=== PATIENT | female | born 1980 | race Caucasian/White ===

== ENCOUNTER → 2018-05-01 13:58 | Outpatient (CLI) | payer OTHER, SELFPAY ==
[2018-05-01 18:16] LABS: Hemoglobin A1c 5.3 % (4.2-6.3)
[2018-05-01 18:29] LABS: Estradiol 152.4 pg/mL; Free T3 2.8 pg/mL (2.18-3.98); T4 Free Direct 1.12 ng/dL (0.76-1.46); Thyroid Stim Hormone (TSH) 0.94 uIU/mL (0.358-3.74)
[2018-05-01 18:30] LABS: Progesterone Level 8.42 ng/mL (See Comment)
== END ==
PROVIDERS: Family Provider Family Medicine; PCP Family Medicine; Visit Provider Family Medicine
DX: D50.9 Iron deficiency anemia, unspecified (principal); N92.0 Excessive and frequent menstruation with regular cycle
CPT/HCPCS: 36415; 82670; 83036; 84144; 84403; 84439; 84443; 84481

== ENCOUNTER → 2018-05-09 10:15 | Outpatient (CLI) | payer OTHER, SELFPAY ==
[2018-05-09 10:31] LABS: Absolute Lymphocyte Count 1.48 X10^3/ul (0.83-4.51); Absolute Neutrophil Count 3.2 X10^3/uL (2.0-7.7); Basophil# 0.01 X10^3/uL; Basophil% 0.2 % (0-1); Eosinophils% 7.3 % (0-5); Hematocrit 33.3 % (37-47); Hemoglobin 9.3 g/dl (12.0-15.0); Lymphocyte # 1.48 X10^3/ul (4.0); Lymphocyte % 27.1 % (19-41); Mean Corp Hgb Conc 27.9 g/gl (32-36); Mean Corpuscular Hgb 19.8 pg (27.0-32.0); Mean Corpuscular Volume 70.9 fL (81-99); Mean Platelet Vol. 9.9 fl (6.2-12.0); Monocyte# 0.35 X10^3/uL; Monocyte% 6.4 % (0-10); Neutrophil # 3.22 X10^3/uL (2.7-7.7); Neutrophil % 58.8 % (47-70); Platelet Count 362 K/mm3 (150-450); RBC Distribution Width CV 16.9 % (11.6-14.6); RBC Distribution Width SD 43.8 fl (35.1-43.9); White Blood Count 5.5 K/mm3 (4.4-11.0)
[2018-05-09 10:32] LABS: Differential Indicated SCAN CRITERIA MET; POSITIVE COUNT NO; POSITIVE DIFFERENTIAL NO; POSITIVE MORPHOLOGY YES
[2018-05-09 10:53] LABS: Ferritin 3 ng/mL (8-252); Iron 12 ug/dL (50-170)
[2018-05-09 11:00] LABS: Anisocytosis 1+; Hypochromasia 1+
== END ==
PROVIDERS: Family Provider Family Medicine; PCP Family Medicine; Visit Provider Family Medicine
DX: D50.9 Iron deficiency anemia, unspecified (principal)
CPT/HCPCS: 36415; 82728; 83540; 85025

== ENCOUNTER 2018-06-07 11:59 | Day surgery (SDC) | payer OTHER, SELFPAY ==
[2018-05-31 09:51] LABS: Prothrombin Time (Protime)PT. 13.4 SECONDS (11.7-14.9)
[2018-05-31 09:52] LABS: Partial Thromboplast Time 34.9 Seconds (24.1-36.2)
[2018-05-31 10:05] LABS: Hematocrit 36.6 % (37-47); Hemoglobin 10.5 g/dl (12.0-15.0); Mean Corp Hgb Conc 28.7 g/gl (32-36); Mean Corpuscular Hgb 20.8 pg (27.0-32.0); Mean Corpuscular Volume 72.3 fL (81-99); Mean Platelet Vol. 9.9 fl (6.2-12.0); Platelet Count 372 K/mm3 (150-450); RBC Distribution Width CV 19.4 % (11.6-14.6); RBC Distribution Width SD 50.3 fl (35.1-43.9); Red Blood Count 5.06 M/mm3 (4.2-5.4); White Blood Count 6.5 K/mm3 (4.4-11.0)
[2018-05-31 10:07] LABS: Scan Indicated on CBC? Y/N YES- FLAGS NOTED
[2018-05-31 10:42] LABS: Differential Comment SCANNED
[2018-06-03 07:07] LABS: Protein C Antigen 96 % (60-150)
[2018-06-05 12:43] LABS: Protein C, Functional 121 % (73-180); Protein S, Free 77 % (57-157); Protein S, Funtional 71 % (63-140); Protein S, Total 73 % (60-150)
--- NOTE | 2018-06-07 | EMB_PTH ---
PATIENT: FLAVIO GUTIERREZ [place] [facility] [place][id number] AGE/SX: 38/F ROOM: RE06/07/[address]: Dr. Alicja Grajeda MD : 1980 BED: DIS: 06/07/2018 SPEC #: [id number] RECD: 06/07/18 14:45 STATUS: KAYA REChinmay #: [id number] UDAY: 06/07/18 00:[address]: Alicja Grajeda DEPT: SURGICAL PATHOLOGY RECD BY: Paras Tran ENTERED: 06/07/18 14:45 SP TYPE: ENDOM BX/C BAILEE DR: DO Dr. Frank Kaufman DO Tissues: Endometrium, NOS Procedures: Surgery Specimen Level IV HEADER OPERATION: Hysteroscopy, dilation and curettage PRE-OP DIAGNOSIS: Thickened endometrium and menorrhagia TISSUE SUBMITTED: Endometrium MICROSCOPIC DIAGNOSIS Endometrial curettings: Proliferative endometrium with glandular and stromal breakdown. Fragments of benign endocervical mucosa with chronic inflammation and squamous metaplasia, fragments of benign ectocervical epithelium, blood and mucous. FAVIO:romeo 06/08/18 MICROSCOPIC DESCRIPTION Slides are reviewed. GROSS DESCRIPTION Received in fixative is one container labeled with the patient's name and designated endometrium. The specimen consists of multiple fragments of hemorrhagic soft tissue mixed with mucoid tissue that in aggregate measure 5 x 3 x 0.3 cm. The entire specimen is submitted in two cassettes. / FAVIO:romeo 06/07/18 TC:5 CPT: 70491
[2018-06-07 12:17] VITALS: BP 116/81; PULSE 98; RESP 18; TEMP 36.9; O2SAT 97; BMI 40.6
[2018-06-07] MEDS: Heparin Injection 5,000 UNITS/ML Syringe 5000 UNITS SC (12:26)
[2018-06-07 13:55] VITALS: BP 116/81; BP 123/56; PULSE 118; RESP 16; TEMP 36.6; O2SAT 96
[2018-06-07 14:00] VITALS: BP 116/81; BP 121/66; PULSE 96; RESP 16; O2SAT 94
[2018-06-07 14:05] VITALS: BP 116/81; BP 126/72; PULSE 97; RESP 16; O2SAT 96
--- NOTE | 2018-06-07 14:07 | PCM.OPRPT ---
Problem List (1) Menorrhagia Status: Acute (2) Menorrhagia Status: Acute (3) Endometrial thickening on ultrasound Status: Acute Report of Operation Date of Procedure: 06/07/18 Pre-Operative Diagnosis: Menorrhagia and thickened endometrium Post-Operative Diagnosis: Same plus multiple fibroids Surgery/Procedure Performed:: DNC, and diagnostic hysteroscopy Description of Surgical Findings:: Uterus was sounded to approximately 9 cm in an anterior position. Uterus was fully mobile. Protruding fibroids from the myometrium. cna pct: Jenae Benitez Anesthesiologist: Shawn Martin Special Medications: 10 cc of 1% lidocaine placed to the cervix Specimen's removed: Endometrium Drains: None Estimated Blood Loss (mL): Minimal Fluids Replaced: Lactated Ringer Description of Procedure: The patient presented to the operating suite and n.p.o. status from midnight the night before. Patient was placed on the operating table and underwent MAC anesthesia after monitors were placed. A timeout had occurred upon the patient entering the room. Once the MAC anesthetic was found to be adequate she was placed in the dorsal lithotomy position via the Sherif stirrups. The patient then underwent prepping and draping she also had straight catheter. The uterus was sounded to about 9 cm in an anterior position. Cervical eyes was easily dilated to accommodate a 5 mm hysteroscope. Entry into the endometrial cavity with the hysteroscope revealed multiple fibroids appearing to be protruding from the muscular part of the uterus into the endometrial cavity rights. Collection of that tissue occurred and was sent for pathological evaluation. Replacement of the hysteroscope into the endometrial cavity revealed removal of the visible tissue that have been noted previously. Hysteroscope was removed the patient was awakened in stable condition and taken to recovery room for discharge to the home setting. Grafts/Implants Used: None - Complications None - Admit VTE Documentation VTE Present on Admission: No VTE Mechan Device Prophylaxis: SCD's VTE Pharm Prophylaxis ordered?: Yes
[2018-06-07 14:08] VITALS: BP 116/79; BP 116/81; PULSE 95; RESP 16; TEMP 36.6; O2SAT 98
--- NOTE | 2018-06-07 14:14 | PCM.DC.D&C ---
Discharge Diet: No Restrictions Discharge Activity: Return to Normal Activity, May Shower, May Take a Tub Bath - in 2 weeks. Return to work on:: 06/12/18 May shower in (days): 0 - TODAY May resume sexual activity in: 2 weeks Weight Bearing Status: Full weight bearing Lifting Restrictions: 10 Additional Activity Instructions:: Ambulate often with periods of rest between Call your doctor if you observe: Inability to urinate, Inability to have a bowel movement, Using more than one pad per hour Cleanse incision/area with: Soap & Water Allergies/Adverse Reactions: Allergies iodine Allergy (Verified 05/26/18 14:22) Unknown shellfish Allergy (Uncoded 07/20/13 05:28) Swelling Medications to take at Discharge Ferrous Sulfate [Iron] 325 mg PO DAILY 05/26/18 Multivitamin [Animal Shapes] 2 each PO DAILY 05/26/18 Oxycodone HCl/Acetaminophen [Percocet 5/325] 1 - 2 tab PO Q4H PRN PRN 7 Days #14 tab 06/07/18 The following prescriptions were given: Oxycodone HCl/Acetaminophen [Percocet 5/325] 1 - 2 tab PO Q4H PRN PRN 7 Days #14 tab PRN Reason: Cramp Primary Care Physician: Alize Narayanan DO [Primary Care Provider] - Test Results: Test results from this visit will be discussed in further detail at your follow-up appointment, if applicable. Please Follow Up With: Alicja Grajeda MD When: one week in office. Call for appointment if not already arranged
[2018-06-07 15:32] VITALS: BP 116/81
== END 2018-06-07 15:35 | disposition home or self-care (01) ==
LOC: SDC 11:59 → AC 12:00
PROVIDERS: Family Provider Family Medicine; PCP Family Medicine; Visit Provider Obstetrics & Gynecology
PROC: 0UDB8ZZ Extraction of Endometrium, Via Natural or Artificial Opening Endoscopic (ICD-10-PCS; CPT 58558; principal; 2018-06-07 13:25)
DX: N92.0 Excessive and frequent menstruation with regular cycle (principal); D25.9 Leiomyoma of uterus, unspecified; N85.8 Other specified noninflammatory disorders of uterus; R93.8 Abnormal findings on diagnostic imaging of other specified body structures; L93.0 Discoid lupus erythematosus; J45.909 Unspecified asthma, uncomplicated; K58.9 Irritable bowel syndrome, unspecified; K21.9 Gastro-esophageal reflux disease without esophagitis; Z79.899 Other long term (current) drug therapy
CPT/HCPCS: 58558; 36415; 85027; 85302; 85303; 85305; 85306; 85610; 85730; 86850; 86900; 88305; J7120

== ENCOUNTER 2018-11-02 11:10 | Day surgery (SDC) | payer OTHER, SELFPAY ==
[2018-10-26 14:56] LABS: Hematocrit 42.5 % (37-47); Mean Corp Hgb Conc 30.6 g/gl (32-36); Mean Corpuscular Hgb 25.7 pg (27.0-32.0); Mean Platelet Vol. 10.4 fl (6.2-12.0); Platelet Count 294 K/mm3 (150-450); RBC Distribution Width CV 14.5 % (11.6-14.6); RBC Distribution Width SD 44.2 fl (35.1-43.9); Red Blood Count 5.06 M/mm3 (4.2-5.4); White Blood Count 7.5 K/mm3 (4.4-11.0)
[2018-10-26 14:57] LABS: Scan Indicated on CBC? Y/N NO
[2018-10-26 15:07] LABS: Prothrombin Time (Protime)PT. 12.8 SECONDS (11.7-14.9)
[2018-10-26 15:08] LABS: Partial Thromboplast Time 33.6 Seconds (24.1-36.2)
[2018-11-02] VITALS (10 sets, daily range): BP systolic 93–134; BP diastolic 56–72; PULSE 68–96; RESP 16–18; TEMP 36.2–37.2; O2SAT 93–100; BMI 41.2
[2018-11-02 11:32] LABS: Internal QC Validated? YES +Cl - CLEAR BKGD; Pregnancy, Urine Negative Negative
[2018-11-02 11:54] LABS: Anion Gap 9 (5-15); BUN 7 mg/dL (7-18); BUN/Creat Ratio 9.5 RATIO (10-20); Calcium,Total 8.1 mg/dL (8.5-10.1); Chloride 106 mmol/L (98-107); Creatinine, Serum 0.74 mg/dL (0.55-1.02); EST Glomerular Filtration Rate 93 mL/min (>60); Est Glom Filt Rate - Afr Amer 112 mL/min (>60); Estimated Creatinine Clearance 84.43 ml/min; Glucose 83 mg/dL (74-106); Potassium 3.7 mmol/L (3.5-5.1); Sodium Level 140 mmol/L (136-145)
--- NOTE | 2018-11-02 12:03 | HP.PCM_ITS ---
- Problem List (1) Menorrhagia Status: Acute History Date of Admission: 11/02/18 History of this : This is a 38 year-old, G [], P [], at weeks gestational age. Allergies iodine Allergy (Verified 10/26/18 10:08) Unknown shellfish Allergy (Uncoded 10/26/18 10:08) Swelling Home Medications: Home Medications Ferrous Sulfate [Iron] 325 mg PO DAILY 05/26/18 Multivitamin [Animal Shapes] 2 each PO DAILY 05/26/18 Albuterol Inhaler [Ventolin Hfa (SP)] 1 - 2 puff INHALATION Q4H PRN PRN 10/26/18 Progesterone, Micronized [Progesterone] 300 mg PO DAILY 10/26/18 Smoking Status: Never smoker History Past Pregnancies: Past Pregnancies Delivery Date Name GA/Weeks Outcome Route Weight Gender Labor Length Anesthesia Delivery Location Provider FOB Review of Systems Constitutional: Denies: Chills, Fever, Weight Change HEENT: Denies: Difficulty Hearing, Difficulty Swallowing, Nasal bleeding, Nasal Congestion, Sore Throat Cardiovascular: Denies: Chest Pain, Palpitations Respiratory: Denies: Shortness of Breath, Wheezing Gastrointestinal: Denies: Constipation, Diarrhea, Nausea, Vomiting Genitourinary: Denies: Dysuria, Frequency, Hematuria, Incontinence, Urgency Gynecological: Reports: Excessively long or heavy periods Musculoskeletal: Denies: Joint Pain, Muscle pain Skin: Denies: Lesions, Skin Changes Neurological: Denies: Focal weakness, Numbness Psychiatric: Denies: Anxiety, Depression Endocrine: Denies: Heat/ Cold Intolerance Hematologic/ Lymphatic: Denies: Easy Bleeding Physical Exam Vitals: Vital Signs Temp Pulse Resp BP Pulse Ox 99.0 F 85 18 134/72 H 100 11/02/18 11:31 11/02/18 11:31 11/02/18 11:31 11/02/18 11:31 11/02/18 11:31 General: Alert, Oriented x3, No apparent distress HEENT: Atraumatic, Normocephalic. 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 Negative for: Vulvar lesions Assessment/Plan All Active Problems Menorrhagia (Acute) Menorrhagia (Acute) Endometrial thickening on ultrasound (Acute) This is a 38 year-old, long standing history of menorrhagia with known leiomyoma. Attempts to control cycles medically have been futile. Endometrial evaluation via D and C in July, with benign endometrium. Request for hysterectomy. 1. Menorrhagia 2. Leiomyoma 3. LTCS history patient request for hysterectomy. No prolapse noted and suspected pelvic adhesive disease. Decision for robotic assisted hysterectomy, possible oophorectomy if diseased anatomy. The preop preparation including bowel prep, the intraop procedures and the postop recovery reviewed. The risks of bleeding, infection and other organ damage including bladder, bowel and ureteral damage reviewed, accepted and consented. 4. Prior cholecystectomy
--- NOTE | 2018-11-02 13:00 | HYST_PTH ---
PATIENT: FLAVIO GUTIERREZ LOC: [facility] [place] U#:[id number] AGE/SX: 38/F ROOM: RE11/02/[address]: Dr. Alicja Grajeda MD : 1980 BED: DIS: 11/03/2018 SPEC #: [id number] RECD: 11/03/18 07:15 STATUS: KAYA CANDE #: [id number] UDAY: 11/02/18 13:[address]: Alicja Grajeda DEPT: SURGICAL PATHOLOGY RECD BY: Paras Tran ENTERED: 11/03/18 09:08 SP TYPE: HYSTERECT OTHR DR: Dr. Alize Narayanan, DO Tissues: Uterus, NOS Procedures: Surgery Specimen Level V HEADER OPERATION: Robotic assisted vaginal hysterectomy, bilateral salpingo-oophorectomy PRE-OP DIAGNOSIS: Menorrhagia, leiomyoma TISSUE SUBMITTED: Uterus, cervix, bilateral fallopian tubes MICROSCOPIC DIAGNOSIS Uterus, hysterectomy: Cervix - focal acute inflammation, mild chronic inflammation and squamous metaplasia. Endometrial polyps - benign endometrial polyp with mixed secretory and focal simple hyperplasia without atypia. [place] endometrium - secretory change. Myometrium - hyalinized leiomyoma with microcalcifications and extensive adenomyosis. Right fallopian tube - no pathologic change. Left fallopian tube - benign paratubal cysts. AM:romeo 11/06/18 MICROSCOPIC DESCRIPTION Slides are reviewed. GROSS DESCRIPTION Received in fixative is one container labeled with the patient's name and designated uterus. The specimen consists of a uterus with attached cervix and attached right and left fallopian tubes. The uterus with cervix measures 9.5 x 6 x 5.5 cm and weighs 132 gm. The cervix is grossly free of mass lesions. The anterior surface of the uterus is irregular. The endocervical canal measures 4 cm in length and is grossly unremarkable. The triangular endometrial cavity measures 5 x 3.5 cm and is completely occupied by a soft pink-washington polyp measuring 5.5 x 3 x 1.2 cm. Serial sections of the myometrium reveal a firm, rubbery polypoid mass measuring 3 cm in greatest dimension. This mass appears to be contiguous with the endometrial polyp previously described. The myometrium without polyp measures 1.6 cm in thickness. This larger polypoid lesion is present in the posterior wall. The posterior serosal surface is inked in black ink. Also present in the subserosal location is a firm, rubbery and indurated yellow-washington lesion measuring 1.5 cm in greatest dimension. The right and left fallopian tubes are similar in appearance averaging 6 cm in length and 0.6 cm in average diameter. The right fallopian tube contains a normal appearing fimbriated end. The left fallopian tube contains a normal appearing fimbriated end. The soft tissue adjacent to the fimbriated end contains two glistening peritubal cysts ranging in size from 1 to 1.5 cm and containing clear fluid. Electric Power Machine Operator sections are submitted in 16 cassettes as follows: 1 - anterior cervix, inked, 2 - posterior cervix, 3-6 - endometrial polyp with adjacent myometrium, 7 - anterior myometrial wall, 8 & 9 - posterior myometrial wall, 10 - smaller myometrial nodule, 11-14 - larger myometrial nodule, 15 - right fallopian tube, 16 - left fallopian tube and paratubal cysts. / AM:romeo 11/03/18 TC:1 CPT: 22739
[2018-11-02] MEDS: Methylene Blue 1% 100 MG/10 ML VIAL (14:45)
--- NOTE | 2018-11-02 15:17 | PCM.OPRPT ---
Problem List (1) Menorrhagia Status: Acute Report of Operation Date of Procedure: 11/02/18 Pre-Operative Diagnosis: Menorrhagia and uterine leiomyoma Post-Operative Diagnosis: Same plus pelvic adhesive disease Surgery/Procedure Performed:: Extensive enterolysis, bilateral salpingectomy bladder instillation with methylene blue Description of Surgical Findings:: Piece of disease was encountered at the vesicouterine peritoneal region which correlated to the prior that the patient had. Bilateral ovaries noted to be normal with bilateral Filshie clips related to prior tubal ligation customer experience specialist: Dennys Hill Type of Anesthesia:: General Anesthesiologist: Manny Swann Special Medications: Cefotetan 2gms IV preop and Paulette placed to the pelvis Specimen's removed: Cervix, uterus, bilateral fallopian tubes Drains: none Estimated Blood Loss (mL): 200 cc Fluids Replaced: Lactated ringer Description of Procedure: Patient presented to the operating room status. Patient undergone a palp in the home setting. Timeout occurred upon entry into the room the patient was then placed on the surgical bed of the via the setting. Was found to be adequate the patient was placed in the dorsolithotomy position. Tilt test occurred and no movement was noted. Patient was then prepped and draped in the normal sterile fashion Pittman catheter was placed by myself illustrating the Pyridium stained urine. Into the cervix was grasped elevated uterus was sounded to approximately 97 cm in anteflexed position. The middle sized the weighted speculum and then was then removed. Gloves were changed and moving to the top of the patient the patient had Correa's point identification and final millimeter incision through this incision site Veress needle was placed in water test reassured abdominal cavity. A Visiport was then used to place a 5 mm laparoscope into the incision with full visualization. Irrigation of the pelvis revealed that no infraumbilical adhesions were noted at the prior cholecystectomy site but a tremendous amount of vesicouterine pelvic adhesive disease was noted. The 8 mm nondisposable robotic trocar was placed under direct visualization in the umbilicus for the camera. Left and right robotic arms each being by 8 mm were placed under direct visualization in the left and right mid quadrants. The right upper quadrant became the location of the insufflator. The robot was then docked to the patient's side and robotic arms were connected to robotic trochars. The left robotic arm became the vessel sealer in the right robotic arm became the monopolar preico. Each was placed under direct visualization. At this point in time de-gowned and went to the consult the robot to take over control of the robotic function. Once at the robotic console christianity of normal anatomy with extreme and extensive enteral lysis occurred. The bladder had been backfilled with methylene blue to aid in the identification of the bladder with the extensive enteral lysis at the vesicouterine peritoneum. The left round ligament was grasped cauterized and transected the broad ligament into anterior and posterior leaves. The left fallopian tube was dissected away from the through the mesosalpinx and the uterine ovarian ligament was cauterized and transected. Skeletonization of the uterine vessels on the pain uterine vessels on the patient's left side occurred and cauterization and transection of the uterine vessels thus occurred. Moving to the right side of the patient the round ligament was identified cauterized and transected the broad ligament anterior posterior leaves and the right fallopian tube was disconnected through the mesosalpinx as was the utero-ovarian ligament which was cauterized and then transected. Skeletonization of the uterine vessels occurred. With the methylene blue instilled inside the bladder careful and precise dissection of the vesicouterine peritoneum away from the uterus occurred. The cardinal ligament was identified cauterized and transected bilaterally. The uterosacral ligament was identified and cauterized and transected bilaterally as well. Continue enteral lysis occurred around the sidewall of the uterus on both sides with the eventual notation of the vesicouterine peritoneal larynx that was safely removed from the lower uterine segment. Incision at the cervix at the 12:00 region was continued for colpotomy in the clockwise fashion sequentially around the entire cervical region releasing the cervix away from the vaginal mucosa. Direct uterus bilateral fallopian tubes were then removed from the vagina. Identification and tracing of both ureters was noted to be well away from the area of surgery and peristalsis was noted bilateral. Irrigation of the pelvis occurred at the same time. The instruments were changed with the left arm being a large grasper in the right arm being made a suture cut. My collections assistant sequentially placed over Vicryl sutures through the collections assistant port so that initially a angle stitch connecting the vaginal cuff to the uterosacral cardinal complex and occurred and hemostasis was noted. This occurred first on the left side followed by the exact same stitch on the patient's right vaginal cuff. 2 additional stitches of 0 Vicryl suture in [id number] fashion were placed at the vaginal cuff. Hemostasis was noted. Irrigation occurred. Paulette was then placed to the entire pelvic region. The sponge, instrument counts, and suture were correct x2. Patient was awakened in stable condition to be taken to the recovery room for overnight observation. Grafts/Implants Used: None - Complications None - Admit VTE Documentation VTE Present on Admission: No VTE Mechan Device Prophylaxis: SCD's VTE Pharm Prophylaxis ordered?: No Reason prophylaxis not ordered:: Procedure Not Indicated
--- NOTE | 2018-11-02 15:30 | OP.PCM_ITS ---
Problem List (1) Menorrhagia Status: Acute Report of Operation Date of Procedure: 11/02/18 Pre-Operative Diagnosis: Menorrhagia and uterine leiomyoma Post-Operative Diagnosis: Same plus pelvic adhesive disease Surgery/Procedure Performed:: Extensive enterolysis, bilateral salpingectomy bladder instillation with methylene blue Description of Surgical Findings:: Piece of disease was encountered at the vesicouterine peritoneal region which correlated to the prior that the patient had. Bilateral ovaries noted to be normal with bilateral Filshie clips related to prior tubal ligation buhr mill operator: Dennys Hill Type of Anesthesia:: General Anesthesiologist: Manny Swann Special Medications: Cefotetan 2gms IV preop and Paulette placed to the pelvis Specimen's removed: Cervix, uterus, bilateral fallopian tubes Drains: none Estimated Blood Loss (mL): 200 cc Fluids Replaced: Lactated ringer Description of Procedure: Patient presented to the operating room status. Patient undergone a palp in the home setting. Timeout occurred upon entry into the room the patient was then placed on the surgical bed of the via the setting. Was found to be adequate the patient was placed in the dorsolithotomy position. Tilt test occurred and no movement was noted. Patient was then prepped and draped in the normal sterile fashion Pittman catheter was placed by myself illustrating the Pyridium stained urine. Into the cervix was grasped elevated uterus was sounded to approximately 97 cm in anteflexed position. The middle sized the weighted speculum and then was then removed. Gloves were changed and moving to the top of the patient the patient had Correa's point identification and final millimeter incision through this incision site Veress needle was placed in water test reassured abdominal cavity. A Visiport was then used to place a 5 mm laparoscope into the incision with full visualization. Irrigation of the pelvis revealed that no infraumbi lical adhesions were noted at the prior cholecystectomy site but a tremendous amount of vesicouterine pelvic adhesive disease was noted. The 8 mm nondisposable robotic trocar was placed under direct visualization in the umbilicus for the camera. Left and right robotic arms each being by 8 mm were placed under direct visualization in the left and right mid quadrants. The right upper quadrant became the location of the insufflator. The robot was then docked to the patient's side and robotic arms were connected to robotic trochars. The left robotic arm became the vessel sealer in the right robotic arm became the monopolar perico. Each was placed under direct visualization. At this point in time de-gowned and went to the consult the robot to take over control of the robotic function. Once at the robotic console baptist of normal anatomy with extreme and extensive enteral lysis occurred. The bladder had been backfilled with methylene blue to aid in the identification of the hannah dder with the extensive enteral lysis at the vesicouterine peritoneum. The left round ligament was grasped cauterized and transected the broad ligament into anterior and posterior leaves. The left fallopian tube was dissected away from the through the mesosalpinx and the uterine ovarian ligament was cauterized and transected. Skeletonization of the uterine vessels on the pain uterine vessels on the patient's left side occurred and cauterization and transection of the uterine vessels thus occurred. Moving to the right side of the patient the round ligament was identified cauterized and transected the broad ligament anterior posterior leaves and the right fallopian tube was disconnected through the mesosalpinx as was the utero-ovarian ligament which was cauterized and then transected. Skeletonization of the uterine vessels occurred. With the methylene blue instilled inside the bladder careful and precise dissection of the vesicouterine peritoneum away from the uterus occurred. The cardinal ligament was identified cauterized and transected bilaterally. The uterosacral ligament was identified and cauterized and transected bilaterally as well. Continue enteral lysis occurred around the sidewall of the uterus on both sides with the eventual notation of the vesicouterine peritoneal larynx that was safely removed from the lower uterine segment. Incision at the cervix at the 12:00 region was continued for colpotomy in the clockwise fashion sequentially around the entire cervical region releasing the cervix away from the vaginal mucosa. Direct uterus bilateral fallopian tubes were then removed from the vagina. Identification and tracing of both ureters was noted to be well away from the area of surgery and peristalsis was noted bilateral. Irrigation of the pelvis occurred at the same time. The instruments were changed with the left arm being a large grasper in the right arm being made a suture cut. My scheduling assistant sequentially placed over Vicryl sutures through the scheduling assistant port so that initially a angle stitch connecting the vaginal cuff to the uterosacral cardinal complex and occurred and hemostasis was noted. This occurred first on the left side followed by the exact same stitch on the patient's right vaginal cuff. 2 additional stitches of 0 Vicryl suture in [id number] fashion were placed at the vaginal cuff. Hemostasis was noted. Irrigation occurred. Paulette was then placed to the entire pelvic region. The sponge, instrument counts, and suture were correct x2. Patient was awakened in stable condition to be taken to the recovery room for overnight observation. Grafts/Implants Used: None - Complications None - Admit VTE Documentation VTE Present on Admission: No VTE Mechan Device Prophylaxis: SCD's VTE Pharm Prophylaxis ordered?: No Reason prophylaxis not ordered:: Procedure Not Indicated
[2018-11-02] MEDS: Lactated Ringers 1,000 ML 125 ML IV (16:32)
[2018-11-02] MEDS: Phenazopyridine 95 MG Tablet 190 MG PO (21:25)
[2018-11-02] MEDS: Ketorolac 30 MG/ML Syringe IV (21:26)
[2018-11-02] MEDS: Metoclopramide 10 MG/2 ML Vial IV (21:26)
[2018-11-02] MEDS: Famotidine 20 MG Tablet PO (21:28)
[2018-11-03] MEDS: Lactated Ringers 1,000 ML 125 ML IV (00:08)
[2018-11-03] MEDS: Ketorolac 30 MG/ML Syringe IV (03:33)
[2018-11-03 03:36] VITALS: BP 103/63; PULSE 83; RESP 16; TEMP 36.8; O2SAT 95
[2018-11-03] MEDS: Metoclopramide 10 MG/2 ML Vial IV (06:25)
[2018-11-03] MEDS: Phenazopyridine 95 MG Tablet 190 MG PO (06:25)
[2018-11-03 06:34] LABS: Hematocrit 35.4 % (37-47); Hemoglobin 11.2 g/dl (12.0-15.0); Mean Corp Hgb Conc 31.6 g/gl (32-36); Mean Corpuscular Hgb 26.7 pg (27.0-32.0); Mean Corpuscular Volume 84.3 fL (81-99); Mean Platelet Vol. 10.5 fl (6.2-12.0); Platelet Count 257 K/mm3 (150-450); RBC Distribution Width CV 13.9 % (11.6-14.6)
[2018-11-03 06:36] LABS: Scan Indicated on CBC? Y/N NO
[2018-11-03 09:45] VITALS: BP 121/65; PULSE 81; RESP 18; TEMP 36.6; O2SAT 98
[2018-11-03] MEDS: Ketorolac 10 MG Tablet PO (09:45)
[2018-11-03] MEDS: Famotidine 20 MG Tablet PO (09:47)
--- NOTE | 2018-11-03 10:02 | DCINST_ITS ---
Discharge Diet: - - No beef, pork or fresh vegetables for 2 weeks after surgery. Water intake a minimum of 120 ounces daily. Protein shakes or smoothies encouraged at least 2x daily. Discharge Activity: Return to Normal Activity, May Not Drive - while taking narcotic pain medications., May Shower May shower in (days): 0 - TODAY May resume sexual activity in: 8 weeks Weight Bearing Status: Full weight bearing Lifting Restrictions: 5 pounds Additional Activity Instructions:: Ambulate frequently around the house with periods of rest in between. Limit stairs. Call your doctor if your incision/area has: Sudden Increased Bleeding Call your doctor if you observe: Inability to urinate, Inability to have a bowel movement, Using more than one pad per hour Remove Dressing in (days):: 0 - TODAY. remove with warm, soapy water and leave open to air Cleanse incision/area with: Soap & Water Allergies/Adverse Reactions: Allergies iodine Allergy (Verified 10/26/18 10:08) Unknown shellfish Allergy (Uncoded 10/26/18 10:08) Swelling Medications to take at Discharge Multivitamin [Animal Shapes] 2 each PO DAILY 05/26/18 Albuterol Inhaler [Ventolin Hfa (SP)] 1 - 2 puff INHALATION Q4H PRN PRN 10/26/18 Primary Care Physician: Alize Narayanan DO [Primary Care Provider] - Test Results: Test results from this visit will be discussed in further detail at your follow- up appointment, if applicable. Please Follow Up With: Alicja Grajeda MD When: 1-2 weeks
--- NOTE | 2018-11-03 10:42 | PCM.PN.OB ---
Subjective: Feels well this am. Ambulating well. + flatus. Tolerating po intake of meds and diet. - Physical Exam General: No apparent distress, Well developed, Well nourished HEENT: PERRLA, EOMI, Normocephalic Oral: Moist Mucosa Neck: Supple Lungs: Clear to auscultation, Normal air movement Cardiovascular: Regular rate, Regular Rhythm Abdomen: Bowel Sounds Present, Soft, Non Tender, Non-Distended - Incisions x 5 are bandaged and stable Extremities: No edema, No Calf Tenderness Skin: No rashes Musculoskeletal: No Tenderness to Palpation of Joints or Extremities, No Muscle Wasting Neurological: Cranial nerves II-XII grossly intact Vital Signs Temp Pulse Resp BP Pulse Ox 98.3 F 83 16 103/63 95 11/03/18 03:36 11/03/18 03:36 11/03/18 03:36 11/03/18 03:36 11/03/18 03:36 Oxygen Flow Rate (L/min) 2 Oxygen Delivery Method Room Air Weight: 232 lb 12.93 oz Body Mass Index (BMI) 41.2 Intake and Output for Last 24 Hours 11/01/18 11/02/18 11/03/18 23:59 23:59 23:59 Intake Total 2450 / 2450 2069 / 0 Output Total 150 / 150 1999 / 1999 Balance 2300 / 2300 70 / 70 Laboratory Tests Past 24 Hrs 11/02/18 11/02/18 11/03/18 11:22 11:30 06:10 WBC 10.0 RBC 4.20 Hgb 11.2 L Hct 35.4 L MCV 84.3 MCH 26.7 L MCHC 31.6 L RDW 13.9 RDW Differential 42.0 Plt Count 257 MPV 10.5 Sodium 140 Potassium 3.7 Chloride 106 Carbon Dioxide 25.0 Anion Gap 9 BUN 7 Creatinine 0.74 Estim Creat Clear Calc 84.43 Est GFR (MDRD) Af Amer 112 Est GFR (MDRD) Non-Af 93 BUN/Creatinine Ratio 9.5 L Glucose 83 Calcium 8.1 L Urine Test Negative Medical Necessity - Tobacco Use Smoking Status: Never smoker Tobacco Use: Non-smoker Assessment/Plan All Active Problems Menorrhagia (Acute) Menorrhagia (Acute) Endometrial thickening on ultrasound (Acute) 1. POD #1 - robotic assisted hysterectomy, bilateral salpingectomy and extensive enterolysis ambulating well tolerating oral pain meds + flatus voiding well discharge to home 2. Asthma stable
== END 2018-11-03 11:35 | disposition home or self-care (01) ==
LOC: SDC 11:11 → AC 11:19 → MS2 16:26
PROVIDERS: Family Provider Family Medicine; PCP Family Medicine; Referring Provider Obstetrics & Gynecology; Visit Provider Obstetrics & Gynecology
PROC: 0UT94ZZ Resection of Uterus, Percutaneous Endoscopic Approach (ICD-10-PCS; CPT 44005; principal; 2018-11-02 12:40)
DX: N84.0 Polyp of corpus uteri (principal); N92.0 Excessive and frequent menstruation with regular cycle; J45.909 Unspecified asthma, uncomplicated; D26.1 Other benign neoplasm of corpus uteri; N83.8 Other noninflammatory disorders of ovary, fallopian tube and broad ligament; N73.6 Female pelvic peritoneal adhesions (postinfective); Z98.51 Tubal ligation status; Z90.49 Acquired absence of other specified parts of digestive tract; Z91.013 Allergy to seafood
CPT/HCPCS: 44005; 51700; 58700; 36415; 80048; 81025; 85027; 85610; 85730; 86850; 86900; 88307; 97802; J7120; J2405

== ENCOUNTER → 2020-03-06 14:36 | Outpatient (CLI) | payer OTHER, SELFPAY ==
[2018-11-02 17:21] VITALS: BMI 41.2
--- NOTE | 2020-03-06 14:45 | CT_ITS ---
STUDY: CT ABDOMEN WITH CONTRAST REASON FOR EXAM: Female, 40 years old. RLQ PAIN, SMALL PALPABLE MASS X MONTHS. CONSTIPATION. RADIATION DOSAGE (If Supplied By Facility): CTDIvol = ( 14.775 ) mGy, DLP = ( 1176.20 ) mGycm TECHNIQUE: Transaxial images were obtained post I.V. administration of Oral and amp; IV Readi-CAT and amp; 100mL Isovue-300, and with oral contrast. Sagittal and coronal images were reconstructed. Individualized dose optimization techniques were used for this CT. COMPARISON: None. FINDINGS: The visualized lung bases are unremarkable. The visualized portions of the heart are within normal limits. Normal liver. The patient is status post cholecystectomy. Normal spleen. Normal pancreas. Normal bilateral adrenal glands. Normal right kidney. Normal left kidney. There is a small hiatal hernia. Normal small intestine. Normal colon. The appendix is visualized and appears normal. Normal abdominal aorta. Normal inferior vena cava. There is borderline retroperitoneal lymphadenopathy with enlarged nodes no greater than 10mm in the short axis diameter. The patient is status post hysterectomy. There is evidence of a 3.3 cm x 1.7 cm septated cyst in the right adnexa. Correlation with ultrasound is recommended. There is a 1.5 cm x 1.3 cm rounded soft tissue density in the subcutaneous tissues overlying the right mid abdomen lateral to the umbilicus. This may correspond to the patient''s palpable abnormality. This may be related to either prior trauma or possible subcutaneous injections. Normal osseous structures. CT/Abdomen/Pelvis WITH Contrast IMPRESSION: The palpable abnormality corresponds to a 1.5 cm x 1.3 cm rounded soft tissue density in subcutaneous tissue overlying the right midabdomen as described. 3.3 cm x 1.7 cm septated cyst in the right adnexa. Correlation with ultrasound is recommended. Electronically Signed: Ayaan Katz, at 15:38 EDT , Service support ,
== END ==
PROVIDERS: PCP Family Medicine; Referring Provider Family Medicine; Visit Provider Family Medicine
DX: R10.31 Right lower quadrant pain (principal); R19.00 Intra-abdominal and pelvic swelling, mass and lump, unspecified site
CPT/HCPCS: 74160; 74177; Q9967

== ENCOUNTER → 2020-03-10 12:18 | Outpatient (CLI) | payer OTHER, SELFPAY ==
[2018-11-02 17:21] VITALS: BMI 41.2
--- NOTE | 2020-03-10 12:20 | US_ITS ---
STUDY: ULTRASOUND OF THE FEMALE PELVIS - COMPLETE REASON FOR EXAM: Female, 40 years old. OVARIAN CYST ON CT TECHNIQUE: Transabdominal TECHNICAL QUALITY: Adequate. COMPARISON: None. FINDINGS: The patient is status post hysterectomy. The right ovary is visualized. The right ovary measures 2.3 cm x 2.4 cm x 3.4 cm. There is a 1.4 cm x 1.3 cm x 1.2 cm follicle in the right ovary. There is no visualized right adnexal mass or complex lesion. There is normal arterial and normal venous vascularity. The patient is status post left nephrectomy. There is no fluid in the cul-de-sac. The pre void volume of the bladder was 77 ml. Polycystic ovary disease: No. US/Pelvic (Non ) IMPRESSION: 1.4 cm x 1.3 cm x 1.2 cm dominant follicle in the right ovary. Electronically Signed: Ayaan Katz, at 14:45 EDT , Service support ,
== END ==
PROVIDERS: PCP Family Medicine; Referring Provider Family Medicine; Visit Provider Family Medicine
DX: N83.201 Unspecified ovarian cyst, right side (principal)
CPT/HCPCS: 76856

== ENCOUNTER → 2020-07-21 12:17 | Outpatient (CLI) | payer OTHER, SELFPAY ==
[2018-11-02 17:21] VITALS: BMI 41.2
--- NOTE | 2020-07-21 12:21 | BI_ITS ---
MAMMOGRAPHY - BILATERAL SCREENING REASON FOR EXAM: Female, 40 years old. Routine annual screening examination. PERTINENT HISTORY: Non-contributory. TECHNIQUE: Digital bilateral breast di (3D mammographic acquisition) in the CC and MLO projections. 2-D mediolateral oblique (MLO) and craniocaudad (CC) views of both breasts were obtained. CAD: Full Field Digital Mammography with Computer Added Detection was performed. COMPARISON: None. Baseline examination. FINDINGS: Breast Composition: The breasts are heterogeneously dense, which may obscure small masses. There are no dominant masses or suspicious calcifications. No other significant abnormalities are identified. BI/SCREEN MAMM (CAD) W/DI BILAT IMPRESSION: Negative screening mammogram. Yearly followup mammogram recommended. (A) ASSESSMENT CATEGORY: BIRADS Category 1: Negative. A letter regarding these results will be sent to the patient by the facility within 30 days. Approximately 10% of breast cancers are not detected by mammography. A normal mammogram should not delay biopsy of a clinically suspicious abnormality. [id number] Electronically Signed: Ayaan Katz, at 14:01 EDT , Service support ,
--- NOTE | 2020-07-21 12:21 | US_ITS ---
STUDY: ULTRASOUND OF THE FEMALE PELVIS - COMPLETE REASON FOR EXAM: Female, 40 years old. F/U RT OVARIAN CYST. S/P HYSTERECTOMY AND LEFT OOPHORECTOMY LMP: TECHNIQUE: Transabdominal TECHNICAL QUALITY: Adequate. COMPARISON: 03/10/2020 FINDINGS: Status post hysterectomy and left oophorectomy. The right ovary is visualized. The right ovary measures 1.9 x 1.9 x 2.0 cm. There is no right ovarian cyst or ovarian mass. There is no visualized right adnexal mass or complex lesion. There is normal arterial and normal venous vascularity. . There is no fluid in the cul-de-sac. The pre void volume of the bladder was ml. The post void volume of the bladder was ml. Polycystic ovary disease: No. US/Pelvic (Non ) IMPRESSION: Normal female pelvis after hysterectomy and left oophorectomy. Electronically Signed: Sonny Astorga MD at 17:51 EDT Tel , Service support ,
== END ==
PROVIDERS: PCP Family Medicine; Referring Provider Family Medicine; Visit Provider Family Medicine
DX: Z12.31 Encounter for screening mammogram for malignant neoplasm of breast (principal); N83.209 Unspecified ovarian cyst, unspecified side
CPT/HCPCS: 76856; 77063; 77067

== ENCOUNTER → 2020-08-01 07:33 | Outpatient (CLI) | payer OTHER, SELFPAY ==
[2018-11-02 17:21] VITALS: BMI 41.2
[2020-08-01 08:16] LABS: Absolute Lymphocyte Count 1.99 X10^3/uL (0.83-4.51); Absolute Neutrophil Count 4.2 X10^3/uL (2.0-7.7); Basophil# 0.03 X10^3/uL; Basophil% 0.4 % (0-1); Eosinophil# 0.39 X10^3/uL; Eosinophils% 5.6 % (0-5); Hemoglobin 14.1 g/dL (12.0-15.0); Lymphocyte # 1.99 X10^3/ul (4.0); Lymphocyte % 28.6 % (19-41); Mean Corp Hgb Conc 31.3 g/dL (32-36); Mean Corpuscular Hgb 27.4 pg (27.0-32.0); Mean Corpuscular Volume 87.4 fL (81-99); Mean Platelet Vol. 9.8 fl (6.2-12.0); Monocyte# 0.39 X10^3/uL; Monocyte% 5.6 % (0-10); NRBC Flagged by Analyzer 0 % (0-5); Neutrophil # 4.16 X10^3/uL (2.7-7.7); Neutrophil % 59.7 % (47-70); Platelet Count 312 K/mm3 (150-450); RBC Distribution Width CV 11.8 % (11.6-14.6); RBC Distribution Width SD 37.9 fl (35.1-43.9); Red Blood Count 5.15 M/mm3 (4.2-5.4)
[2020-08-01 08:43] LABS: ALB/GLOB Ratio 0.8 RATIO (0.9-2.4); AST(SGOT) 11 U/L (15-37); Alanine Aminotransfer ALT/SGPT 26 U/L (13-56); Albumin, Serum 3.3 g/dL (3.2-5.0); Alkaline Phosphatase 60 U/L (45-117); Anion Gap 6 (5-15); BUN 9 mg/dL (7-18); BUN/Creat Ratio 12.9 RATIO (10-20); Calcium,Total 8.2 mg/dL (8.5-10.1); Chloride 104 mmol/L (98-107); Cholesterol 149 mg/dL (200); EST Glomerular Filtration Rate 98 mL/min (>60); Est Glom Filt Rate - Afr Amer 118 mL/min (>60); Globulin 3.9 g/dL (2.2-4.2); Glucose 98 mg/dL (74-106); High Density Lipoprotein 51 mg/dL; Potassium 3.8 mmol/L (3.5-5.1); Protein, Total 7.2 g/dL (6.4-8.2); Sodium Level 138 mmol/L (136-145); Triglycerides 83 mg/dL; Very Low Density Lipoprotein 17 mg/dL (5-40)
== END ==
PROVIDERS: PCP Family Medicine; Referring Provider Family Medicine; Visit Provider Family Medicine
DX: Z13.220 Encounter for screening for lipoid disorders (principal); D50.9 Iron deficiency anemia, unspecified; Z51.81 Encounter for therapeutic drug level monitoring
CPT/HCPCS: 36415; 80053; 80061; 85025

== ENCOUNTER → 2020-11-25 07:43 | Outpatient (CLI) | payer OTHER, SELFPAY ==
[2020-11-19 14:08] VITALS: BMI 41.7
--- NOTE | 2020-11-25 07:45 | CT_ITS ---
STUDY: CT ABDOMEN WITH CONTRAST REASON FOR EXAM: Female, 40 years old. Subcutaneous mass of periumbilical area RADIATION DOSAGE (If Supplied By Facility): CTDIvol = ( 16.29 ) mGy, DLP = ( 798.83 ) mGycm TECHNIQUE: Transaxial images were obtained post I.V. administration of IV 100mL Isovue-300, and with oral contrast. Sagittal and coronal images were reconstructed. Individualized dose optimization techniques were used for this CT. COMPARISON: Comparison is made with prior study dated 03/06/2020. FINDINGS: The visualized lung bases are unremarkable. The visualized portions of the heart are within normal limits. Normal liver. The patient is status post cholecystectomy. Normal spleen. Normal pancreas. Normal bilateral adrenal glands. Normal right kidney. Normal left kidney. Normal visualized stomach. Normal small intestine. Normal colon. The appendix is visualized and appears normal. Normal abdominal aorta. Normal inferior vena cava. There is borderline retroperitoneal lymphadenopathy with enlarged nodes no greater than 10mm in the short axis diameter. The previously seen soft tissue density in the subcutaneous fat overlying the right anterior abdominal wall just lateral to the umbilicus has increased in size. It presently measures 2.6 cm by 2.5 cm. Normal osseous structures. CT/Abdomen WITH IV Contrast IMPRESSION: Increase in size of the subcutaneous nodular mass overlying the right side of the abdomen just lateral to the umbilicus. It presently measures 2.6 cm x 2.5 cm. Electronically Signed: Ayaan Katz MD at 8:36 EST , Service support ,
== END ==
PROVIDERS: PCP Family Medicine; Referring Provider Surgery; Visit Provider Surgery
DX: R22.2 Localized swelling, mass and lump, trunk (principal)
CPT/HCPCS: 74160; Q9967

== ENCOUNTER → 2020-12-03 16:50 | Outpatient (CLI) | payer OTHER, SELFPAY ==
--- NOTE | 2020-12-03 13:20 | SOF_PTH ---
PATIENT: FLAVIO GUTIERREZ LOC: [facility] U#:[id number] AGE/SX: 45/F ROOM: RE12/03/[address]: Dr. Héctor Lopes MD : 1980 BED: DIS: SPEC #: [id number] RECD: 12/03/20 16:47 STATUS: KAYA CANDE #: [id number] UDAY: 12/03/20 13:[address]: Héctor Lopes DEPT: SURGICAL PATHOLOGY RECD BY: Carin Yadav ENTERED: 12/04/20 08:06 SP TYPE: SOFT TISS OTHR DR: Dr. Alize Narayanan, DO Tissues: Abdomen, NOS Procedures: Surgery Specimen Level IV HEADER OPERATION: Biopsy of abdominal mass PRE-OP DIAGNOSIS: Right abdominal mass TISSUE SUBMITTED: Right abdominal mass MICROSCOPIC DIAGNOSIS Right abdominal mass, core biopsy: Endometriosis. SJ:romeo 12/05/2020 MICROSCOPIC DESCRIPTION Slides are reviewed. GROSS DESCRIPTION Received in fixative is one container labeled with the patient's name and designated right abdominal mass. The specimen consists of multiple irregular fragments of [place] soft tissue that in aggregate measure 2.5 x 0.3 x 0.1 cm. The specimen is totally submitted in one cassette. / SJ:romeo 12/04/2020 TC:5 CPT: 71915
== END ==
PROVIDERS: PCP Family Medicine; Referring Provider Surgery; Visit Provider Surgery
DX: R19.00 Intra-abdominal and pelvic swelling, mass and lump, unspecified site (principal)
CPT/HCPCS: 88305

== ENCOUNTER 2020-12-24 10:48 | Day surgery (SDC) | payer OTHER, SELFPAY ==
--- NOTE | 2020-12-24 | EMB_PTH ---
PATIENT: FLAVIO GUTIERREZ LOC: [facility] – [place], [place] U#:[id number] AGE/SX: 40/F ROOM: RE12/24/[address]: Dr. Héctor Lopes MD : 1980 BED: DIS: 12/24/2020 SPEC #: [id number] RECD: 12/24/20 12:29 STATUS: KAYA REChinmay #: [id number] UDAY: 12/24/20 00:[address]: Héctor Lopes DEPT: SURGICAL PATHOLOGY RECD BY: Carin Yadav ENTERED: 12/24/20 13:52 SP TYPE: ENDOM BX/C BAILEE DR: Dr. Alize Narayanan DO Tissues: Endometrium, NOS Procedures: Surgery Specimen Level V HEADER OPERATION: Excision of endometrioma, mid abdomen PRE-OP DIAGNOSIS: Endometrioma TISSUE SUBMITTED: Mid abdomen MICROSCOPIC DIAGNOSIS Endometrioma, mid abdomen, excisional biopsy: Endometrioma. Resection margins are free of lesion. SJ:romeo 12/26/2020 COMMENT Please make reference to previous specimen [id number], right abdominal mass, core biopsy with diagnosis of endometriosis. MICROSCOPIC DESCRIPTION Slides are reviewed. GROSS DESCRIPTION Received fresh for intraoperative consultation labeled with the patient's name is a specimen designated endometrioma mid abdomen. The specimen consists of a piece of fibroadipose tissue measuring 5.5 x 6 x 4 cm. The specimen is oriented as follows: short suture - superior, long suture - lateral, single suture - anterior. The specimen is inked as follows: anterior - yellow, posterior - black, superior - blue, inferior - green, medial - red and lateral - orange. Serial sections reveal a hemorrhagic firm mass measuring 3.5 x 2.5 x 2.5 cm. This mass is 0.5 cm away from the closest superior and posterior margins. This information is conveyed to the surgeon intraoperatively. Lye Machine Operator sections are submitted in five cassettes as follows: 1 - perpendicular medial, lateral, inferior and anterior margin, 2 - mass with closest posterior margin, 3-5 - mass with closest superior margin. / FAVIO:romeo 12/25/20 TC:5 CPT: 54373, 45297
[2020-12-24 11:12] VITALS: BP 126/76; PULSE 93; RESP 18; TEMP 36.9; O2SAT 99; BMI 42.4
[2020-12-24] MEDS: Lactated Ringers 1,000 ML 100 ML IV (11:17)
--- NOTE | 2020-12-24 11:28 | HP.PCM_ITS ---
Problem List (1) Endometrioma Status: Acute History and Physical Date of Admission: 12/24/20 Intake Intake Visit Reasons: POST OP BIOPSY , DISCUSS RESULTS Chief Complaint: post biopsy abd mass Tobacco Checkout Clerk Required: No Is patient in pain?: No Allergies iodine Allergy (Verified 12/10/20 13:18) Unknown shellfish Allergy (Uncoded 11/19/20 14:09) Swelling Is last menstrual period known: No Post menopausal: No Patient : No PFSH Medical History (Updated 12/10/20 @ 13:[address] Héctor Lopes MD) Endometrioma (Acute) Subcutaneous mass of abdominal wall (Acute) Menorrhagia (Acute) Endometrial thickening on ultrasound (Acute) Asthma (Acute) Surgical History (Updated 12/10/20 @ 13:17 by Amber Guzman) S/P hysterectomy (Acute) S/P laparoscopic cholecystectomy (Acute) hisory of biopsy abd mass (Acute) Social History (Updated 12/10/20 @ 13:[address] Héctor Lopes MD) Smoking Status: Never smoker alcohol intake: current alcohol intake frequency: a few times a month HPI HPI HPI: FLAVIO GUTIERREZ, is a 40 F who presents to the office today for follow-up of her December 03 ultrasound-guided needle core biopsy right mid abdomen subcutaneous mass. Final pathology:Right abdominal mass, core biopsy:Endometriosis November 02, 2018 the patient had a robotic hysterectomy per Dr. Alicja Grajeda. Ovaries remain in place. Pathology is as follows. Uterus, hysterectomy:Cervix ?focal acute inflammation, mild chronic inflammation and squamous metaplasia.Endometrial polyps ?benign endometrial polyp with mixed secretoryand focal simple hyperplasia without atypia. [place] endometrium - secretory change.Myometrium ?hyalinized leiomyoma with microcalcifications and extensive adenomyosis.Right fallopian tube ?no pathologic change.Left fallopian tube ?benign paratubal cysts [facility] [address] [place] [address] Abdomen WITH IV Contrast MR#: [id number]:[id number] Name: FLAVIO GUTIERREZ [facility] #:[id number] : 1980F 40 From: Ayaan Katz MD PCP:Dr. Alize Narayanan, DO Status:REG CLI Study:Abdomen WITH IV Contrast Date of Exam:11/25/20 Exam#[id number] Ordering Dr: Héctor Lopes MD STUDY: CT ABDOMEN WITH CONTRAST REASON FOR EXAM: Female, 40 years old. Subcutaneous mass of periumbilical area RADIATION DOSAGE (If Supplied By Facility): CTDIvol = ( 16.29 ) mGy, DLP = ( 798.83 ) mGycm TECHNIQUE: Transaxial images were obtained post I.V. administration of IV 100mL Isovue-300, and with oral contrast. Sagittal and coronal images were reconstructed. Individualized dose optimization techniques were used for this CT. COMPARISON: Comparison is made with prior study dated 03/06/2020. FINDINGS: The visualized lung bases are unremarkable. The visualized portions of the heart are within normal limits. Normal liver. The patient is status post cholecystectomy. Normal spleen. Normal pancreas. Normal bilateral adrenal glands. Normal right kidney. Normal left kidney. Normal visualized stomach. Normal small intestine. Normal colon. The appendix is visualized and appears normal. Normal abdominal aorta. Normal inferior vena cava. There is borderline retroperitoneal lymphadenopathy with enlarged nodes no greater than 10mm in the short axis diameter. The previously seen soft tissue density in the subcutaneous fat overlying the right anterior abdominal wall just lateral to the umbilicus has increased in size. It presently measures 2.6 cm by 2.5 cm. Normal osseous structures. CT/Abdomen WITH IV Contrast IMPRESSION: Increase in size of the subcutaneous nodular mass overlying the right side of the abdomen just lateral to the umbilicus. It presently measures 2.6 cm x 2.5 cm. Electronically Signed: Ayaan Katz MD at 8:36 EST , Service support , HPI HPI HPI: FLAVIO GUTIERREZ, is a 40 F who presents to the office today for Exam Const General: cooperative, healthy appearing, comfortable, no acute distress Nutritional Appearance: overweight HENMT Head: normal to inspection Eyes General: appearance normal, both eyes and all related structures Resp Effort & Inspection: normal respiratory effort Auscultation: clear to auscultation bilaterally Cardio Rate: regular rate Rhythm: regular rhythm GI Palpation: soft, no hepatosplenomegaly Other: Somewhat firm deeply placed right mid abdomen subcutaneous mass. Healing biopsy puncture site Musc Cervical Spine: normal cervical lordosis Neuro Cognition: normal cognition Extrem General: no calf tenderness Psych Affect: normal affect Assessment & Plan Problems 1. Endometrioma N80.9 Plan Endometrioma right mid abdomen. I propose for her a complete excision of this area as most definitive treatment method. She is aware of technique, benefit, risk, alternatives. I will confer with her current COMPUTER FORENSICS INVESTIGATOR Dr.Christina Louise regarding his treatment plan. I appreciate the ongoing opportunity of assisting with her surgical care. Copy: Dr. Alize Narayanan and Dr.Christina Dani Lopes M.D., F.A.C.S. Coding Level of Care Code Off vis,est,level 2 Diagnoses Endometrioma N80.9 I have re-examined the patient. There are no clinical changes since date of exam. Procedure Criteria Procedure Type: Elective COVID Risk Discussion: The surgeon/proceduralist and patient have discussed in detail the risk of exposure to and/or potential harm posed by the COVID-19 virus with having a surgery/procedure at this time versus the risk of delaying the surgery/procedure. It is not possible to know either the risk of delaying the surgery or procedure or chance of getting an infection with perfect accuracy, but a joint decision was made between the patient and the surgeon/proceduralist to proceed at this time with the scheduled surgery/procedure as indicated on the consent form.
--- NOTE | 2020-12-24 11:29 | DCINST_ITS ---
Discharge Diet: Light diet - advance as tolerated - if you have questions about your diet instructions, please talk to you doctor. Discharge Activity: May Not Drive - for 1 week or while taking narcotic pain medicine. May shower in (days): 1 Lifting Restrictions: 10 pounds Call your doctor if your incision/area has: Continuous Slow Oozing, Sudden Increased Bleeding, Increased Pain/ Swelling, Increased Redness, Foul Smelling Discharge Call your doctor if you observe: Fever of 101 or Higher Suture Line Care: Avoid Pulling/Pushing, Avoid Pinching/Bending Additional Dressing/Incision Instructions:: Change or remove dressing in 4 days. Leave steri-strips in place for 1 week. Allergies/Adverse Reactions: Allergies iodine Allergy (Verified 12/24/20 11:11) Hives shellfish Allergy (Uncoded 12/24/20 11:11) Swelling Medications to take at Discharge Albuterol Inhaler [Ventolin Hfa (SP)] 1 - 2 puff INHALATION Q4H PRN PRN 10/26/18 Ibuprofen [Motrin] 800 mg PO TID PRN PRN #60 tab 11/03/18 Aspirin [Aspirin, Baby] 81 mg PO DAILY@0800 12/18/20 B5/B6/PABA/Cordy/Rhodi/Ginseng [Adrenal Essence Capsule] 1 each PO DAILY 12/18/20 Iron Carbonyl [Feosol] 45 mg PO DAILYCM 12/18/20 Montelukast [Singulair] 10 mg PO DAILY 12/18/20 Multivitamin with Minerals [Multiple Vitamin] 1 each PO DAILY 12/18/20 Primary Care Physician: Alize Narayanan DO [Primary Care Provider] - Test Results: Test results from this visit will be discussed in further detail at your follow- up appointment, if applicable. Please Follow Up With: Héctor Lopes MD - [phone] When: Call to make an appointment to be seen in about 10 days.
[2020-12-24] MEDS: Bupivacaine Mpf 0.5% 30 ML VIAL (12:37)
[2020-12-24] MEDS: Lidocaine 1% (30 ml sdv) 30 ML Vial (12:37)
--- NOTE | 2020-12-24 12:40 | PCM.OPRPT ---
Problem List (1) Endometrioma Status: Acute Report of Operation Date of Procedure: 12/24/20 Pre-Operative Diagnosis: Endometrioma right mid abdomen Post-Operative Diagnosis: Same Surgery/Procedure Performed:: Excision 3 cm endometrioma right mid abdomen Description of Surgical Findings:: Timeout and informed consent was obtained. 40-year-old female was taken to the operating room placed upon the table the right mid abdomen was sterilely prepped and draped. A transverse elliptical excision of the previous port site skin scar was performed. This was lengthened to a degree. Total skin length incision approximately 4 cm. Tedious sharp dissection electrocautery dissection was formed down into the subcutaneous tissues. Dissection performed circumferentially around the palpable mass. The dissection formed down to the rectus fascia but did not penetrate the rectus fascia. The specimen was carefully and tediously completely circumferentially excised. A silk short suture was placed superiorly and a long suture laterally and a single suture anteriorly. The specimen was sent to pathology where gross analysis suggested complete excision. The cavity was made hemostatic with electrocautery. The subcutaneous tissue was approximated with a simple suture of 3-0 Vicryl. Subdermal tissues approximated with interrupted 3-0 Vicryl. Skin edges approximated a running septic or 4-0 Monocryl. Steri-Strips Telfa OpSite were applied followed by a pressure dressing. The periincisional areas anesthetized with 1% lidocaine mixed 50-50 with 0.5% Marcaine and a total of 60 cc was used. Sponge and instrument and needle counts were reported the surgeon to be correct. Specimen skin scar was inspected and discarded. Subcutaneous mass/endometrioma was submitted to pathology. Drains none. Blood loss 20 cc. The patient was taken to the recovery area in satisfactory condition without apparent complication Héctor Lopes M.D., F.A.C.S. Type of Anesthesia:: General Anesthesiologist: Amadou Blackmon
[2020-12-24 12:54] VITALS: BP 120/85; BP 126/76; PULSE 100; RESP 18; TEMP 36.6; O2SAT 97
[2020-12-24 13:00] VITALS: BP 126/76; BP 128/83; PULSE 93; RESP 18; O2SAT 93
[2020-12-24 13:15] VITALS: BP 126/76; BP 130/90; PULSE 92; RESP 18; TEMP 36.9; O2SAT 94
[2020-12-24 14:35] VITALS: BP 114/68; BP 126/76; PULSE 82; RESP 18; TEMP 36.2; O2SAT 94
== END 2020-12-24 14:38 | disposition home or self-care (01) ==
LOC: SDC 10:50 → AC 10:50
PROVIDERS: PCP Family Medicine; Referring Provider Surgery; Visit Provider Surgery
PROC: (CPT 58100; principal; 2020-12-24 12:35)
DX: N80.8 Other endometriosis (principal); R19.00 Intra-abdominal and pelvic swelling, mass and lump, unspecified site; Z90.49 Acquired absence of other specified parts of digestive tract; Z90.710 Acquired absence of both cervix and uterus
CPT/HCPCS: 00940; 58100; 87426; 88305; 88307; C9803; J7120; J2405

== ENCOUNTER 2022-07-30 13:53 | Emergency (ER) | payer OTHER, SELFPAY ==
[2022-07-30 13:55] VITALS: BP 153/113; PULSE 91; RESP 18; TEMP 36.8; O2SAT 99; BMI 42.6
[2022-07-30 14:05] VITALS: BP 158/94; PULSE 90; RESP 20; O2SAT 99
--- NOTE | 2022-07-30 14:36 | EDS_ITS ---
HPI History of Present Illness Chief Complaint: Back Informant: patient Onset/Context/Timing Onset: Days Context: Gradual Onset Current Severity: Mild Maximum Severity: Moderate Narrative Narrative: Patient presents with left-sided back pain. She states that pain was mild last 2 days but today brought her to tears. She complains of pain just inferior to the left scapula. She initially thought it was because of her asthma but has not noted shortness of breath or wheezing recently. Pain does seem to be worse with a deep breath but she does not feel short of breath. Pain is also worse with movement. PFSH PFS Medical History Asthma Endometrial thickening on ultrasound Endometrioma Menorrhagia Subcutaneous mass of abdominal wall Home Medications albuterol sulfate 90 mcg/actuation aerosol inhaler 1 - 2 puff inhalation Q4H PRN PRN Sob &/Or Wheezing 10/26/18 [History Last Taken Unknown] ibuprofen 800 mg tablet 800 mg PO TID PRN PRN Cramp #60 tabs 11/03/18 [Rx Last Taken Unknown] aspirin 81 mg chewable tablet 81 mg PO DAILY@0800 12/18/20 [History Last Taken Unknown] iron, carbonyl 45 mg tablet 45 mg PO DAILYCM 12/18/20 [History Last Taken Unkn own] montelukast 10 mg tablet 10 mg PO DAILY 12/18/20 [History Last Taken Unknown] multivitamin with minerals 1 each PO DAILY 12/18/20 [History Last Taken Unknown] vit B5 50 mg-B6 25 mg-PABA 25 vp-aferxgdlc-kbsoktew-P.ginseng capsule 1 each PO DAILY 12/18/20 [History Last Taken Unknown] cyclobenzaprine 10 mg tablet 10 mg PO BID PRN muscle spasm #10 tabs 07/30/22 [Rx Last Taken Unknown] lidocaine 5 % topical patch (Lidoderm) 1 patch topical DAILY #15 ea 07/30/22 [Rx Last Taken Unknown] Allergy/AdvReac Type Severity Reaction Status Date / Time iodine Allergy Hives Verified 07/30/22 13:55 shellfish derived Allergy Anaphylaxis Verified 07/30/22 13:55 Surgical History hisory of biopsy abd mass S/P hysterectomy S/P laparoscopic cholecystectomy Social History Smoking Status: Never smoker alcohol intake: current alcohol intake frequency: a few times a month ROS ROS ED Constitutional Constitutional ED: Denies chills or fever(s) Eyes Eyes: Denies change in vision or discharge from eye(s) ENT ENT ED: Denies discharge from eye(s), rhinorrhea or sore throat Cardiovascular Cardiovascular: Denies chest pain or palpitations Respiratory/Chest Respiratory/Chest: Denies cough or dyspnea Gastrointestinal Gastrointestinal: Denies abdominal pain, diarrhea, nausea or vomiting Genitourinary Genitourinary ED: Denies dysuria Musculoskeletal Musculoskeletal: Reports back pain; Denies extremity pain Integumentary Denies Abrasions or rash Neurologic Neurologic: Denies headache(s) or weakness Allergic/Immunologic Allergic/Immunologic ED: Denies lip swelling or urticaria EXAM Physical Exam Const Vital Signs: 07/30/22 13:55 07/30/22 14:05 Temperature 98.2 F Temperature Source Temporal Pulse Rate 91 90 Respiratory Rate 18 20 H Blood Pressure 153/113 H 158/94 H Blood Pressure Mean 126 115 Pulse Ox 99 99 Oxygen Delivery Method Room Air Room Air Positive well nourished and well developed General Appearance ED: well developed HEENT Reports normocephalic and head/scalp atraumatic Eyes PERRL and EOMs intact bilaterally Neck supple Chest Wall inspection of chest normal and palpation of chest normal Resp normal respiratory effort and clear to auscultation bilaterally Cardio regular rate and regular rhythm GI normal to inspection, nondistended, normoactive bowel sounds Palpation: soft Back/Spine Back/Spine Narrative: Mild tenderness to the left thoracic paraspinal muscles and just inferior to the left scapula. Extremity normal to inspection Neuro oriented x3 and no sensory deficits noted Sensorium / Orientation: alert Motor Exam: strength 5/5 throughout Psych mental status grossly normal Skin no rashes or lesions noted MDM MDM MDM Narrative Medical decision making narrative: 2 view chest x-ray obtained along with lab work to include D-dimer. Lab Data Attestation: I reviewed the patient's lab results. Labs: Laboratory Results - last 24 hr 07/30/22 07/30/22 07/30/22 14:40 14:40 14:40 WBC 7.6 RBC 4.93 Hgb 14.3 Hct 42.9 MCV 87.0 MCH 29.0 MCHC 33.3 RDW Std Deviation 38.5 RDW Coeff of Juan 12.2 Plt Count 301 MPV 9.7 Immature Gran % (Auto) 0.100 Neut % (Auto) 63.9 Lymph % (Auto) 25.6 [place] % (Auto) 6.4 Eos % (Auto) 3.7 Baso % (Auto) 0.3 Absolute Neuts (auto) 4.9 Absolute Lymphs (auto) 1.95 Nucleated RBC % 0 D-Dimer Quant (PE/DVT) 0.36 Sodium 140 Potassium 3.6 Chloride 108 H Carbon Dioxide 26.0 Anion Gap 6 BUN 15 Creatinine 0.70 Estim Creat Clear Calc 85.72 Est GFR (MDRD) Af Amer 117 Est GFR (MDRD) Non-Af 97 BUN/Creatinine Ratio 21.4 H Glucose 95 Calcium 8.7 Radiography Diagnostic Testing: Clinical Impression(s) from Imaging Studies Chest X-Ray 07/30/22 14:45 IMPRESSION: Normal x-ray examination of the chest. Electronically Signed: Ayaan Katz MD at 15:10 EDT , Treatment and Re-Evaluation Narrative: Lab work is unremarkable with a normal D-dimer. Two-view chest x-ray per my interpretation reveals no acute findings. Radiology interpretation is reviewed and agrees. Patient is on Mobic chronically. She took Excedrin just prior to arrival. I will add a prescription for Flexeril and Lidoderm patches. Return instructions given. Discharge Plan Triage Chief Complaint: Back ED Provider: Elaine Watt Dx/Rx/DC Orders Clinical Impression: Back spasm Instructions: ED Back Spasm, No Trauma Prescriptions: New cyclobenzaprine 10 mg tablet 10 mg PO BID PRN (Reason: muscle spasm) Qty: 10 0RF lidocaine [Lidoderm] 5 % adhesive patch,medicated 1 patch topical DAILY Qty: 15 0RF Rx Instructions: leave on most painful area for up to 12 hrs No Action albuterol sulfate 1 INHALER inhaler 1 - 2 puff INHALATION Q4H PRN PRN (Reason: Sob &/Or Wheezing) ibuprofen 800 MG tablet 800 mg PO TID PRN PRN (Reason: Cramp) Qty: 60 1RF aspirin 81 MG tablet,chewable 81 mg PO DAILY@0800 montelukast 10 MG tablet 10 mg PO DAILY multivitamin with minerals 1 EACH tablet 1 each PO DAILY iron, carbonyl 45 MG capsule 45 mg PO DAILYCM [id number]-cord-rhod-P.ginseng 1 EACH capsule 1 each PO DAILY Primary Care Provider: Alize Narayanan Referrals: Alize Narayanan, [Primary Care Provider] - 1 Week if not improving Disposition Disposition: Home, Self Care
--- NOTE | 2022-07-30 14:45 | RAD_ITS ---
STUDY: X-RAY CHEST REASON FOR EXAM: Female, 42 years old. Left-sided chest pain. TECHNIQUE: PA and lateral views of the chest. COMPARISON: None. FINDINGS: The lungs are clear and expanded. There is no demonstrated pleural abnormality. Normal size heart. Normal mediastinum and dorita. Normal visualized pulmonary arteries. Normal visualized aortic arch and descending thoracic aorta. Normal visualized thoracic spine. Normal visualized ribs, clavicles, and shoulders. There is no demonstrated abnormality of the visualized soft tissue structures of the upper abdomen. RAD/Chest PA and Lateral IMPRESSION: Normal x-ray examination of the chest. Electronically Signed: Ayaan Katz MD at 15:10 EDT ,
[2022-07-30 14:48] LABS: Absolute Lymphocyte Count 1.95 X10^3/uL (0.83-4.51); Absolute Neutrophil Count 4.9 X10^3/uL (2.0-7.7); Basophil# 0.02 X10^3/uL; Basophil% 0.3 % (0-1); Eosinophil# 0.28 X10^3/uL; Eosinophils% 3.7 % (0-5); Hematocrit 42.9 % (37-47); Hemoglobin 14.3 g/dL (12.0-15.0); Lymphocyte # 1.95 X10^3/ul (0.83-4.51); Lymphocyte % 25.6 % (19-41); Mean Corp Hgb Conc 33.3 g/dL (32-36); Mean Platelet Vol. 9.7 fl (6.2-12.0); Monocyte# 0.49 X10^3/uL; Monocyte% 6.4 % (0-10); NRBC Flagged by Analyzer 0 % (0-5); Neutrophil # 4.87 X10^3/uL (2.7-7.7); Neutrophil % 63.9 % (47-70); Platelet Count 301 K/mm3 (150-450); RBC Distribution Width CV 12.2 % (11.6-14.6); RBC Distribution Width SD 38.5 fl (35.1-43.9); Red Blood Count 4.93 M/mm3 (4.2-5.4); White Blood Count 7.6 K/mm3 (4.4-11.0)
[2022-07-30 14:59] LABS: D-Dimer Quantitative (DVT/PE) 0.36 FEU/ug/m (0.27-0.49)
[2022-07-30 15:03] LABS: Anion Gap 6 (5-15); BUN 15 mg/dL (7-18); BUN/Creat Ratio 21.4 RATIO (10-20); Calcium,Total 8.7 mg/dL (8.5-10.1); Chloride 108 mmol/L (98-107); EST Glomerular Filtration Rate 97 mL/min (>60); Est Glom Filt Rate - Afr Amer 117 mL/min (>60); Estimated Creatinine Clearance 85.72 ml/min; Glucose 95 mg/dL (74-106); Potassium 3.6 mmol/L (3.5-5.1); Sodium Level 140 mmol/L (136-145)
[2022-07-30 15:25] VITALS: RESP 16
== END 2022-07-30 15:34 | disposition home or self-care (01) ==
PROVIDERS: Emergency Provider Emergency Medicine; PCP Family Medicine; Visit Provider Emergency Medicine
DX: R25.2 Cramp and spasm (principal); M54.9 Dorsalgia, unspecified; J45.909 Unspecified asthma, uncomplicated
CPT/HCPCS: 71046; 80048; 85025; 85379; 99283

== ENCOUNTER 2022-08-07 13:44 | Emergency (ER) | payer OTHER, SELFPAY ==
[2022-08-07 13:45] VITALS: BP 161/89; PULSE 104; RESP 16; TEMP 36.4; O2SAT 99; BMI 42.5
--- NOTE | 2022-08-07 14:15 | RAD_ITS ---
INDICATION: pain EXAMINATION/TECHNIQUE: X-RAY - LEFT XR Hand Min 3 Views 3 VIEWS COMPARISON: None. FINDINGS: SOFT TISSUES: No soft tissue swelling or gas. No radiopaque foreign body. BONES/JOINTS: Intra-articular nondisplaced fracture of the base of the proximal phalanx of the fifth finger.. Normal alignment. Preservation of the joint space.. No sclerotic or destructive changes observed. RAD/Hand Min 3 Views IMPRESSION: Fracture of the proximal phalanx of the fifth finger. Electronically Signed: Jamarcus Jon MD at 15:05 EDT ,
--- NOTE | 2022-08-07 14:15 | EDS_ITS ---
HPI History of Present Illness Chief Complaint: Upper Extremity Injury Narrative Narrative: 42-year-old female presenting after a mechanical fall. 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 She felt like her left pinky finger was dislocated and may be popped back into place. She also has pain in the third and fourth digits as well at the bases of them. No numbness or tingling. No lacerations or abrasions to the hand. She has no pain in the left wrist. She states she did hit her face slightly on the ground and has a internal lip laceration. She did not injure any teeth. No jaw pain. No LOC or symptoms of concussion. Patient is on any blood thinners. [facility] Medical History Asthma Endometrial thickening on ultrasound Endometrioma Menorrhagia Subcutaneous mass of abdominal wall Home Medications albuterol sulfate 90 mcg/actuation aerosol inhaler 1 - 2 puff inhalation Q4H PRN PRN Sob &/Or Wheezing 10/26/18 [History Last Taken Unknown] ibuprofen 800 mg tablet 800 mg PO TID PRN PRN Cramp #60 tabs 11/03/18 [Rx Last Taken Unknown] aspirin 81 mg chewable tablet 81 mg PO DAILY@0800 12/18/20 [History Last Taken Unknown] iron, carbonyl 45 mg tablet 45 mg PO DAILYCM 12/18/20 [History Last Taken Unknown] montelukast 10 mg tablet 10 mg PO DAILY 12/18/20 [History Last Taken Unknown] multivitamin with minerals 1 each PO DAILY 12/18/20 [History Last Taken Unknown] vit B5 50 mg-B6 25 mg-PABA 25 ij-gzcgpuwkl-sgcrcewf-P.ginseng capsule 1 each PO DAILY 12/18/20 [History Last Taken Unknown] cyclobenzaprine 10 mg tablet 10 mg PO BID PRN muscle spasm #10 tabs 07/30/22 [Rx Last Taken Unknown] lidocaine 5 % topical patch (Lidoderm) 1 patch topical DAILY #15 ea 07/30/22 [Rx Last Taken Unknown] hydrocodone-acetaminophen 5-325mg 5mg-325mg 1 tab PO Q6H PRN pain 3 days #10 tabs 08/07/22 [Rx Last Taken Unknown] Allergy/AdvReac Type Severity Reaction Status Date / Time iodine Allergy Hives Verified 08/07/22 13:45 shellfish derived Allergy Anaphylaxis Verified 08/07/22 13:45 Surgical History hisory of biopsy abd mass S/P hysterectomy S/P laparoscopic cholecystectomy Social History Smoking Status: Never smoker alcohol intake: current alcohol intake frequency: a few times a month ROS ROS ED Review of Systems ROS Unobtainable: Denies due to encephalopathy Constitutional Constitutional ED: Denies chills or fever(s) Eyes Eyes: Denies blurry vision or change in vision ENT ENT ED: Reports other Details: Internal lip laceration ; Denies rhinorrhea or sore throat Cardiovascular Cardiovascular: Denies chest pain or palpitations Respiratory/Chest Respiratory/Chest: Denies cough or dyspnea Gastrointestinal Gastrointestinal: Denies abdominal pain or constipation Genitourinary Genitourinary ED: Denies dysuria or hematuria Musculoskeletal Musculoskeletal: Denies back pain or myalgias Integumentary Denies abscess or Abrasions Neurologic Neurologic: Denies headache(s) Psychiatric Psychiatric: Denies anxiety or depression EXAM Physical Exam Const Vital Signs: 08/07/22 13:45 Temperature 97.5 F L Temperature Source Temporal Pulse Rate 104 H Respiratory Rate 16 Blood Pressure 161/89 H Blood Pressure Mean 113 Pulse Ox 99 Oxygen Delivery Method Room Air Positive well nourished General Appearance ED: NAD HEENT HEENT Narrative: No facial bone tenderness. No jaw malalignment. No nasal bone injury. No signs of basilar skull fracture. Superficial internal lip laceration of the lower lip. Dentition are intact normocephalic Eyes PERRL and EOMs intact bilaterally Neck full ROM General: Negative for tenderness Chest Wall inspection of chest normal and palpation of chest normal Resp normal respiratory effort and clear to auscultation bilaterally Auscultation: Negative for rales, rhonchi or wheezes Cardio regular rate and regular rhythm GI non-tender Extremity Extremity Narrative: Tenderness to palpation at the left fifth MCP. No obvious deformities. There is also some tenderness at the bases of the third and fourth digits on the left hand. No deformities are either. Left hand neurovascular intact brisk cap refill to all 5 fingers. Left wrist nontender. Neuro oriented x3 and CN's II-XII intact bilaterally Sensorium / Orientation: alert Psych mental status grossly normal Skin Skin Narrative: As described above MDM MDM MDM Narrative Medical decision making narrative: Patient presenting with left hand pain. She declines analgesia. She states that she thinks that she dislocated it and it relocated in the left fifth digit. There is some swelling here but does not look deformed. X-rays of the left hand on my interpretation show a fracture of the base of the fifth proximal phalanx with some intra-articular extension. The patient's internal lip lac eration can heal by secondary intention. I spoke with Dr. Landers who stated that the patient could go and a finger splint with John wrap but he would like to bernabe tape and follow-up. Patient was given Treadwell for pain if she needs this. She is discharged home in stable condition. Impression: 1. Mechanical fall 2. Interna lip laceration 3. Left proximal phalanx fracture Lab Data Attestation: I reviewed the patient's lab results. Discharge Plan Triage Chief Complaint: Upper Extremity Injury ED Provider: Oleksandr Tanner Dx/Rx/DC Orders Instructions: ED Fracture, Finger, Closed Prescriptions: New hydrocodone-acetaminophen 5-325 mg tablet 1 tab PO Q6H PRN (Reason: pain) 3 Days Qty: 10 0RF No Action albuterol sulfate 1 INHALER inhaler 1 - 2 puff INHALATION Q4H PRN PRN (Reason: Sob &/Or Wheezing) ibuprofen 800 MG tablet 800 mg PO TID PRN PRN (Reason: Cramp) Qty: 60 1RF aspirin 81 MG tablet,chewable 81 mg PO DAILY@0800 montelukast 10 MG tablet 10 mg PO DAILY multivitamin with minerals 1 EACH tablet 1 each PO DAILY iron, carbonyl 45 MG capsule 45 mg PO DAILYCM [id number]-cord-rhod-P.ginseng 1 EACH capsule 1 each PO DAILY cyclobenzaprine 10 mg tablet 10 mg PO BID PRN (Reason: muscle spasm) Qty: 10 0RF lidocaine [Lidoderm] 5 % adhesive patch,medicated 1 patch topical DAILY Qty: 15 0RF Rx Instructions: leave on most painful area for up to 12 hrs Primary Care Provider: Alize Narayanan Referrals: Alize Narayanan DO [Primary Care Provider] - Chuck Landers DO [Med Staff - Active Staff] - 3-5 Days Disposition Disposition: Home, Self Care
== END 2022-08-07 15:54 | disposition home or self-care (01) ==
PROVIDERS: Emergency Provider Student in an Organized Health Care Education/Training Program; PCP Family Medicine; Visit Provider Student in an Organized Health Care Education/Training Program
DX: S01.511A Laceration without foreign body of lip, initial encounter (principal); W19.XXXA Unspecified fall, initial encounter; M79.642 Pain in left hand; S62.617A Displaced fracture of proximal phalanx of left little finger, initial encounter for closed fracture; W01.0XXA Fall on same level from slipping, tripping and stumbling without subsequent striking against object, initial encounter; Y93.51 Activity, roller skating (inline) and skateboarding; J45.909 Unspecified asthma, uncomplicated
CPT/HCPCS: 73130; 99283

== ENCOUNTER 2022-11-01 08:00 | Outpatient (RCR) | payer OTHER, SELFPAY ==
--- NOTE | 2022-10-18 08:30 | HP.OTEVAL_ITS ---
Patient's Visit Information FLAVIO GUTIERREZ is a 42 year old F, referred to Occupational Therapy by Dr. Porfirio Barrientos DO, with a diagnosis of right CMC primary OA. Date of Evaluation: 10/15/22 Occupational Therapist: Charlene Gill, JUANJOSE/Bert, CHT - Subjective This 42 year old female was seen fot OT eval with dx of unilateral primary osteoarthrosis of first carpometacarpal joint. pt works as a dental hygienist and states her right thumb is painful most of the time. pt would like to know what she can do to support her hands and decrease pain. Pain does limit her with her ADLs and home mtg. - ADLs Kitchen: Open jars, Open bottle caps Household: Laundry Comments: pain with getting clothes out of washer - Pain right thumb 1 Pain Intensity Range: 0, 4 - ROM Wrist: right/left WNL CMC: right 10 left 5 MP: right 55 left 55 IP: right 55 left 70 Radial Abduction: right 40 left 45 Opposition: Kapandji opposition scale right 10 left 10 - Strength [employer] Reading Teacher: right 45# left 53# Lateral Pinch: right 4# left 6# Tripod Pinch: right 4# left 2# Strength Comments: pt demo with bilateral thumb instability with resistive pinch ( mp hyper ext with pinch) - Sensation Sensation Comments: denies - Quick DASH-Disab of Arm,Shoulder& Hand Quick DASH Score: 38.3325 - Goals Goal:: pt will demo a increase in right thumb stability notably with min to no MP hyper ext with resistive pinch with ADLS. Goal:: pt will demo decrease in pain of right thumb with pinch and grasping of objects to no greater than 2/10 by d.c Goal:: pt will demo understanding of joint protection andre. and ad. eq. use to prevent joint and ligament stress by end of 3rd session. - Rehabilitation General Assessment: pt demo with bilateral thumb instability right painful with use. pt would benefit from skilled OT services 2x week for 3-4 weeks to decrease pain increase thumb stability, ed, pt on joint protection and supportive bracing. pt demo understanding and agrees to POC. Rehabilitation Potential: Good - Anticipated Interventions Strengthening, Triggerpoint Release, Modalities, Orthoses, Joint Protection/Energy Conservation, Ergonomic Education, Education re assistive Equipment, Education re Diagnosis, Home Program - Visit Plan Frequency: 2x /Week Duration: 4 Weeks General Plan: continue with thumb stabilization ( avoiding MP hyper ext with ex) TEXT: Thank you for the opportunity to evaluate your patient. For Medicare and Medicare HMO plans, please review the plan of care and approve it. It will need to be FAXED BACK to us at [phone] for Medicare purposes. Please let me know if there are questions or concerns regarding this plan of care. Physician Signature: Date:
--- NOTE | 2022-11-01 14:12 | HP.OTDCSUM ---
It has been my pleasure to treat FLAVIO GUTIERREZ under orders from Dr. Porfirio Barrientos, DO, for the diagnosis of right CMC primary OA for a total of 5 visit(s). Please see the following information for a summary of their discharge status. % Improvement: 60 Objective/Function: Eval-Transportation Supervisor: right 45# left 53#. 11/01/22- right 65# left 56#. Eval-Lateral Pinch: right 4# left 6#. 11/01/22-right 11# left 12#. Eval-Tripod Pinch: right 4# left 2#. 11/01/22- right 10# left 13# Patient Goals: Decrease Pain, Use Hand/Wrist/Arm Normally Again, Be More Independent in ADLS Goal:: pt will demo a increase in right thumb stability notably with min to no MP hyper ext with resistive pinch with ADLS. Goal:: pt will demo decrease in pain of right thumb with pinch and grasping of objects to no greater than 2/10 by d.c Goal:: pt will demo understanding of joint protection andre. and ad. eq. use to prevent joint and ligament stress by end of 3rd session. Plan: Pt to be D/C. Doing well w/ HEP. Discharge Comments: pt was seen for 5 OT sessions for right cmc arthritis. Therapy ed. pt on joint protection andre. ad. eq. as well as bracing and thumb stabilization ex. pt demo understanding and agrees to D/c and she will cont with joint protection and bracing. If there are questions or concerns regarding this patient's occupational therapy, please fell free to call me at [phone]. Thank you for the referral of this patient. Sincerely, Charlene Gill, OTR/L, CHT
== END 2022-11-01 15:00 | disposition home or self-care (01) ==
LOC: OT 08:00
PROVIDERS: PCP Family Medicine; Referring Provider Orthopaedic Surgery; Visit Provider Orthopaedic Surgery
DX: M18.11 Unilateral primary osteoarthritis of first carpometacarpal joint, right hand (principal)
CPT/HCPCS: 97035; 97110; 97166; 97530

== ENCOUNTER → 2022-12-20 | Outpatient (CLI) | payer OTHER, SELFPAY ==
[2022-12-20 15:51] LABS: ALB/GLOB Ratio 0.9 RATIO (0.9-2.4); AST(SGOT) 27 U/L (15-37); Absolute Lymphocyte Count 1.49 X10^3/uL (0.83-4.51); Absolute Neutrophil Count 3.6 X10^3/uL (2.0-7.7); Alanine Aminotransfer ALT/SGPT 47 U/L (13-56); Albumin, Serum 3.5 g/dL (3.2-5.0); Alkaline Phosphatase 57 U/L (45-117); Anion Gap 8 (5-15); BUN 9 mg/dL (7-18); BUN/Creat Ratio 11.4 RATIO (10-20); Basophil# 0.02 X10^3/uL; Basophil% 0.3 % (0-1); Calcium,Total 8.4 mg/dL (8.5-10.1); Chloride 106 mmol/L (98-107); Cholesterol 137 mg/dL (200); Creatinine, Serum 0.79 mg/dL (0.55-1.02); EST Glomerular Filtration Rate 84 mL/min (>60); Eosinophil# 0.15 X10^3/uL; Eosinophils% 2.6 % (0-5); Est Glom Filt Rate - Afr Amer 101 mL/min (>60); Globulin 4.1 g/dL (2.2-4.2); Glucose 91 mg/dL (74-106); Hematocrit 46.4 % (37-47); Hemoglobin 14.7 g/dL (12.0-15.0); High Density Lipoprotein 44 mg/dL; Lymphocyte # 1.49 X10^3/ul (0.83-4.51); Lymphocyte % 25.7 % (19-41); Mean Corp Hgb Conc 31.7 g/dL (32-36); Mean Corpuscular Hgb 28.3 pg (27.0-32.0); Mean Corpuscular Volume 89.2 fL (81-99); Mean Platelet Vol. 10.3 fl (6.2-12.0); Monocyte# 0.49 X10^3/uL; Monocyte% 8.4 % (0-10); NRBC Flagged by Analyzer 0 % (0-5); Neutrophil # 3.63 X10^3/uL (2.7-7.7); Neutrophil % 62.7 % (47-70); Platelet Count 345 K/mm3 (150-450); Potassium 3.6 mmol/L (3.5-5.1); Protein, Total 7.6 g/dL (6.4-8.2); RBC Distribution Width CV 11.9 % (11.6-14.6); RBC Distribution Width SD 39.3 fl (35.1-43.9); Sodium Level 139 mmol/L (136-145); Triglycerides 72 mg/dL; Very Low Density Lipoprotein 14 mg/dL (5-40); White Blood Count 5.8 K/mm3 (4.4-11.0)
== END | disposition home or self-care (01) ==
LOC: BFHLAB 13:37
PROVIDERS: PCP Family Medicine; Referring Provider Family Medicine; Visit Provider Family Medicine
DX: E78.5 Hyperlipidemia, unspecified (principal); Z51.81 Encounter for therapeutic drug level monitoring
CPT/HCPCS: 36415; 80053; 80061; 85025

== ENCOUNTER 2023-03-17 13:41 | Emergency (ER) | payer OTHER, SELFPAY ==
[2023-03-17] VITALS (7 sets, daily range): BP systolic 114–178; BP diastolic 81–100; PULSE 85–113; RESP 16–27; TEMP 36.6; O2SAT 97–100; BMI 44.2
--- NOTE | 2023-03-17 13:56 | NURSING ---
NO OLD EKGS
--- NOTE | 2023-03-17 13:59 | EKG12_ITS ---
Test Reason : CP Blood Pressure : / mmHG Vent. Rate : 076 BPM Atrial Rate : 076 BPM P-R Int : 158 ms QRS Dur : 080 ms QT Int : 364 ms P-R-T Axes : 025 049 036 degrees QTc Int : 409 ms Sinus rhythm with marked sinus arrhythmia Otherwise normal ECG Confirmed by FIDELIA WOLFF, PERLITA ([id number]), manager editorial JUAN GAY ([id number]) on 03/21/2023 10:45:58 A M Referred By: LEANDRA Confirmed By:DARLIN MISTRY MD
--- NOTE | 2023-03-17 14:02 | ED.VIS.CHEST ---
HPI <Dr. Yonis Ruvalcaba MD - Last Filed: 03/24/23 09:52> History of Present Illness Chief Complaint: Chest Pain Detail of Chief Complaint: 3 episodes of chest tightness that lasted minutes with twinges of pain heather Informant: patient and spouse/S.O. 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 While at work yesterday while sitting she became lightheaded and dizzy . She denied headache, visual, ocular auditory symptoms. She denied shortness of breath or chest discomfort. She denied abdominal pain. She denies history of black or maroon-colored stool. She denies history of VTE. She has no risk factors for VTE. She denies leg pain, swelling or discoloration from baseline. She states she has chronic swelling. She had swelling for 15 years. No family history of cardiac disease before the age of 55. Patient does have history of hypertension. She apparently has not taken her medicine recently. She also has history of asthma. Prior Similar Symptoms: No Recent Illness/Hospitalization: No CVD Risk Factors: Positive for Hypertension; Negative for Diabetes, Hypercholesterolemia, Family History 1' </=55 or Smoking PE Risk Factors: Negative for Recent Travel/Surgery, Recent Immobilization, Prior DVT or PE, Cancer or OCP + Smoking + >/=35 TAD Risk Factors: Positive for Hypertension; Negative for Marfan's Syndrome or Family History PFSH <Dr. Yonis Ruvalcaba MD - Last Filed: 03/24/23 09:52> [facility] Medical History Asthma Endometrial thickening on ultrasound Endometrioma Menorrhagia Subcutaneous mass of abdominal wall Home Medications albuterol sulfate 90 mcg/actuation aerosol inhaler 1 - 2 puff inhalation Q4H PRN PRN Sob &/Or Wheezing 01/24/19 [History Last Taken Unknown] iron, carbonyl 45 mg tablet 45 mg PO DAILYCM 12/18/20 [History Last Taken Unknown] montelukast 10 mg tablet 10 mg PO DAILY 12/18/20 [History Last Taken Unknown] multivitamin with minerals 1 each PO DAILY 12/18/20 [History Last Taken Unknown] meloxicam 15 mg tablet 15 mg PO DAILY 12/07/22 [History Last Taken Unknown] losartan 50 mg-hydrochlorothiazide 12.5 mg tablet 1 tab PO DAILY 03/17/23 [History Last Taken Unknown] Allergy/AdvReac Type Severity Reaction Status Date / Time iodine Allergy Hives Verified 12/07/22 07:47 shellfish derived Allergy Anaphylaxis Verified 12/07/22 07:47 Surgical History hisory of biopsy abd mass S/P hysterectomy S/P laparoscopic cholecystectomy Social History (Updated 03/17/23 @ 14:[address] Yonis Ruvalcaba MD) household members: spouse Smoking Status: Never smoker alcohol intake: current alcohol intake frequency: a few times a month ROS <Dr. Yonis Ruvalcaba MD - Last Filed: 03/24/23 09:52> ROS ED Constitutional Constitutional ED: Denies chills, fever(s), subjective, sweats or weight loss Eyes Eyes: Reports none ENT ENT ED: Reports rhinorrhea and other Details: Symptoms are chronic due to allergies. ; Denies ear pain or sore throat Cardiovascular Cardiovascular: Reports as per HPI; Denies orthopnea or paroxysmal nocturnal dyspnea Respiratory/Chest Respiratory/Chest: Reports dyspnea; Denies cough, dyspnea on exertion, orthopnea or paroxysmal nocturnal dyspnea Gastrointestinal Gastrointestinal: Denies abdominal pain, constipation, melena, nausea or vomiting Genitourinary Genitourinary ED: Denies dysuria, hematuria or urinary frequency Musculoskeletal Musculoskeletal: Denies arthralgias, back pain, myalgias or neck pain Integumentary Denies rash Neurologic Neurologic: Denies headache(s), paresthesias or weakness Psychiatric Psychiatric: Denies anxiety Endocrine Endocrinology: Denies cold intolerance or heat intolerance Hematologic/Lymphatic Hematologic/Lymphatic: Denies easy bleeding or easy bruising EXAM <Dr. Yonis Ruvalcaba MD - Last Filed: 03/24/23 09:52> Physical Exam Const Vital Signs: 03/17/23 13:41 03/17/23 13:55 03/17/23 13:56 Temperature 97.8 F Temperature Source Temporal Pulse Rate 113 H 109 H Respiratory Rate 18 27 H Respiratory Effort Labored Blood Pressure 150/100 H Blood Pressure Mean 116 Pulse Ox 100 98 Oxygen Delivery Method Room Air Room Air 03/17/23 13:57 03/17/23 14:57 03/17/23 14:57 Temperature Temperature Source Pulse Rate 85 Respiratory Rate 16 Respiratory Effort Blood Pressure 178/98 H 119/86 H Blood Pressure Mean 124 97 Pulse Ox Oxygen Delivery Method Room Air 03/17/23 15:00 03/17/23 16:00 Temperature Temperature Source Pulse Rate 92 89 Respiratory Rate 17 17 Respiratory Effort Blood Pressure 114/81 H 121/85 H Blood Pressure Mean 92 97 Pulse Ox 99 97 Oxygen Delivery Method Room Air Room Air Positive well nourished, well developed and obese; Negative for cachectic General Appearance ED: well developed and NAD; Negative for cachectic or pallor Nutritional Appearance: obese; Negative for cachectic HEENT Reports TM's clear and moist mucous membranes normocephalic and atraumatic Tympanic Membrane ED: Yes TM's clear Eyes PERRL and EOMs intact bilaterally General Eye ED: Negative for pale conjunctiva or scleral icterus Neck no lymphadenopathy and no JVD Chest Wall inspection of chest normal and palpation of chest normal Resp normal respiratory effort and clear to auscultation bilaterally Cardio regular rhythm, S1 normal heart sound, S2 normal heart sound and no murmurs Rate: tachycardic Peripheral Pulses: pulses 2+ throughout GI normal to inspection, nondistended, normoactive bowel sounds, soft to palpation, non-tender and non-distended; Negative for hepatosplenomegaly or no masses Back/Spine no CVA tenderness and no thoracic nor lumbar tenderness Extremity normal to inspection Extremity Narrative: There is no asymmetry, swelling, discoloration, leg vein distention, palpable cords or tenderness along the distribution of the deep venous system. General Extremety ED: Negative for edema or pulses abnormal General Extremity: Negative for edema or pulses abnormal Neuro oriented x3, CN's II-XII intact bilaterally and no sensory deficits noted Sensorium / Orientation: awake and alert Psych mental status grossly normal Skin no rashes or lesions noted and no wounds General Skin Exam: Negative for jaundice or pallor <Dr. Demario Palomares MD - Last Filed: 03/17/23 16:49> Physical Exam Const Vital Signs: 03/17/23 13:41 03/17/23 13:55 03/17/23 13:56 Temperature 97.8 F Temperature Source Temporal Pulse Rate 113 H 109 H Respiratory Rate 18 27 H Respiratory Effort Labored Blood Pressure 150/100 H Blood Pressure Mean 116 Pulse Ox 100 98 Oxygen Delivery Method Room Air Room Air 03/17/23 13:57 03/17/23 14:57 03/17/23 14:57 Temperature Temperature Source Pulse Rate 85 Respiratory Rate 16 Respiratory Effort Blood Pressure 178/98 H 119/86 H Blood Pressure Mean 124 97 Pulse Ox Oxygen Delivery Method Room Air 03/17/23 15:00 03/17/23 16:00 Temperature Temperature Source Pulse Rate 92 89 Respiratory Rate 17 17 Respiratory Effort Blood Pressure 114/81 H 121/85 H Blood Pressure Mean 92 97 Pulse Ox 99 97 Oxygen Delivery Method Room Air Room Air MDM <Dr. Yonis Ruvalcaba MD - Last Filed: 03/24/23 09:52> [facility] Narrative Medical decision making narrative: Patient presents with chest pain this may present cardiac versus noncardiac. Noncardiac would include esophageal spasm, reflux, peptic ulcer disease. This may also represent atypical presentation for her asthma. Since she is tachycardic she is not PERC negative therefore will obtain a D-dimer. History & Record Review Additional record(s) reviewed:: Prior outpatient record (Gynecologic visits and surgery for endometrioma), Prior ED visit (No significant visits.) and Prior labs Lab Data Attestation: I reviewed the patient's lab results. Lab results narrative: CBC is normal. Basic metabolic panel reveals slight elevation of glucose, 111. D-dimer is normal at 0.27. First troponin is normal at 4. 2-hour troponin is pending. Labs: Laboratory Results - last 24 hr 03/17/23 03/17/23 03/17/23 13:55 13:55 13:55 WBC 8.3 RBC 5.11 Hgb 14.6 Hct 44.5 MCV 87.1 MCH 28.6 MCHC 32.8 RDW Std Deviation 38.3 RDW Coeff of Juan 12.0 Plt Count 302 MPV 9.9 Immature Gran % (Auto) 0.400 Neut % (Auto) 65.5 Lymph % (Auto) 24.8 [place] % (Auto) 5.4 Eos % (Auto) 3.5 Baso % (Auto) 0.4 Absolute Neuts (auto) 5.4 Absolute Lymphs (auto) 2.05 Nucleated RBC % 0 D-Dimer Quant (PE/DVT) 0.27 Sodium 137 Potassium 3.6 Chloride 104 Carbon Dioxide 29.0 Anion Gap 4 L BUN 11 Creatinine 0.82 Estim Creat Clear Calc 72.42 Est GFR (MDRD) Af Amer 98 Est GFR (MDRD) Non-Af 81 BUN/Creatinine Ratio 13.4 Glucose 111 H Calcium 9.1 Troponin I High Sens 4 03/17/23 15:58 WBC RBC Hgb Hct MCV MCH MCHC RDW Std Deviation RDW Coeff of Juan Plt Count MPV Immature Gran % (Auto) Neut % (Auto) Lymph % (Auto) [place] % (Auto) Eos % (Auto) Baso % (Auto) Absolute Neuts (auto) Absolute Lymphs (auto) Nucleated RBC % D-Dimer Quant (PE/DVT) Sodium Potassium Chloride Carbon Dioxide Anion Gap BUN Creatinine Estim Creat Clear Calc Est GFR (MDRD) Af Amer Est GFR (MDRD) Non-Af BUN/Creatinine Ratio Glucose Calcium Troponin I High Sens 4 Radiography Chest X-Ray - ED: 1 View and Read by ED Physician (Single view portable chest x-ray was independent reviewed interpreted by me at 1427 as unremarkable for any acute pathology. Chest x-ray revealed normal cardiac silhouette and size. Perihilar region normal. Lung parenchyma normal. Osseous structures are normal.) Diagnostic Testing: Clinical Impression(s) from Imaging Studies Chest X-Ray 03/17/23 14:10 IMPRESSION: Normal x-ray examination of the chest. Electronically Signed: Ayaan Katz MD at 14:50 EDT , <Dr. Demario Palomares MD - Last Filed: 03/17/23 16:49> [facility] Narrative Medical decision making narrative: Patient presents with chest pain this may present cardiac versus noncardiac. Noncardiac would include esophageal spasm, reflux, peptic ulcer disease. This may also represent atypical presentation for her asthma. Since she is tachycardic she is not PERC negative therefore will obtain a D-dimer. Turned over to me pending repeat troponin. Her second troponin was unchanged. I checked with the patient. She is asymptomatic now. I looked at her other results. Her D-dimer was also negative. She is very comfortable going home. She states all her questions were really answered. Lab Data Labs: Laboratory Results - last 24 hr 03/17/23 03/17/23 03/17/23 13:55 13:55 13:55 WBC 8.3 RBC 5.11 Hgb 14.6 Hct 44.5 MCV 87.1 MCH 28.6 MCHC 32.8 RDW Std Deviation 38.3 RDW Coeff of Juan 12.0 Plt Count 302 MPV 9.9 Immature Gran % (Auto) 0.400 Neut % (Auto) 65.5 Lymph % (Auto) 24.8 [place] % (Auto) 5.4 Eos % (Auto) 3.5 Baso % (Auto) 0.4 Absolute Neuts (auto) 5.4 Absolute Lymphs (auto) 2.05 Nucleated RBC % 0 D-Dimer Quant (PE/DVT) 0.27 Sodium 137 Potassium 3.6 Chloride 104 Carbon Dioxide 29.0 Anion Gap 4 L BUN 11 Creatinine 0.82 Estim Creat Clear Calc 72.42 Est GFR (MDRD) Af Amer 98 Est GFR (MDRD) Non-Af 81 BUN/Creatinine Ratio 13.4 Glucose 111 H Calcium 9.1 Troponin I High Sens 4 03/17/23 15:58 WBC RBC Hgb Hct MCV MCH MCHC RDW Std Deviation RDW Coeff of Juan Plt Count MPV Immature Gran % (Auto) Neut % (Auto) Lymph % (Auto) [place] % (Auto) Eos % (Auto) Baso % (Auto) Absolute Neuts (auto) Absolute Lymphs (auto) Nucleated RBC % D-Dimer Quant (PE/DVT) Sodium Potassium Chloride Carbon Dioxide Anion Gap BUN Creatinine Estim Creat Clear Calc Est GFR (MDRD) Af Amer Est GFR (MDRD) Non-Af BUN/Creatinine Ratio Glucose Calcium Troponin I High Sens 4 Radiography Diagnostic Testing: Clinical Impression(s) from Imaging Studies Chest X-Ray 03/17/23 14:10 IMPRESSION: Normal x-ray examination of the chest. Electronically Signed: Ayaan Katz MD at 14:50 EDT , Discharge Plan Triage Chief Complaint: Chest Pain Other Complaint: Shortness of Breath ED Provider: Demario Palomares Dx/Rx/DC Orders Clinical Impression: Chest pain Instructions: ED Chest Pain, Uncertain Cause Prescriptions: No Action meloxicam 15 mg tablet 15 mg PO DAILY albuterol sulfate 1 INHALER inhaler 1 - 2 puff INHALATION Q4H PRN PRN (Reason: Sob &/Or Wheezing) montelukast 10 MG tablet 10 mg PO DAILY multivitamin with minerals 1 EACH tablet 1 each PO DAILY iron, carbonyl 45 MG capsule 45 mg PO DAILYCM losartan-hydrochlorothiazide 50-12.5 mg tablet 1 tab PO DAILY Label Comments: TAKE 1 TABLET BY MOUTH EVERY DAY Primary Care Provider: Alize Narayanan Referrals: Alize Narayanan DO [Primary Care Provider] - 3-5 Days Disposition Disposition: Home, Self Care Discharge Date/Time: 03/17/23 16:55
[2023-03-17] MEDS: Aspirin 81 MG TAB.CHEW 324 MG PO (14:09)
--- NOTE | 2023-03-17 14:10 | RAD_ITS ---
STUDY: X-RAY CHEST REASON FOR EXAM: Female, 43 years old. Chest pain TECHNIQUE: Single AP portable view of the chest. COMPARISON: Comparison is made with prior study July 22, 2022. FINDINGS: EKG electrodes are seen. The lungs are clear and expanded. There is no demonstrated pleural abnormality. Normal size heart. Normal mediastinum and dorita. Normal visualized pulmonary arteries. Normal visualized aortic arch and descending thoracic aorta. Normal visualized thoracic spine. Normal visualized ribs, clavicles, and shoulders. There is no demonstrated abnormality of the visualized soft tissue structures of the upper abdomen. RAD/Chest 1 View (Portable) IMPRESSION: Normal x-ray examination of the chest. Electronically Signed: Ayaan Katz MD at 14:50 EDT ,
[2023-03-17 14:11] LABS: Absolute Lymphocyte Count 2.05 X10^3/uL (0.83-4.51); Absolute Neutrophil Count 5.4 X10^3/uL (2.0-7.7); Basophil# 0.03 X10^3/uL; Basophil% 0.4 % (0-1); Eosinophil# 0.29 X10^3/uL; Eosinophils% 3.5 % (0-5); Hematocrit 44.5 % (37-47); Hemoglobin 14.6 g/dL (12.0-15.0); Lymphocyte # 2.05 X10^3/ul (0.83-4.51); Lymphocyte % 24.8 % (19-41); Mean Corp Hgb Conc 32.8 g/dL (32-36); Mean Corpuscular Hgb 28.6 pg (27.0-32.0); Mean Corpuscular Volume 87.1 fL (81-99); Mean Platelet Vol. 9.9 fl (6.2-12.0); Monocyte# 0.45 X10^3/uL; Monocyte% 5.4 % (0-10); NRBC Flagged by Analyzer 0 % (0-5); Neutrophil # 5.42 X10^3/uL (2.7-7.7); Neutrophil % 65.5 % (47-70); Platelet Count 302 K/mm3 (150-450); RBC Distribution Width SD 38.3 fl (35.1-43.9); Red Blood Count 5.11 M/mm3 (4.2-5.4); White Blood Count 8.3 K/mm3 (4.4-11.0)
[2023-03-17 14:25] LABS: D-Dimer Quantitative (DVT/PE) 0.27 FEU/ug/m (0.27-0.49)
[2023-03-17 14:26] LABS: Anion Gap 4 (5-15); BUN 11 mg/dL (7-18); BUN/Creat Ratio 13.4 RATIO (10-20); Calcium,Total 9.1 mg/dL (8.5-10.1); Chloride 104 mmol/L (98-107); Creatinine, Serum 0.82 mg/dL (0.55-1.02); EST Glomerular Filtration Rate 81 mL/min (>60); Est Glom Filt Rate - Afr Amer 98 mL/min (>60); Estimated Creatinine Clearance 72.42 ml/min; Glucose 111 mg/dL (74-106); Potassium 3.6 mmol/L (3.5-5.1); Sodium Level 137 mmol/L (136-145); Troponin-I HS (w/2H Reflex) 4 pg/mL (3.0-54.0)
[2023-03-17 16:06] LABS: Reflex Troponin-HS? (from REC) Y
[2023-03-17 16:30] LABS: Troponin-I HS 4 pg/mL (3.0-54.0)
== END 2023-03-17 16:55 | disposition home or self-care (01) ==
PROVIDERS: Emergency Medicine; Emergency Provider Emergency Medicine; PCP Family Medicine; Visit Provider Emergency Medicine
DX: R07.9 Chest pain, unspecified (principal); I10 Essential (primary) hypertension; J45.909 Unspecified asthma, uncomplicated; Z79.899 Other long term (current) drug therapy; Z90.710 Acquired absence of both cervix and uterus; Z90.49 Acquired absence of other specified parts of digestive tract
CPT/HCPCS: 71045; 80048; 84484; 85025; 85379; 93005; 99285; A4216

== ENCOUNTER → 2023-05-18 | Outpatient (CLI) | payer OTHER, SELFPAY ==
--- NOTE | 2023-05-18 06:48 | MRI_ITS ---
HISTORY: R HEARING LOSS TECHNIQUE: Multiplanar and multisequence MR images of the brain were obtained before and after the intravenous administration of 23 cc Clariscan. 428 images. COMPARISON: None. FINDINGS: BRAIN PARENCHYMA: No significant signal abnormality in the brain. No enhancing mass. No abnormal focus of restricted diffusion identified to suggest acute infarct. No acute intracranial hemorrhage identified. INTERNAL AUDITORY CANALS: No cerebellopontine angle mass. Symmetric appearance of the fifth, seventh, and 8th cranial nerve complexes without enhancing lesion of the internal auditory canal. CSF SPACES: Cerebral ventricles, cortical sulci, and other extra-axial CSF spaces within normal limits in size. No significant midline shift or other mass effect. No extra-axial fluid collection. SELLAR/SUPRASELLAR REGION: Unremarkable pituitary gland. No suprasellar mass. VASCULAR SYSTEM: Major intracranial flow voids are maintained. ORBITS: Symmetric orbital contents. OTHER: Mild mucosal thickening in the right maxillary sinus and posterior ethmoid. Clear mastoid air cells. MRI/Brain W/WO Contrast IMPRESSION: Unremarkable examination of the internal auditory canals. No evidence for enhancing lesion. No evidence for significant signal abnormality in the brain or enhancing intracranial mass. Electronically Signed: Mirella Banres MD at 9:16 EDT ,
[2023-05-18 07:12] LABS: CREATININE FINGERSTICK < 0.9 mg/dL (0.55-1.02); EGFR FINGERSTICK > 60.0000 mL/min (>60)
== END | disposition home or self-care (01) ==
PROVIDERS: PCP Family Medicine; Referring Provider Otolaryngology; Visit Provider Otolaryngology
DX: H91.91 Unspecified hearing loss, right ear (principal)
CPT/HCPCS: 70553; A9575

== ENCOUNTER → 2023-10-12 | Outpatient (CLI) | payer OTHER, SELFPAY | END | disposition home or self-care (01) | LOC: SL 10:10 | PROVIDERS: PCP Family Medicine; Visit Provider Nurse Practitioner Family | DX: R06.83 Snoring (principal); G47.30 Sleep apnea, unspecified; R40.0 Somnolence | CPT/HCPCS: 95806 ==

== ENCOUNTER → 2024-02-13 | Outpatient (CLI) | payer OTHER, SELFPAY | END | disposition home or self-care (01) | LOC: BFHLAB 14:57 → LABSPEC 15:01 | PROVIDERS: PCP Family Medicine; Referring Provider Family Medicine; Visit Provider Family Medicine | DX: R30.0 Dysuria (principal) | CPT/HCPCS: 87086; 87088 ==

== ENCOUNTER 2024-05-01 07:18 | Day surgery (SDC) | payer OTHER, SELFPAY ==
[2024-05-01] VITALS (8 sets, daily range): BP systolic 86–118; BP diastolic 54–96; PULSE 74–92; RESP 16–81; TEMP 36.1–36.8; O2SAT 18–100; BMI 37.0
--- NOTE | 2024-05-01 07:36 | PCM.PRE.AN2 ---
ASA Classification* ASA Classification ASA Classification: 2 Assessment & Plan Anesthesia* Anesthesia Assessment Anesthesia Assessment: Discussed sedation and/or anesthesia options, risks, benefits, and alternatives with patient/parents/legal guardian/POA. Questions invited. The patient/parents/legal guardian/POA seems to understand and agrees to proceed with anesthesia plan. Reviewed the physical assessment, medical history, allergy history and patient home medications list prior to surgery/procedure/anesthetic and documented any changes. Performed airway and anesthesia risk assessments. Anesthesia Type Anesthesia Type: MAC (see written pre anesthesia record for full assessment) Anesthesia Focused Assessment* Airway Assessment Mouth opens: >3 cm Mallampati Score: II Focused Labs Anesthesia Preop lab: CBC WBC 8.3 K/mm3 (4.4-11.0) 03/17/23 13:55 RBC 5.11 M/mm3 (4.2-5.4) 03/17/23 13:55 Hgb 14.6 g/dL (12.0-15.0) 03/17/23 13:55 Hct 44.5 % (37-47) 03/17/23 13:55 Plt Count 302 K/mm3 (150-450) 03/17/23 13:55 CHEMISTRY Potassium 3.6 mmol/L (3.5-5.1) 03/17/23 13:55 Sodium 137 mmol/L (136-145) 03/17/23 13:55 BUN 11 mg/dL (7-18) 03/17/23 13:55 Creatinine 0.82 mg/dL (0.55-1.02) 03/17/23 13:55 Glucose 111 mg/dL (74-106) H 03/17/23 13:55 TSH 0.94 uIU/mL (0.358-3.74) 05/01/18 17:27 COAG PT 12.8 SECONDS (11.7-14.9) 10/26/18 14:17 Urine Test Negative Negative 11/02/18 11:22 Pre-Assessment Diagnosis/Proposed Procedure Planned Operative Procedure(s): CSCOPE Anesthesia History 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 When Was Last Pacemaker Check QUESTION #4 FULL TEXT: You/Your Family Experience fever (hyperthermia) with Anesthesia Last Oral Intake Last Oral intake: Last Oral Intake NPO since Meds taken in AM with sips of water? Meds patient instructed to take am of surgery PONV PONV - warehouse logistics manager: PONV - warehouse logistics manager Female Yes 04/26/24 11:37 HX of Motion Sickness No 04/26/24 11:37 HX of N/V After Surgery No 04/26/24 11:37 Non-Smoker Yes 04/26/24 11:37 Duration of Surgery greater No 04/26/24 11:37 than 60 minutes Number of Risk Factors 2 04/26/24 11:37 PONV Score Moderate Risk 04/26/24 11:37 Height & Weight Height & Weight: Anesthesia: Height & Weight Height 5 ft 3 in 02/29/24 08:46 Respiratory Assessment Respiratory Assessment - warehouse logistics manager: Respiratory Tract Infection Hx - warehouse logistics manager Hx Respiratory Tract Infection No 04/26/24 11:37 STOP Sleep Apnea STOP Sleep Apnea - warehouse logistics manager: STOP Sleep Apnea - warehouse logistics manager Hx Hypertension Yes: CONTROLLED WITH MED 04/26/24 11:37 Hx Sleep Apnea No 04/26/24 11:37 CPAP BIPAP Do you snore loudly (louder Yes 04/26/24 11:37 than talking or can be heard Do you often feel tired/ No 04/26/24 11:37 fatigued/ sleepy during daytime? Has anyone observed you stop No 04/26/24 11:37 breathing during sleep? STOP Results Positive 04/26/24 11:37 QUESTION #5 FULL TEXT : Do you snore loudly (louder than talking or can be heard through closed doors)? Tobacco Use History Tobacco Use History - warehouse logistics manager: Tobacco Use History - warehouse logistics manager Tobacco Use Smoking Status Never smoker 04/26/24 11:37 Hx Tobacco Use No 04/26/24 11:37 Years Smoking Packs Smoked per Day Smoking Cessation Date was within the last 15 years Hx Smoking Cessation Date Hx Smoking Cessation Counseling Hematologic Medial History Hematologic Hx - warehouse logistics manager: Hematologic Medical Hx - body man Hx of Blood Transfusion No 04/26/24 11:37 Hx of Transfusion in last 3 No 04/26/24 11:37 Months Date of Last Transfusion (if within last 3 months) Ever experience any problems No 04/26/24 11:37 with transfusion(s)? Specify any problems Hx of Preganancy in last 3 No 04/26/24 11:37 Months Nurse Filling Out Transfusion DSCHRIBER 04/26/24 11:37 & Questions: Date: 04/26/24 04/26/24 11:37 Time: 11:38 04/26/24 11:37 Patient unable to answer at this time (ie. confused, unrespo /Reproduction History /Reproductive History - warehouse logistics manager: /Reproductive Hx- warehouse logistics manager Hx Now No 04/26/24 11:37 Gestational Age (in weeks): EDC: Hx Hx Para Hx Section SAB No 04/26/24 11:37 Active Medications Active Medications: Current Medications Generic Name Dose Route Start Last Admin Trade Name Freq PRN Reason Stop Dose Admin Lactated Ringer's 1,000 mls @ 15 mls/hr 05/01/24 07:30 IV .Q48H BRETT PFSH Medical History Loss of hearing Wears glasses Anxiety Alcohol use Arthritis Low iron Easy bruising Heartburn Non-smoker Shortness of breath on exertion History of edema Hypertension Endometrioma Subcutaneous mass of abdominal wall Asthma Endometrial thickening on ultrasound Menorrhagia Home Medications ?Medication ?Instructions ?Recorded ?Last Taken ?Type albuterol sulfate 90 mcg/actuation 1 - 2 puff inhalation Q4H PRN PRN 10/26/18 Unknown History aerosol inhaler Sob &/Or Wheezing montelukast 10 mg tablet 10 mg PO DAILY 12/18/20 Unknown History meloxicam 15 mg tablet 15 mg PO DAILY 12/07/22 Unknown History losartan 50 mg-hydrochlorothiazide 1 tab PO DAILY 03/17/23 Unknown History 12.5 mg tablet phentermine 37.5 mg tablet 37.5 mg PO DAILY 02/29/24 04/20/24 History ferrous sulfate 325 mg (65 mg 325 mg PO DAILY 04/26/24 Unknown History iron) tablet (Feosol) fluticasone propionate 50 2 spray intranasal DAILY 04/26/24 Unknown History mcg/actuation nasal spray,suspension loratadine 10 mg tablet 10 mg PO DAILY 04/26/24 Unknown History Allergy/AdvReac Type Severity Reaction Status Date / Time iodine Allergy Hives Verified 04/26/24 11:34 shellfish derived Allergy Anaphylaxis Verified 04/26/24 11:34 Family History Father Heart disease Hypertension Mother Heart disease Hypertension Kidney disease Surgical History History of hisory of biopsy abd mass S/P laparoscopic cholecystectomy S/P hysterectomy Social History household members: spouse Smoking Status: Never smoker alcohol intake: current alcohol intake frequency: a few times a month Review of Systems (Anesthesia) ROS Narrative System reviewed and no additional complaints, except as documented.
--- NOTE | 2024-05-01 07:38 | H&P.OPEN ---
HPI - General General Date of Service: 05/01/24 HPI Narrative FLAVIO GUTIERREZ, is a 44 F who presents for screening colonoscopy. Patient denies any changes since her office visit denies any more blood per rectum. office visit 02/29/24 HPI HPI: 44-year-old female presents for colonoscopy. Patient is a history of constipation/looser stools states this been going on since her 20s. Patient states she has bowel moods about every 2 to 3 days. Patient will occasionally have some bright red blood which she had previously been for about 7 days but also noticed some blood in her urine at that time to that has resolved. Patient's urine sample was contaminated they did not give her any antibiotics and that did resolve. Patient denies any family history of colon cancer. Patient denies any chronic abdominal pain/nausea/vomiting/reflux. [facility] Medical History Loss of hearing Wears glasses Anxiety Alcohol use Arthritis Low iron Easy bruising Heartburn Non-smoker Shortness of breath on exertion History of edema Hypertension Endometrioma Subcutaneous mass of abdominal wall Asthma Endometrial thickening on ultrasound Menorrhagia Home Medications ?Medication ?Instructions ?Recorded ?Last Taken ?Type albuterol sulfate 90 mcg/actuation 1 - 2 puff inhalation Q4H PRN PRN 10/26/18 Unknown History aerosol inhaler Sob &/Or Wheezing montelukast 10 mg tablet 10 mg PO DAILY 12/18/20 Unknown History meloxicam 15 mg tablet 15 mg PO DAILY 12/07/22 Unknown History losartan 50 mg-hydrochlorothiazide 1 tab PO DAILY 03/17/23 Unknown History 12.5 mg tablet phentermine 37.5 mg tablet 37.5 mg PO DAILY 02/29/24 04/20/24 History ferrous sulfate 325 mg (65 mg 325 mg PO DAILY 04/26/24 Unknown History iron) tablet (Feosol) fluticasone propionate 50 2 spray intranasal DAILY 04/26/24 Unknown History mcg/actuation nasal spray,suspension loratadine 10 mg tablet 10 mg PO DAILY 04/26/24 Unknown History Allergy/AdvReac Type Severity Reaction Status Date / Time iodine Allergy Hives Verified 04/26/24 11:34 shellfish derived Allergy Anaphylaxis Verified 04/26/24 11:34 Family History Father Heart disease Hypertension Mother Heart disease Hypertension Kidney disease Surgical History History of hisory of biopsy abd mass S/P laparoscopic cholecystectomy S/P hysterectomy Social History household members: spouse Smoking Status: Never smoker alcohol intake: current alcohol intake frequency: a few times a month Past Medical/Surgical History Planned Operation Planned Operative Procedure(s): CSCOPE S.O.S: No Previous Hospitalizations/Surgeries HX Hospitalizations: No HX of Surgeries: D&C GALLBLADDER W/ TUBAL hysteroscopy d&c 2018 HYSTERECTOMY BSO 2019 Any Problems With Anesthesia: No You/Your Family Experience Fever (Hyperthermia) With Anes: No Cholinesterase deficiency: No Cardiovascular Hx Chest Pain within Last 2 months: No Hx of Irregular Heartbeat and/or Afib: No Hx Heart Attack: No Hx Congestive Heart Failure: No Hx Rheumatic Fever: No Hx Hypertension: Yes (CONTROLLED WITH MED) Hx Internal Defibrillator: No Hx Pacemaker: No Hx Cardiac Catheterization: No Hx Cardiac Surgery/Stents/Etc.: No Hx Stress Test: No Hx Pain in Legs when Walking/Leg Cramps: No Respiratory Chronic Cough: No HX of Shortness of Breath: Yes (slightly sob with 2 flights of stairs) Hoarseness: No Hx Chronic Obstructive Pulmonary Disease (COPD): No Hx Asthma: Yes (prn inhaler) Hx Emphysema: No Hx Sleep Apnea: No Hx Respiratory Tract Infection/Cold (presently): No Do You Snore Loudly (louder than talking or can be heard): Yes Do You Often Feel Tired/ Fatigued/ Sleepy Dring Daytime?: No Has Anyone Observed You Stop Breathing During Sleep?: No Result (for STOP score): Positive Hx Smoking: No Smoking Status: Never smoker Gastrointestinal Controlled With Meds: No (.) Hx Gastrointestinal Disorders: No Hx Gastrointestinal Bleed: No Hx Ulcer: No Hx Hiatal Hernia: No Difficulty Chewing/Swallowing: No Special diet followed at home: No Hx Unplanned Weight Loss of 20#: No HX Unplanned Weight Gain of 20#: No Neurological Hx Seizures: No HX Syncope/Blackout Spells/Unconsciousness: No Hx Transient Ischemic Attacks (TIA): No Hx Multiple Sclerosis: No Hx Parkinson's Disease: No Hx Head/Neck Injury: No Hx Headaches: Yes (OCC) Hx Back Injury/Pain: Yes (LOWER BACK PAIN OCC) Recent Onset of Speech Difficulty: No Restless Legs: No Does patient have nerve stimulator: No Blood Disorder Hx Leukemia: No Bleeding Tendencies: No Hx Deep Vein Thrombosis: No Hx High Cholesterol: No Blood Transmitted Disease: No Hx Hepatitis: No Hx Cirrhosis: No Hx Anemia: Yes (on iron) Hx Blood Disorders: No Reproduction : No Is Patient Lactating: No Hx Hysterectomy: Yes Hx Tubal Ligation: No Are You Post Menopause: No Genitourinary Hx Renal Disease: No Musculoskeletal Hx Arthritis: No Hx Rheumatoid Arthritis: No Hx Gout: No Recent Onset of an Orthopedic Problem: No Endocrine Hx Diabetes: No Thyroid Disease: No Hx Steroid Therapy: No Psycho/Social Hx Substance Use: No Hx Alcohol Use: Yes (SOCIAL) Hx Anxiety: No Hx Depression: No Mental Illness: No Hx Dementia: No Miscellaneous Hx Cancer: No Recent Exposure to Contagious Disease: No Hx of C-Diff: No Any Loose Teeth: No Allergies iodine Allergy (Verified 04/26/24 11:34) Hives shellfish derived Allergy (Verified 04/26/24 11:34) Anaphylaxis Discharge Is Pt Admitted From a Long Term, or a Assisted: No After D/C, Where Do you Plan to Go: Return Home Physical Exam Const alert, oriented x3 and no apparent distress HEENT normocephalic and head/scalp atraumatic Resp normal respiratory effort Cardio regular rate GI soft to palpation and non-tender; Negative for non-distended Palpation: Negative for guarding Extremity no clubbing, cyanosis or edema Skin no rashes or lesions noted Neuro CN's II-XII intact bilaterally Psych mental status grossly normal Assessment & Plan Assessment/Plan (1) Encounter for screening colonoscopy: Surgery Risks - Colonoscopy I discussed with the patient the risks of the procedure: Yes Risks Include but are not Limited To: Risks include but are not limited to: Bleeding, perforation requiring further surgery, inability to complete colonoscopy requiring barium enema.
[2024-05-01] MEDS: Lactated Ringers 1,000 ML 15 ML IV (07:49)
--- NOTE | 2024-05-01 08:44 | OP.CCLET_ITS ---
05/01/2024 Alize Narayanan [address] [place] [address] Re : Colonoscopy procedure for Elaine Appiah Dear Dr. Narayanan This procedure was performed on Wednesday, May 01, 2024. My impressions and recommendations are as follows: Impressions : - The entire examined colon is normal. - No specimens collected. Recommendations : - Repeat colonoscopy in 10 years for screening purposes. - Discharge patient to home. - Resume previous diet. - Continue present medications. My findings are described in the full procedure note, which is enclosed. If I can be of further assistance, please feel free to contact me at Doctor phone number(s): , Work: . Sincerely, MD Jany Beck MD 05/01/2024 8:43:38 AM This report has been signed electronically.
--- NOTE | 2024-05-01 08:44 | OP.COLON_ITS ---
Patient Name: Elaine Appiah Procedure Date: 05/01/2024 8:18 AM Date of : 1980 Age: 44 Procedure: Colonoscopy Indications: Screening for colorectal malignant neoplasm Providers: Jany Fam MD Medicines: Monitored Anesthesia Care Patient Profile: This is a 44 year old female. Last Colonoscopy: none. The patient's first colonoscopy is today. Complications: No immediate complications. Procedure: Pre-Anesthesia Assessment: - Prior to the procedure, a History and Physical was performed, and patient medications and allergies were reviewed. The patient's tolerance of previous anesthesia was also reviewed. The risks and benefits of the procedure and the sedation options and risks were discussed with the patient. All questions were answered, and informed consent was obtained. Prior Anticoagulants: The patient has taken no anticoagulant or antiplatelet agents. ASA Grade Assessment: Per anesthesia. After reviewing the risks and benefits, the patient was deemed in satisfactory condition to undergo the procedure. After I obtained informed consent, the scope was passed under direct vision. Throughout the procedure, the patient's blood pressure, pulse, and oxygen saturations were monitored continuously. The Colonoscope was introduced through the anus and advanced to the terminal ileum. The colonoscopy was performed without difficulty. The patient tolerated the procedure well. The quality of the bowel preparation was good. Scope In: 8:25:45 AM Scope Withdrawal Time 0 hours 6 minutes 25 seconds Scope Out: 8:38:33 AM Total Procedure Duration Time 0 hours 12 minutes 48 seconds Findings: The entire examined colon appeared normal. Impression: - The entire examined colon is normal. - No specimens collected. Recommendation: - Repeat colonoscopy in 10 years for screening purposes. - Discharge patient to home. - Resume previous diet. - Continue present medications. Procedure Code(s): --- Professional --- G0121, PT, Colorectal cancer screening; colonoscopy on individual not meeting criteria for high risk Diagnosis Code(s): --- Professional --- Z12.11, Encounter for screening for malignant neoplasm of colon CPT copyright 2021 [employer]. All rights reserved. The codes documented in this report are preliminary and upon tree killer review may be revised to meet current compliance requirements. MD Jany Beck MD 05/01/2024 8:43:38 AM This report has been signed electronically. Number of Addenda: 0 Note Initiated On: 05/01/2024 8:18 AM
--- NOTE | 2024-05-01 08:46 | PCM.POST.ANE ---
Anesthesia: Postop Eval I Current Vital Signs Temperature: 97 F Pulse Rate: 79 Blood Pressure: 97/61 Respiratory Rate: 16 Pulse Ox: 97 Oxygen Delivery Method: Room Air Assessment Airway patent: Yes Spontaneous unlabored respirations: Yes Mental status: Asleep nausea: No Vomiting: No Anesthesia Complication: No Fluid Hydration Crystalloid volume administer (ml): 600 Total IV fluid infused: 600 Progress Note Anesthesia document: Postop Eval 1 completed: Yes
--- NOTE | 2024-05-01 09:02 | PCM.POSTANE2 ---
Anesthesia Postop Eval I Sum Postop Eval Completion status Anesthesia document: Postop Eval 1 completed: Yes Anesthesia Postop Eval I Summary Anesthesia Postop Eval I Summary: Anesthesia Postop Eval I: Assessment Summary Airway patent Yes 05/01/24 08:46 [email or web address] Spontaneous unlabored Yes 05/01/24 08:46 [email or web address] respirations Mental status Asleep 05/01/24 08:46 [email or web address] nausea No 05/01/24 08:46 [email or web address] Vomiting No 05/01/24 08:46 [email or web address] Anesthesia Postop Eval I: Fluid Summary Crystalloid volume administer 600 05/01/24 08:46 [email or web address] (ml) Colloids volume administered ( ml) Blood Product volume administered (ml) Total IV fluid infused 600 05/01/24 08:46 [email or web address] Anesthesia Postop Eval I: Summary Notes Anesthesia Complication No 05/01/24 08:46 [email or web address] Anesthesia Complication Comment: Post-operative progress note Anesthesia: Postop Eval II Evaluation Mental status: Awake Pain Level: 0 nausea: No Vomiting: No
== END 2024-05-01 09:15 | disposition home or self-care (01) ==
LOC: EN 07:19 → AC 07:21
PROVIDERS: PCP Family Medicine; Referring Provider Family Medicine; Visit Provider Surgery
PROC: 0DJD8ZZ Inspection of Lower Intestinal Tract, Via Natural or Artificial Opening Endoscopic (ICD-10-PCS; CPT 45378; principal; 2024-05-01 08:25)
DX: Z12.11 Encounter for screening for malignant neoplasm of colon (principal); I10 Essential (primary) hypertension; F41.9 Anxiety disorder, unspecified; J45.909 Unspecified asthma, uncomplicated; Z79.899 Other long term (current) drug therapy; Z79.51 Long term (current) use of inhaled steroids
CPT/HCPCS: G0121; J7120; J2405

== ENCOUNTER → 2024-06-01 | Outpatient (CLI) | payer OTHER, SELFPAY ==
[2024-06-01 07:05] LABS: Absolute Lymphocyte Count 1.76 X10^3/uL (0.83-4.51); Absolute Neutrophil Count 15.2 X10^3/uL (2.0-7.7); Basophil# 0.03 X10^3/uL; Basophil% 0.2 % (0-1); Hematocrit 41.1 % (37-47); Hemoglobin 13.5 g/dL (12.0-15.0); Lymphocyte # 1.76 X10^3/ul (0.83-4.51); Lymphocyte % 9.6 % (19-41); Mean Corp Hgb Conc 32.8 g/dL (32-36); Mean Corpuscular Hgb 28.3 pg (27.0-32.0); Mean Corpuscular Volume 86.2 fL (81-99); Mean Platelet Vol. 9.5 fl (6.2-12.0); NRBC Flagged by Analyzer 0 % (0-5); Neutrophil # 15.23 X10^3/uL (2.7-7.7); Neutrophil % 83.4 % (47-70); Platelet Count 399 K/mm3 (150-450); RBC Distribution Width CV 12.4 % (11.6-14.6); RBC Distribution Width SD 38.9 fl (35.1-43.9); Red Blood Count 4.77 M/mm3 (4.2-5.4); White Blood Count 18.3 K/mm3 (4.4-11.0)
[2024-06-01 07:33] LABS: ALB/GLOB Ratio 0.8 RATIO (0.9-2.4); AST(SGOT) 14 U/L (15-37); Alanine Aminotransfer ALT/SGPT 27 U/L (13-56); Albumin, Serum 3.2 g/dL (3.2-5.0); Alkaline Phosphatase 58 U/L (45-117); Anion Gap 4 (5-15); BUN 18 mg/dL (7-18); BUN/Creat Ratio 27.3 RATIO (10-20); Chloride 107 mmol/L (98-107); Cholesterol 178 mg/dL (200); Creatinine, Serum 0.66 mg/dL (0.55-1.02); EST Glomerular Filtration Rate 103 mL/min (>60); Est Glom Filt Rate - Afr Amer 124 mL/min (>60); Ferritin 37 ng/mL (8-252); Glucose 106 mg/dL (74-106); High Density Lipoprotein 73 mg/dL; Iron 43 ug/dL (50-170); Potassium 3.7 mmol/L (3.5-5.1); Protein, Total 7.2 g/dL (6.4-8.2); Sodium Level 137 mmol/L (136-145); T4 Free Direct 0.97 ng/dL (0.76-1.46); Thyroid Stim Hormone (TSH) 0.651 uIU/mL (0.358-3.740); Triglycerides 66 mg/dL; Very Low Density Lipoprotein 13 mg/dL (5-40)
[2024-06-01 10:11] LABS: Vitamin B12 282 pg/mL (211-911); Vitamin D,25 Hydroxy 16.7 ng/mL
== END | disposition home or self-care (01) ==
LOC: LAB 06:41
PROVIDERS: PCP Family Medicine; Referring Provider Nurse Practitioner Family; Visit Provider Nurse Practitioner Family
DX: Z00.01 Encounter for general adult medical examination with abnormal findings (principal); D50.9 Iron deficiency anemia, unspecified; R53.83 Other fatigue
CPT/HCPCS: 36415; 80053; 80061; 82306; 82607; 82728; 83540; 84439; 84443; 85025

== ENCOUNTER → 2024-10-09 | Outpatient (CLI) | payer BC, SELFPAY ==
--- NOTE | 2024-10-09 08:58 | VDLE_ITS ---
Reason For Study: Left leg pain RIGHT LEFT CFV is compressible, spontaneous, phasic, GSV is normal. competent and demonstrates normal CFV is compressible, spontaneous, phasic, augmentation. competent, and demonstrates normal Procedure augmentation. This is a venous duplex using B-mode, color FV is compressible, spontaneous, phasic, flow and spectral Doppler. competent and demonstrates normal Exam performed in department. augmentation. A preliminary report was called and/or faxed POP V is compressible, spontaneous, phasic, to Dr. Narayanan. competent and demonstrates normal augmentation. T/P Trunk is compressible. PTV is compressible. LT PerV is compressible. VL/Venous Duplex US, Unilateral Interpretation Summary Deep veins of the left lower extremity are patent and compressible segmentally. There is no evidence of left lower extremity deep vein thrombosis. Valvular competence appears intac t within the proximal deep venous system on the left . The left great saphenous vein appears patent a nd compressible segmentally. The right common femoral vein is patent and compressible . Ordering Physician: Alize Narayanan Referring Physician: Alize Narayanan Performed By: Sandra Cordoba RVT
== END | disposition home or self-care (01) ==
PROVIDERS: PCP Family Medicine; Referring Provider Family Medicine; Visit Provider Family Medicine
DX: M79.659 Pain in unspecified thigh (principal)
CPT/HCPCS: 93971

== ENCOUNTER → 2025-05-30 | Outpatient (CLI) | payer BC, SELFPAY ==
--- OUTSIDE RECORDS SUMMARY | 2025-05-25 07:52 | XMS RPT_ITS | CCD ---
Author Organization [facility] Care Team Providers Care Acid Dumper Name Role Phone Dr. Alize Narayanan Primary Care Provider [phone] Dr. Alize Narayanan Referring Provider Jeovany CHERY, PA Charlene Iverson Attending Provider Tono Alcaraz DO Primary Care Provider [phone] ANDREI WEBSTER Referring Unavailable LISSA, TONO ABARCA Primary Care Unavailable SYSTEM, PROVIDER NOT IN Referring Unavaila ble SYSTEM, PROVIDER NOT IN Attending Unavaila ble LISSA, TONO ABARCA Primary Care Unavailable ANDREI WEBSTER Attending Unavailable LISSA, TONO ABARCA Primary Care Unavailable VINCENZO HERNÁNDEZ Attending Unavailable ANDREI WEBSTER Referring Unavailable LISSA, TONO TEVIN Primary Care Unavailable Malys, Alize Primary Care Unavailable Robotham, Jany Consulting Unavailable Robotham, Jany Attending Unavailable Malys, Alize Referring Unavailable Malys, Alize Primary Care Unavailable Robotham, Jany Attending Unavailable Malys, Alize Referring Unavailable Malys, Alize Referring Unavailable Malys, Alize Primary Care Unavailable Malys, Alize Attending Unavailable Cory, Ciera Attending Unavailable Malys, Alize Primary Care Unavailable Cory, Ciera Referring Unavailable Malys, Alize Primary Care Unavailable Malys, Alize Attending Unavailable Malys, Alize Referring Unavailable Malys, Alize Primary Care Unavailable Robotham, Jany Attending Unavailable Malys, Alize Referring Unavailable Allergies Allergy Classification Reported Allergen(s) Allergy Type Date of Onset Reaction(s) Facility (5 sources) Iodine Drug Allergy 2 Hives [facility] (14 sources) Shellfish; Translations: [SHELLFISH DERIVED] Allergy to substance 2 Anaphylaxis [facility] (8 sources) Ct: Iodinated Contrast- Oral And Iv Dye; Translations: [CT: IODINATED CONTRAST- ORAL AND IV DYE] Propensity to adverse reactions to drug 3 Anaphylaxis [facility] (1 source) Iodine Drug Allergy 4 [facility] Repository Medications Current Medications Medication Drug Class(es) Dates Sig (Normalized) Sig (Original) Albuterol (10 sources) beta2-Adrenergic Agonist Start: 10-26-2018 take 1 puff(s) by inhalation every four hours as needed Albuterol Sulfate Active 1 - 2 PUFF INHALATION EVERY 4 HOURS NEEDED October 26, 2018 12:00am Start: 10-26-2018 take 1 puff(s) by in halation every four hours as needed Albuterol Sulfate Active 1 - 2 PUFF INHALATION EVERY 4 HOURS NEEDED October 26, 2018 1:00am Start: 10-26-2018 take 1 puff(s) by in halation every four hours as needed Albuterol Sulfate Active 1 - 2 PUFF INHALATION EVERY 4 HOURS NEEDED October 26, 2018 1:00am Start: 02-21-2007 albuterol sulf ate 90 mcg/actuation aebs Inhale . 0 02/21/2007 Active aspirin 81 mg chewable tablet (2 sources) Platelet Aggregation Inhibitor, Nonsteroidal Anti-inflammatory Drug Start: 12-18-2020 take 81 mg by mouth once daily Aspirin Active 81 MG PO DAILY@0800 December 18, 2020 12:00am fluticasone propionate 0.05 mg/actuat metered dose nasal spray (5 sources) Corticosteroid Start: 03-21-2023 End: 03-20-2024 take 2 spray(s) nasal route once daily fluticasone propionate (FLONASE) 50 mcg/actuation nasal spray Indications: Seasonal allergic rhinitis due to pollen Instill 2 (two) sprays into each nostril daily . 16 mL 3 03/21/2023 03/20/2024 Active hydroCHLOROthiazide 12.5 mg / losartan potassium 50 mg oral tablet (8 sources) Thiazide Diuretic, Angiotensin 2 Receptor Felicity Start: 03-17-2023 take 1 tablet by mouth once daily Losartan-Hydroc hlorothiazide Active 1 TABLET PO DAILY March 16, 2023 11:00pm Start: 03-13-2023 take 1 tablet by socorro th once daily losartan-hydrochlorothiazide (HYZAAR) 50-12.5 mg per tablet Take 1 (one) tablet by mouth daily . 0 03/13/2023 Active iron carbonyl 45 mg oral tablet (5 sources) Start: 12-18-2020 take 45 mg by mouth once daily at mealtime Iron, Carbonyl Active 45 MG PO DAILY WITH MEALS December 17, 2020 11:00pm loratadine 10 mg oral tablet (5 sources) Start: 03-21-2023 End: 08-02-2024 take 1 tablet by mouth once daily loratadine (CLARITIN) 10 mg tablet Indications: Seasonal allergic rhinitis, unspecified trigger Take 1 (one) tablet (10 mg total) by mouth daily . 30 tablet 11 08/03/2023 08/02/2024 Active meloxicam 15 mg oral tablet (9 sources) Nonsteroidal Anti-inflammatory Drug Start: 12-07-2022 take 15 mg by mouth once daily Meloxicam Active 15 MG PO DAILY December 07, 2022 12:00am montelukast 10 mg oral tablet (10 sources) Leukotriene Receptor Antagonist Start: 12-18-2020 take 10 mg by mouth once daily Montelukast Active 10 MG PO DAILY December 17, 2020 11:00pm MULTIVITAMIN ORAL (2 sources) Start: 12-18-2020 MULTIVITAMIN ORAL Take by mouth . 0 12/18/2020 Active Multivitamin With Minerals (5 sources) Start: 12-18-2020 Multivitamin With Minerals Active 1 EACH PO DAILY December 17, 2020 11:00pm Start: 12-18-2020 Multivitamin W ith Minerals Active 1 EACH PO DAILY December 18, 2020 12:00am Completed/Discontinued Medications Medication Drug Class(es) Dates Sig (Normalized) Sig (Original) acetaminophen 325 mg / HYDROcodone bitartrate 5 mg oral tablet (4 sources) Opioid Agonist Start: 08-07-2022 End: 12-07-2022 take 1 tablet by mouth every six hours Hydrocodone-Acetam inophen Discontinued 1 TABLET PO EVERY 6 HOURS 07 05August 07, 2022 December 07, 2022 8:01am acetaminophen 325 mg / oxyCODONE hydrochloride 5 mg oral tablet (5 sources) Opioid Agonist Start: 11-03-2018 End: 11-10-2018 take 1 tablet by mouth every four hours as needed Oxycodone-Acetamin ophen Discontinued 1 - 2 TABLET PO EVERY 4 HOURS NEEDED 01 05November 03, 2018 12:00am November 10, 2018 12:16am amoxicillin 500 mg oral tablet (4 sources) Penicillin-class Antibacterial Start: 12-07-2022 End: 12-17-2022 take 500 mg by mouth twice daily Amoxicillin Discontinued 500 MG PO TWICE A DAY 20 December 07, 2022 12:00am December 16, 2022 11:05pm D7-O1-Qsmw-Cord-Rho d-P.Ginseng (5 sources) Start: 12-18-2020 End: 12-07-2022 W7-V2-Jswc-Cord-Rh od-P.Ginseng Discontinued 1 EACH PO DAILY December 17, 2020 11:00pm December 07, 2022 8:01am Start: 12-18-2020 End: 12-07-2022 T8-B4-Fxtf-Cord-Rhod-P.Ginse ng Discontinued 1 EACH PO DAILY December 18, 2020 12:00am December 07, 2022 9:01am Start: 12-18-2020 H6-S6-Hzxv-Cor d-Rhod-P.Ginseng Active 1 EACH PO DAILY December 18, 2020 12:00am cyclobenzaprine hydrochloride 10 mg oral tablet (5 sources) Muscle Relaxant Start: 07-30-2022 End: 12-07-2022 take 10 mg by mouth twice daily Cyclobenzaprine Discontinued 10 MG PO TWICE A DAY July 29, 2022 11:00pm December 07, 2022 8:01am diphenhydrAMINE hydrochloride 50 mg oral capsule (5 sources) Histamine-1 Receptor Antagonist Start: 11-19-2020 End: 12-03-2020 Diphenhydramine Hcl Discontinued 50 MG PO AT BEDTIME November 19, 2020 12:00am December 03, 2020 3:26pm Take 1 (one) tablet the night before the CT scan docusate sodium 100 mg oral capsule (5 sources) Start: 11-03-2018 End: 11-19-2020 take 100 mg by mouth twice daily Docusate Sodium Discontinued 100 MG PO TWICE A DAY November 03, 2018 12:00am November 19, 2020 2:09pm ferrous sulfate 325 mg oral tablet (5 sources) Start: 05-26-2018 End: 11-03-2018 take 1 tablet by mouth once daily Ferrous Sulfate (Iron) 325 MG tablet Discontinued 325 MG PO DAILY May 25, 2018 11:00pm November 03, 2018 10:01am ibuprofen 800 mg oral tablet (5 sources) Nonsteroidal Anti-inflammatory Drug Start: 11-03-2018 End: 12-07-2022 take 800 mg by mouth three times daily as needed Ibuprofen Discontinued 800 MG PO 3 TIMES DAILY NEEDED 60 November 03, 2018 12:00am December 07, 2022 8:01am lidocaine 0.05 mg/mg medicated patch (5 sources) Antiarrhythmic, Amide Local Anesthetic Start: 07-30-2022 End: 12-07-2022 apply 1 dose topically once daily Lidocaine (Lidoderm) 5 % adhesive patch,medicated Discontinued 1 PATCH TOPICAL DAILY July 29, 2022 11:00pm December 07, 2022 8:01am leave on most painful area for up to 12 hrs predniSONE 50 mg oral tablet (5 sources) Start: 11-19-2020 End: 12-03-2020 prednisone 50 mg tablet Discontinued 50 MG PO THREE TIMES A DAY 3 November 19, 2020 12:00am December 03, 2020 3:26pm Take 1 50 mg tablet at 13, 7 and 1 hour prior to the procedure or exam Vit,Gqea12-Ofzm-Xtrk c (Prenatabs Fa ) 1 TABLET tablet (5 sources) Start: 07-20-2013 End: 07-23-2013 take 1 tablet by mouth once daily Vit,Txgj18-Buwg-Sui ic (Prenatabs Fa ) 1 TABLET tablet Discontinued 1 TABLET PO DAILY July 19, 2013 11:00pm July 23, 2013 7:18am Start: 07-20-2013 End: 07-23-2013 take 1 tablet by mouth once daily Vit,Zugw21-Nqvb-Awsfu (Prenatab s Fa ) 1 TABLET tablet Discontinued 1 TABLET PO DAILY July 20, 2013 12:00am July 23, 2013 8:18am progesterone 100 mg oral capsule (5 sources) Progesterone Start: 10-26-2018 End: 11-03-2018 take 300 mg by mouth once daily Progesterone Micronized Discontinued 300 MG PO DAILY October 26, 2018 12:00am November 03, 2018 10:02am Problems Active Problems Problem Classification Problem Date Documented Date Episodic/Chronic Conditions associated with dizziness or vertigo (1 source) Benign paroxysmal positional vertigo; Translations: [Benign paroxysmal vertigo, right ear] 03-21-2023 Episodic Endometriosis (5 sources) Endometriosis (clinical); Translations: [Endometrioma] 12-10-2020 Chronic Fracture of upper limb (4 sources) Fracture of hand; Translations: [Unspecified fracture of left wrist and hand, initial encounter for closed fracture] 08-07-2022 Episodic Menstrual disorders (10 sources) Menorrhagia; Translations: [Excessive and frequent menstruation with regular cycle] 11-02-2018 Chronic Nonspecific chest pain (3 sources) Chest pain; Translations: [Chest pain, unspecified] 03-17-2023 Episodic Other and unspecified benign neoplasm (2 sources) External auditory canal osteoma; Translations: [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] 03-21-2023 Episodic Other and unspecified benign neoplasm (2 sources) 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; Translations: [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] Onset: 07-02-2024 Episodic Other circulatory disease (3 sources) H/O: hypertension; Translations: [Personal history of other diseases of the circulatory system] 03-17-2023 Episodic Other connective tissue disease (1 source) Pain in unspecified thigh; Translations: [Pain in unspecified thigh] Onset: 11-01-2024 Episodic Other ear and sense organ disorders (3 sources) Hearing loss in right ear; Translations: [Unspecified hearing loss, right ear] 03-21-2023 Chronic Other ear and sense organ disorders (3 sources) Sensorineural hearing loss; Translations: [Sensorineural hearing loss, unilateral, right ear, with restricted hearing on the contralateral side] Onset: 05-02-2023 05-02-2023 Chronic Other ear and sense organ disorders (1 source) Sensorineural hearing loss, bilateral; Translations: [Sensorineural hearing loss, bilateral] 05-02-2023 Chronic Other ear and sense organ disorders (2 sources) Sensorineural hearing loss, unilateral, right ear, with restricted hearing on the contralateral side; Translations: [Sensorineural hearing loss, unilateral, right ear, with restricted hearing on the contralateral side] Onset: 05-02-2023 Chronic Other ear and sense organ disorders (1 source) Bilateral hearing loss; Translations: [Sensorineural hearing loss, unilateral, right ear, with restricted hearing on the contralateral side] 05-30-2023 Chronic Other ear and sense organ disorders (2 sources) Conductive hearing loss, unspecified; Translations: [Conductive hearing loss, unspecified] Onset: 07-02-2024 Chronic Other ear and sense organ disorders (2 sources) Unspecified sensorineural hearing loss; Translations: [Unspecified sensorineural hearing loss] Onset: 07-02-2024 Chronic Other ear and sense organ disorders (1 source) Bilateral subjective tinnitus of ears; Translations: [Tinnitus, bilateral] 05-30-2023 Episodic Other ear and sense organ disorders (2 sources) Tinnitus, bilateral; Translations: [Tinnitus, bilateral] Onset: 07-02-2024 Episodic Other screening for suspected conditions (not mental disorders or infectious disease) (5 sources) Endometrium thickened; Translations: [Abnormal findings on diagnostic imaging of other specified body structures] 11-19-2020 Chronic Other skin disorders (5 sources) Mass of subcutaneous tissue of abdominal wall; Translations: [Localized swelling, mass and lump, trunk] 11-19-2020 Episodic Other upper respiratory disease (1 source) Allergic rhinitis due to pollen; Translations: [Allergic rhinitis due to pollen] 03-21-2023 Chronic Other upper respiratory disease (1 source) Seasonal allergic rhinitis; Translations: [Other seasonal allergic rhinitis] 08-03-2023 Chronic Other upper respiratory infections (6 sources) Streptococcal sore throat; Translations: [Streptococcal pharyngitis] 12-07-2022 Episodic Otitis media and related conditions (8 sources) Acute right otitis media; Translations: [Otitis media, unspecified, right ear] Onset: 07-02-2024 12-07-2022 Episodic Spondylosis; intervertebral disc disorders; other back problems (5 sources) Spasm of back muscles; Translations: [Muscle spasm of back] 08-07-2022 Episodic Past or Other Problems Problem Classification Problem Date Documented Da te Episodic/Chronic Genitourinary symptoms and ill-defined conditions (1 source) Dysuria; Translations: [Dysuria] Onset: 02-20-2024 Episodic Other gastrointestinal disorders (1 source) Constipation, unspecified; Translations: [Constipation, unspecified] Onset: 02-29-2024 Episodic Other screening for suspected conditions (not mental disorders or infectious disease) (2 sources) Encounter for screening for malignant neoplasm of colon; Translations: [Encounter for screening for malignant neoplasm of colon] Onset: 05-18-2024 Episodic Unclassified (5 sources) hisory of biopsy abd mass 04-23-2022 Results Test Name Value Interpretation Reference Range Facility Venous Duplex US, Unilateral on 10-09-2024 Venous Duplex US, Unilateral [facility] [address] [place] [address] Venous Duplex US, Unilateral 10/09/24 0859 MR#: [id number] Acct: [id number] Name: ELAINE APPIAH Rep #: [id number] : 1980 44 From: Mario Wagoner MD Attending Dr: Dr. Alize Narayanan, Status: REG CL I Ordering Dr: Alize Narayanan DO Date: 10/09/24 Location: [facility] Sex: F C Admitted: Reason For Study: Left leg pain RIGHT LEFT CFV is compressible, spontaneous, phasic, GSV is normal. competent and demonstrates normal CFV is compressible, spontaneous, phasic, augmentation. competent, and demonstrates normal Procedure augmentation. This is a venous duplex using B-mode, color FV is compressible, spontaneous, phasic, flow and spectral Doppler. competent and demonstrates normal Exam performed in department. augmentation. A preliminary report was called and/or faxed POP V is compressible, spontaneous, phasic, to Dr. Narayanan. competent and demonstrates normal augmentation. T/P Trunk is compressible. PTV is compressible. LT PerV is compressible. VL/Venous Duplex US, Unilateral Interpretation Summary Deep veins of the left lower extremity are patent and compressible segmentally. There is no evidence of left lower extremity deep vein thrombosis. Valvular competence appears intact within the proximal deep venous system on the left . The left great saphenous vein appears patent and compressible segmentally. The right common femoral vein is patent and compressible . Ordering Physician: Alize Narayanan Referring Physician: Alize Narayanan Performed By: Sandra Cordoba, RVT 10/09/242311 Date Mario Wagoner MD CC: Dr. Alize Narayanan, Date Dictated: 10/09/24858 Date Transcribed: 10/09/242311 [employer] Building Architect: Signed Normal [facility] CBC W/Diff, Automatedon 08-3 0-2023 Absolute Lymph 1.76 X10 3/uL Normal 0.83-4.51 [facility] Comment on above: Performed By: #### L 503.6150, L503.6550, L500.4050, L100.0100, L501.9520, L506.0400, L503.0105, L506.1000, L500.4100 #### [facility] [address] [place], [address] Absolute Neut 15.2 X10 3/uL High 2.0-7.7 [facility] Comment on above: Performed By: #### L 503.6150, L503.6550, L500.4050, L100.0100, L501.9520, L506.0400, L503.0105, L506.1000, L500.4100 #### [facility] [address] [place], [address] Basophils/100 WBC (Bld) 0.2 % Normal 0-1 [facility] Comment on above: Performed By: #### L 503.6150, L503.6550, L500.4050, L100.0100, L501.9520, L506.0400, L503.0105, L506.1000, L500.4100 #### [facility] [address] [place], [address] Eosinophils/100 WBC (Bld) 0.0 % Normal 0-5 [facility] Comment on above: Performed By: #### L 503.6150, L503.6550, L500.4050, L100.0100, L501.9520, L506.0400, L503.0105, L506.1000, L500.4100 #### [facility] [address] [place], [place], [id number] (931) Erythrocyte distribution width (RBC) [Ratio] 12.4 % Normal 11.6-14.6 [facility] Comment on above: Performed By: #### L 503.6150, L503.6550, L500.4050, L100.0100, L501.9520, L506.0400, L503.0105, L506.1000, L500.4100 #### [facility] [address] [place], [place], [id number] (388) Hematocrit (Bld) [Volume fraction] 41.1 % Normal 37-47 [facility] Comment on above: Performed By: #### L 503.6150, L503.6550, L500.4050, L100.0100, L501.9520, L506.0400, L503.0105, L506.1000, L500.4100 #### [facility] [address] [place], [place], [phone] (965) Hemoglobin (Bld) [Mass/Vol] 13.5 g/dL Normal 12.0-15.0 [facility] Comment on above: Performed By: #### L 503.6150, L503.6550, L500.4050, L100.0100, L501.9520, L506.0400, L503.0105, L506.1000, L500.4100 #### [facility] [address] [place], [address] IG% 0.800 Normal 0.0-0.9 [facility] Comment on above: Result Comment: IG% - Immature Granulocytes (promyelocytes, myelocytes and metamyelocytes) > 1% indicates that a LEFT SHIFT is Present. Performed By: #### L 503.6150, L503.6550, L500.4050, L100.0100, L501.9520, L506.0400, L503.0105, L506.1000, L500.4100 #### [facility] [address] [place], [address] Lymphocytes/100 WBC (Bld) 9.6 % Low 19-41 [facility] Comment on above: Performed By: #### L 503.6150, L503.6550, L500.4050, L100.0100, L501.9520, L506.0400, L503.0105, L506.1000, L500.4100 #### [facility] [address] [place], [address] MCH (RBC) [Entitic mass] 28.3 pg Normal 27.0-32.0 [facility] Comment on above: Performed By: #### L 503.6150, L503.6550, L500.4050, L100.0100, L501.9520, L506.0400, L503.0105, L506.1000, L500.4100 #### [facility] [address], [address] MCHC (RBC) [Mass/Vol] 32.8 g/dL Normal 32-36 [facility] Comment on above: Performed By: #### L 503.6150, L503.6550, L500.4050, L100.0100, L501.9520, L506.0400, L503.0105, L506.1000, L500.4100 #### [facility] [address] [place], [address] MCV (RBC) [Entitic vol] 86.2 fL Normal 81-99 [facility] Comment on above: Performed By: #### L 503.6150, L503.6550, L500.4050, L100.0100, L501.9520, L506.0400, L503.0105, L506.1000, L500.4100 #### [facility] [address] [place], [address] Monocytes/100 WBC (Bld) 6.0 % Normal 0-10 [facility] Comment on above: Performed By: #### L 503.6150, L503.6550, L500.4050, L100.0100, L501.9520, L506.0400, L503.0105, L506.1000, L500.4100 #### [facility] [address] [place], [address] Neutrophils/100 WBC (Bld) 83.4 % High 47-70 [facility] Comment on above: Performed By: #### L 503.6150, L503.6550, L500.4050, L100.0100, L501.9520, L506.0400, L503.0105, L506.1000, L500.4100 #### [facility] [address] [place], [address] Nucleated RBC (Bld) [#/Vol] 0 10*3/uL Normal 0-5 [facility] Comment on above: Performed By: #### L 503.6150, L503.6550, L500.4050, L100.0100, L501.9520, L506.0400, L503.0105, L506.1000, L500.4100 #### [facility] [address] [place], [address] Platelet mean volume (Bld) [Entitic vol] 9.5 fL Normal 6.2-12.0 [facility] Comment on above: Performed By: #### L 503.6150, L503.6550, L500.4050, L100.0100, L501.9520, L506.0400, L503.0105, L506.1000, L500.4100 #### [facility] [address] [place], [address] Platelets (Bld) [#/Vol] 399 10*3/uL Normal 150-450 [facility] Comment on above: Performed By: #### L 503.6150, L503.6550, L500.4050, L100.0100, L501.9520, L506.0400, L503.0105, L506.1000, L500.4100 #### [facility] [address] [place], [address] RBC (Bld) [#/Vol] 4.77 10*6/uL Normal 4.2-5.4 [facility] Comment on above: Performed By: #### L 503.6150, L503.6550, L500.4050, L100.0100, L501.9520, L506.0400, L503.0105, L506.1000, L500.4100 #### [facility] [address] [place], [address] RDW SD 38.9 fl Normal 35.1-43.9 [facility] Comment on above: Performed By: #### L 503.6150, L503.6550, L500.4050, L100.0100, L501.9520, L506.0400, L503.0105, L506.1000, L500.4100 #### [facility] [address] [place], [address] WBC (Bld) [#/Vol] 18.3 10*3/uL High 4.4-11.0 [facility] Comment on above: Performed By: #### L 503.6150, L503.6550, L500.4050, L100.0100, L501.9520, L506.0400, L503.0105, L506.1000, L500.4100 #### [facility] [address] [place], [address] Comprehensive Metabolic Prof ilon 06-01-2024 Albumin [Mass/Vol] 3.2 g/dL Normal 3.2-5.0 [facility] Comment on above: Performed By: #### L 503.6150, L503.6550, L500.4050, L100.0100, L501.9520, L506.0400, L503.0105, L506.1000, L500.4100 #### [facility] [address] [place], [address] Albumin/Globulin [Mass ratio] 0.8 {ratio} Low 0.9-2.4 [facility] Comment on above: Performed By: #### L 503.6150, L503.6550, L500.4050, L100.0100, L501.9520, L506.0400, L503.0105, L506.1000, L500.4100 #### [facility] [address] [place], [address] ALK P 58 U/L Normal 45-117 [facility] Comment on above: Performed By: #### L 503.6150, L503.6550, L500.4050, L100.0100, L501.9520, L506.0400, L503.0105, L506.1000, L500.4100 #### [facility] [address] [place], [address] ALT [Catalytic activity/Vol] 27 U/L Normal 13-56 [facility] Comment on above: Performed By: #### L 503.6150, L503.6550, L500.4050, L100.0100, L501.9520, L506.0400, L503.0105, L506.1000, L500.4100 #### [facility] [address] [place], [address] AST [Catalytic activity/Vol] 14 U/L Low 15-37 [facility] Comment on above: Performed By: #### L 503.6150, L503.6550, L500.4050, L100.0100, L501.9520, L506.0400, L503.0105, L506.1000, L500.4100 #### [facility] [address] [place], [address] Bilirubin [Mass/Vol] 0.20 mg/dL Normal 0.20-1.00 [facility] Comment on above: Result Comment: For patients on eltrombopag therapy, use of Dimension [place] TBIL is not recommended. Performed By: #### L 503.6150, L503.6550, L500.4050, L100.0100, L501.9520, L506.0400, L503.0105, L506.1000, L500.4100 #### [facility] [address] [place], [address] BUN/CRE 27.3 RATIO High 10-20 [facility] Comment on above: Performed By: #### L 503.6150, L503.6550, L500.4050, L100.0100, L501.9520, L506.0400, L503.0105, L506.1000, L500.4100 #### [facility] [address] [place], [address] CA,Total 9.0 mg/dL Normal 8.5-10.1 [facility] Comment on above: Performed By: #### L 503.6150, L503.6550, L500.4050, L100.0100, L501.9520, L506.0400, L503.0105, L506.1000, L500.4100 #### [facility] [address] [place], [address] Chloride [Moles/Vol] 107 mmol/L Normal 98-107 [facility] Comment on above: Performed By: #### L 503.6150, L503.6550, L500.4050, L100.0100, L501.9520, L506.0400, L503.0105, L506.1000, L500.4100 #### [facility] [address] [place], [address] CO2 [Moles/Vol] 26.0 mmol/L Normal 21.0-32.0 [facility] Comment on above: Performed By: #### L 503.6150, L503.6550, L500.4050, L100.0100, L501.9520, L506.0400, L503.0105, L506.1000, L500.4100 #### [facility] [address] [place], [place], [phone] ([phone]) Creatinine [Mass/Vol] 0.66 mg/dL Normal 0.55-1.02 [facility] Comment on above: Result Comment: The validity of the calculated GFR GFRAA in patients over 70 years has not been determined. Clinical correlation is essential. Performed By: #### L 503.6150, L503.6550, L500.4050, L100.0100, L501.9520, L506.0400, L503.0105, L506.1000, L500.4100 #### [facility] [address] [place], [address] EST GFR - AA 124 mL/min Normal >60 [facility] Comment on above: Result Comment: Afri can Nauruan GFR Calc Performed By: #### L 503.6150, L503.6550, L500.4050, L100.0100, L501.9520, L506.0400, L503.0105, L506.1000, L500.4100 #### [facility] [address] [place], [address] GAP 4 Low 5-15 [facility] Comment on above: Performed By: #### L 503.6150, L503.6550, L500.4050, L100.0100, L501.9520, L506.0400, L503.0105, L506.1000, L500.4100 #### [facility] [address] [place], [address] GFR/1.73 sq M.predicted among non-blacks MDRD (S/P/Bld) [Vol rate/Area] 103 mL/min/{1.73_m2} Normal >60 [facility] Comment on above: Result Comment: Non- GFR Calc Performed By: #### L 503.6150, L503.6550, L500.4050, L100.0100, L501.9520, L506.0400, L503.0105, L506.1000, L500.4100 #### [facility] [address] [place], [address] (948) Globulin (S) [Mass/Vol] 4.0 g/dL Normal 2.2-4.2 [facility] Comment on above: Performed By: #### L 503.6150, L503.6550, L500.4050, L100.0100, L501.9520, L506.0400, L503.0105, L506.1000, L500.4100 #### [facility] [address] [place], [address] Glucose [Mass/Vol] 106 mg/dL Normal 74-106 [facility] Comment on above: Result Comment: Fast ing Glucose result from 100 to 125 mg/dL suggests IMPAIRED HOMEOSTASIS per A.D.A. criteria. Performed By: #### L 503.6150, L503.6550, L500.4050, L100.0100, L501.9520, L506.0400, L503.0105, L506.1000, L500.4100 #### [facility] [address] [place], [place], [phone] (069) Potassium [Moles/Vol] 3.7 mmol/L Normal 3.5-5.1 [facility] Comment on above: Performed By: #### L 503.6150, L503.6550, L500.4050, L100.0100, L501.9520, L506.0400, L503.0105, L506.1000, L500.4100 #### [facility] [address] [place], [address] Sodium [Moles/Vol] 137 mmol/L Normal 136-145 [facility] Comment on above: Performed By: #### L 503.6150, L503.6550, L500.4050, L100.0100, L501.9520, L506.0400, L503.0105, L506.1000, L500.4100 #### [facility] [address] [place], [place], [phone] (506) T PROT 7.2 g/dL Normal 6.4-8.2 [facility] Comment on above: Performed By: #### L 503.6150, L503.6550, L500.4050, L100.0100, L501.9520, L506.0400, L503.0105, L506.1000, L500.4100 #### [facility] [address] [place], [address] Urea nitrogen [Mass/Vol] 18 mg/dL Normal 7-18 [facility] Comment on above: Performed By: #### L 503.6150, L503.6550, L500.4050, L100.0100, L501.9520, L506.0400, L503.0105, L506.1000, L500.4100 #### [facility] [address] [place], [address] Ferritinon 06-01-2024 Ferritin [Mass/Vol] 37 ng/mL Normal 8-252 [facility] Comment on above: Performed By: #### L 503.6150, L503.6550, L500.4050, L100.0100, L501.9520, L506.0400, L503.0105, L506.1000, L500.4100 #### [facility] [address] [place], [address] Ironon 06-01-2024 Iron [Mass/Vol] 43 ug/dL Low 50-170 [facility] Comment on above: Performed By: #### L 503.6150, L503.6550, L500.4050, L100.0100, L501.9520, L506.0400, L503.0105, L506.1000, L500.4100 #### [facility] [address] [place], [address] Lipid Profileon 06-01-2024 Cholesterol [Mass/Vol] 178 mg/dL Normal 200 [facility] Comment on above: Result Comment: <200 mg/dL Desirable 200-240 mg/dL Borderline >240 mg/dL High Risk Performed By: #### L 503.6150, L503.6550, L500.4050, L100.0100, L501.9520, L506.0400, L503.0105, L506.1000, L500.4100 #### [facility] [address] [place], [place], [phone] ([phone] Cholesterol in HDL [Mass/Vol] 73 mg/dL Normal [facility] Comment on above: Result Comment: The drugs N-Acetylcysteine and Metamizole may falsely depress this assay. Reference Range HDL <40 mg/dL Low HDL Cholesterol HDL >or= 60 mg/dL High HDL Cholesterol Performed By: #### L 503.6150, L503.6550, L500.4050, L100.0100, L501.9520, L506.0400, L503.0105, L506.1000, L500.4100 #### [facility] [address] [place], [address] Cholesterol in LDL [Mass/Vol] 92 mg/dL Normal 0-130 [facility] Comment on above: Performed By: #### L 503.6150, L503.6550, L500.4050, L100.0100, L501.9520, L506.0400, L503.0105, L506.1000, L500.4100 #### [facility] [address] [place], [place], [phone] (030) Cholesterol in VLDL [Mass/Vol] 13 mg/dL Normal 5-40 [facility] Comment on above: Performed By: #### L 503.6150, L503.6550, L500.4050, L100.0100, L501.9520, L506.0400, L503.0105, L506.1000, L500.4100 #### [facility] [address] [place], [place], [phone] (881) Triglyceride [Mass/Vol] 66 mg/dL Normal [facility] Comment on above: Result Comment: The drugs N-Acetylcysteine and Metamizole may falsely depress this assay. Serum Triglycerides Reference Interval Normal <150 mg/dL Borderline high 150 - 199 mg/dL High 200 - 499 mg/dL Very High > or = 500 mg/dL Performed By: #### L 503.6150, L503.6550, L500.4050, L100.0100, L501.9520, L506.0400, L503.0105, L506.1000, L500.4100 #### [facility] [address] [place], [address] T4 Free Directon 06-01-2024 T4 FREE DIRECT 0.97 ng/dL Normal 0.76-1.46 [facility] Comment on above: Performed By: #### L 503.6150, L503.6550, L500.4050, L100.0100, L501.9520, L506.0400, L503.0105, L506.1000, L500.4100 ####[facility] [id number] [facility] [place], [place], [id number] Thyroid Stim Hormone (TSH)on 06-01-2024 TSH 0.651 uIU/mL Normal 0.358-3.740 [facility] Comment on above: Performed By: #### L 503.6150, L503.6550, L500.4050, L100.0100, L501.9520, L506.0400, L503.0105, L506.1000, L500.4100 #### [facility] [address] [place], [place], [phone] Vitamin B12on 06-01-2024 Cobalamin (Vitamin B12) [Mass/Vol] 282 pg/mL Normal 211-911 [facility] Comment on above: Performed By: #### L 503.6150, L503.6550, L500.4050, L100.0100, L501.9520, L506.0400, L503.0105, L506.1000, L500.4100 ####[facility] [address] [facility] [address] [place], [place], [id number] Vitamin D,25 Hydroxyon 06-01 Vitamin D 25-OH 16.7 ng/mL Normal [facility] Comment on above: Result Comment: Aggie min D 25(OH) Status Range Deficiency <20 ng/mL (50nmol/L) Insufficiency 20 - 30 ng/mL (50 - 75 nmol/L) Sufficiency 30 - 100 ng/mL (75 - 250 nmol/L) Toxicity >100 ng/mL (>250 nmol/L) Performed By: #### L 503.6150, L503.6550, L500.4050, L100.0100, L501.9520, L506.0400, L503.0105, L506.1000, L500.4100 ####[facility] [address] [place], [place], [id number] Colonoscopy Reporton 0[address] Colonoscopy [address] [facility] Medical Records Department [address] [place] [address] Colonoscopy Report MR#: [id number] Acct: [id number] Name: ELAINE APPIAH Rep #: [id number] : 1980 44 From: Jany Fam MD PCP: Dr. Alize Narayanan, DO [place] [facility] Name: Elaine Appiah Procedure Date: 05/01/2024 8:18 AM Date of : 1980 Age: 44 Procedure: Colonoscopy Indications: Screening for colorectal malignant neoplasm Providers: Jany Fam MD Medicines: Monitored Anesthesia Care Patient Profile: This is a 44 year old female. Last Colonoscopy: none. The patient's first colonoscopy is today. Complications: No immediate complications. Procedure: Pre-Anesthesia Assessment: - Prior to the procedure, a History and Physical was performed, and patient medications and allergies were reviewed. The patient's tolerance of previous anesthesia was also reviewed. The risks and benefits of the procedure and the sedation options and risks were discussed with the patient. All questions were answered, and informed consent was obtained. Prior Anticoagulants: The patient has taken no anticoagulant or antiplatelet agents. ASA Grade Assessment: Per anesthesia. After reviewing the risks and benefits, the patient was deemed in satisfactory condition to undergo the procedure. After I obtained informed consent, the scope was passed under direct vision. Throughout the procedure, the patient's blood pressure, pulse, and oxygen saturations were monitored continuously. The Colonoscope was introduced through the anus and advanced to the terminal ileum. The colonoscopy was performed without difficulty. The patient tolerated the procedure well. The quality of the bowel preparation was good. Scope In: 8:25:45 AM Scope Withdrawal Time 0 hours 6 minutes 25 seconds Scope Out: 8:38:33 AM Total Procedure Duration Time 0 hours 12 minutes 48 seconds Findings: The entire examined colon appeared normal. Impression: - The entire examined colon is normal. - No specimens collected. Recommendation: - Repeat colonoscopy in 10 years for screening purposes. - Discharge patient to home. - Resume previous diet. - Continue present medications. Procedure Code(s): --- Professional --- G0121, PT, Colorectal cancer screening; colonoscopy on individual not meeting criteria for high risk Diagnosis Code(s): --- Professional --- Z12.11, Encounter for screening for malignant neoplasm of colon CPT copyright 2021 [employer]. All rights reserved. The codes documented in this report are preliminary and upon level vial grinder review may be revised to meet current compliance requirements. MD Jany Beck MD 05/01/2024 8:43:38 AM This report has been signed electronically. Number of Addenda: 0 Note Initiated On: 05/01/2024 8:18 AM 05/01/24842 Date Jany Ibarra Signature: Date (if indicated) CC: Dr. Alize Narayanan DO; Dr. Jany Fam MD Date Dictated: 05/01/24817 Date Transcribed: Green Building Architect: ERICKSON Broderick [facility] MR/POSTOP.[facility] 05-01-2024 MR/POSTOP.[facility] Medical Records Department [address] [place] [address] Anesthesia Postop Eval I 05/01/24845 MR#: [id number] Acct: [id number] Name: ELAINE APPIAH Rep #: [id number] : 1980 44 From: Wayne Spivey PCP: Dr. Alize Narayanan DO Status:REG SDC Y Race: C Location: [place] [address] Anesthesia: Postop Eval I Current Vital Signs Temperature: 97 F Pulse Rate: 79 Blood Pressure: 97/61 Respiratory Rate: 16 Pulse Ox: 97 Oxygen Delivery Method: Room Air Assessment Airway patent: Yes Spontaneous unlabored respirations: Yes Mental status: Asleep nausea: No Vomiting: No Anesthesia Complication: No Fluid Hydration Crystalloid volume administer (ml): 600 Total IV fluid infused: 600 Progress Note Anesthesia document: Postop Eval 1 completed: Yes 05/01/24845 Date Wayne Spivey Cosigner Signature: Date CC: Signed Normal [facility] MR/[id number] 05-01-2024 MR/POSTOPAN2 [facility] Medical Records Department [address] [place] [address] Anesthesia Postop Eval II 05/01/24901 MR#: [id number] Acct: [id number] Name: ELAINE APPIAH Rep #: [id number] : 1980 44 From: Andrei Swann MD PCP: Dr. Alize Narayanan, DO [place] [facility] [place] Race: C Location: [place] [address] Anesthesia Postop Eval I Sum Postop Eval Completion status Anesthesia document: Postop Eval 1 completed: Yes Anesthesia Postop Eval I Summary Anesthesia Postop Eval I Summary: Anesthesia Postop Eval I: Assessment Summary Airway patent Yes 05/01/24 08:46 [email or web address] Spontaneous unlabored Yes 05/01/24 08:46 [email or web address] respirations Mental status Asleep 05/01/24 08:46 [email or web address] nausea No 05/01/24 08:46 [email or web address] Vomiting No 05/01/24 08:46 [email or web address] Anesthesia Postop Eval I: Fluid Summary Crystalloid volume administer 600 05/01/24 08:46 [email or web address] (ml) Colloids volume administered ( ml) Blood Product volume administered (ml) Total IV fluid infused 600 05/01/24 08:46 [email or web address] Anesthesia Postop Eval I: Summary Notes Anesthesia Complication No 05/01/24 08:46 [email or web address] Anesthesia Complication Comment: Post-operative progress note Anesthesia: Postop Eval II Evaluation Mental status: Awake Pain Level: 0 nausea: No Vomiting: No 05/01/24901 Date Andrei Swann MD Cosigner Signature: Date CC: Signed Normal [facility] Surgery Visit Reporton 02-28 Surgery Visit Report [facility] [address] [place], [place] [id number] OFFICE VISIT Date of Service: 02/29/24 MR#: [id number] Acct: [id number] Name: ELAINE APPIAH Rep #: [id number] : 1980 Provider: Dr. Jany oshea MD Age/Sex: 44/F Location: [facility] Status: Signed Intake Vital Signs 03/17/23 13:41 02/29/24 08:46 Height 5 ft 3 in 5 ft 3 in Weight: 232 lb BMI 41.1 BP 123/85 H Blood Pressure Location Rt brachial Position Sitting Respiration 17 Pulse 95 Pulse Source Monitor Temp 97 F L Temp Source Temporal Pulse Oximetry (%) 100 Oxygen Delivery Method room air Intake Visit Reasons: BLOOD IN STOOL Chief Complaint: blood in stool Is patient in pain?: No Allergies iodine Allergy (Verified 02/29/24 08:47) Hives shellfish derived Allergy (Verified 02/29/24 08:47) Anaphylaxis Medications ???Medication ???Instructions ???Recorded ???Confirmed ???Type albuterol sulfate 90 mcg/actuation 1 - 2 puff inhalation Q4H PRN PRN 10/26/18 02/29/24 History aerosol inhaler Sob /Or Wheezing montelukast 10 mg tablet 10 mg PO DAILY 12/18/20 02/29/24 History meloxicam 15 mg tablet 15 mg PO DAILY 12/07/22 02/29/24 History losartan 50 mg-hydrochlorothiazi de 1 tab PO DAILY 03/17/23 02/29/24 History 12.5 mg tablet phentermine 37.5 mg tablet 37.5 mg PO DAILY 02/29/24 02/29/24 History PFSH Medical History Asthma Endometrial thickening on ultrasound Endometrioma Menorrhagia Subcutaneous mass of abdominal wall Surgical History hisory of biopsy abd mass S/P laparoscopic cholecystectomy S/P hysterectomy Family History (Updated 02/29/24 @ 08:46 by Linette Abbasi) Father Heart disease Hypertension Mother Heart disease Hypertension Kidney disease Social History (Updated 03/17/23 @ 14:[address] Yonis Ruvalcaba MD) household members: spouse Smoking Status: Never smoker alcohol intake: current alcohol intake frequency: a few times a month HPI HPI HPI: 44-year-old female presents for colonoscopy. Patient is a history of constipation/looser stools states this been going on since her 20s. Patient states she has bowel moods about every 2 to 3 days. Patient will occasionally have some bright red blood which she had previously been for about 7 days but also noticed some blood in her urine at that time to that has resolved. Patient's urine sample was contaminated they did not give her any antibiotics and that did resolve. Patient denies any family history of colon cancer. Patient denies any chronic abdominal pain/nausea/vomiting /reflux. ROS General General: No weight change, appetite, fatigue, colon cancer, breast cancer or weakness HEENT HEENT: No difficulty swallowing, eye injury, eye surgery, swollen glands or hoarseness Endo Endocrine: No thyroid disease, diabetes mellitus, thyroid cancer, Hair loss, heat intolerance or cold intolerance Skin Skin: No rash or changing moles Musc Musculoskeletal: Yes arthritis; No back problems, rheumatoid arthritis, gout or joint pain Cardio Cardiovascular: Yes high blood pressure; No murmur, pacemaker, heart disease, atrial fibrillation, heart attack, heart stent, palpitations, shortness of breat with exertion or chest pain Psych Psychiatric: Yes anxiety; No depression or hearing voices Resp Respiratory: No shortness of breath, No sleep apnea, No cough, No COPD, Yes asthma, No emphysema and No wheezing Gastro Gastrointestinal: No abdominal pain, No nausea or vomiting, Yes diarrhea, Yes constipation, Yes blood in stool, Yes acid reflux, No hemorrhoids, No ulcers, No gallbladder problem and No black,tarry stools [place]ino Hematologic: No blood thinners, No blood disorders, No bleeding, No anemia and Yes blood clots Additional Details: h/o small blood clots in 20's Neuro Neurologic: No system reviewed and no additional complaints, except as documented, No as per HPI, No abnormal gait, No abnormal hearing, No abnormal movements, No abnormal speech, No behavioral changes, No burning sensations, No confusion, No convulsions, No disequilibrium, No dizziness, No localized weakness, No frequent falls, No headache(s), No lack of coordination, No loss of vision, No memory loss, Yes numbness, No other visual disturbances, No radicular pain, No restless legs, No sensory deficit, No syncope, Yes tingling, No tremor(s), No weakness and No other Exam Const General: cooperative, healthy appearing, comfortable and no acute distress [facility] Head: normocephalic and atraumatic Neck Neck: supple Resp Effort Inspection: normal respiratory effort Cardio Rate: regular rate GI Inspection: non-distended Palpation: soft and nontender (more content not included)... Normal [facility] Urine Cultureon 02-15-2024 URC Mixed Gram Positive Organisms Nunnelly Count 11,000-25,000 MIXC Mixed contaminants. Submit a new specimen if indicated. Normal [facility] Comment on above: Performed By: #### M 100.2200 #### [facility] [address] [place], [place] [address] [facility] [place], [address] Basophil percentageOrdered B y: Andrei Webster on 05-18-2023 Basophil percentage < 0.9 mg/dL 0.55-1.02 [facility] No Panel InformationOrdered By: Andrei Webster on 05-18-2023 Bedside Estimated GFR (eGFR) > 60.0000 mL/min >60 [facility] Absolute lymphocyte countOrd ered By: Dr. Ruvalcaba on 03-17-2023 Lymphocytes Auto (Unsp spec) [#/Vol] 2.05 10*3/uL 0.83-4.51 [facility] Basophil percentageOrdered B y: Dr. Ruvalcaba on 03-17-2023 Basophils/100 WBC (Bld) 0.4 % 0-1 [facility] Chloride [Moles/Vol] 104 mmol/L 98-107 [facility] Eosinophils/100 WBC (Bld) 3.5 % 0-5 [facility] Glucose [Mass/Vol] 111 mg/dL 74-106 [facility] Comment on above: Fasting Glucose resu lt from 100 to 125 mg/dL suggests IMPAIRED HOMEOSTASIS per A.D.A. criteria. Neutrophils (Bld) [#/Vol] 5.4 10*3/uL 2.0-7.7 [facility] Neutrophils/100 WBC (Bld) 65.5 % 47-70 [facility] Potassium [Moles/Vol] 3.6 mmol/L 3.5-5.1 [facility] Sodium [Moles/Vol] 137 mmol/L 136-145 [facility] WBC (Bld) [#/Vol] 8.3 10*3/uL 4.4-11.0 [facility] Blood erythrocytes count (nu mber/volume)Ordered By: Dr. Ruvalcaba on 03-17-2023 RBC (Bld) [#/Vol] 5.11 10*6/uL 4.2-5.4 [facility] Blood hemoglobin measurement (mass/volume)Ordered By: Dr. Ruvalcaba on 03-17-2023 Hemoglobin (Bld) [Mass/Vol] 14.6 g/dL 12.0-15.0 [facility] Blood lymphocytes/100 leukoc ytesOrdered By: Dr. Ruvalcaba on 03-17-2023 Lymphocytes/100 WBC (Bld) 24.8 % 19-41 [facility] Blood monocytes/100 leukocyt esOrdered By: Dr. Ruvalcaba on 03-17-2023 Monocytes/100 WBC (Bld) 5.4 % 0-10 [facility] Blood platelet mean volumeOr dered By: Dr. Ruvalcaba on 03-17-2023 Platelet mean volume (Bld) [Entitic vol] 9.9 fL 6.2-12.0 [facility] Determination of erythrocyte mean corpuscular volume (MCV)Ordered By: Dr. Ruvalcaba on 03-17-2023 MCV (RBC) [Entitic vol] 87.1 fL 81-99 [facility] Hematocrit Auto (Bld) [Volum e fraction]Ordered By: Dr. Ruvalcaba on 03-17-2023 Hematocrit (Bld) [Volume fraction] 44.5 % 37-47 [facility] - Chemistry and C hemistry - challengeOrdered By: Dr. Ruvalcaba on 03-17-2023 CO2 [Moles/Vol] 29.0 mmol/L 21.0-32.0 [facility] Urea nitrogen/Creatinine [Mass ratio] 13.4 mg/mg 10-20 [facility] - Hematology and Cell countsOrdered By: Dr. Ruvalcaba on 03-17-2023 Erythrocyte distribution width (RBC) [Entitic vol] 38.3 fL 35.1-43.9 [facility] Erythrocyte distribution width (RBC) [Ratio] 12.0 % 11.6-14.6 [facility] Immature granulocytes/100 WBC (Bld) 0.400 % 0.0-0.9 [facility] Comment on above: IG% - Immature Granu locytes (promyelocytes, myelocytes and metamyelocytes) > 1% indicates that a LEFT SHIFT is Present. MCH (RBC) [Entitic mass] 28.6 pg 27.0-32.0 [facility] Nucleated RBC/100 WBC (Bld) [Ratio] 0 % 0-5 [facility] MCHC Auto (RBC) [Mass/Vol]Or dered By: Dr. Ruvalcaba on 03-17-2023 MCHC (RBC) [Mass/Vol] 32.8 g/dL 32-36 [facility] No Panel InformationOrdered By: Dr. Ruvalcaba on 03-17-2023 Troponin I High Sensitivity 4 pg/mL 3.0-54.0 [facility] Comment on above: Please Note: New Kimberly t Units and Gender Specific Reference Ranges. For more information see Policy Stat Procedure [place] High Sensitivity Troponin (TNIH) and attachments. D-Dimer Quantitative (PE/DVT) 0.27 FEU/ug/m 0.27-0.49 [facility] Comment on above: NORMAL D-Dimer level (<0.50) indicates no DVT or PE. Estimated Creatinine Clearance Calc 72.42 ml/min [facility] Estimated GFR (MDRD) Amer 98 mL/min >60 [facility] Comment on above: GFR Calc Estimated GFR (MDRD) Non-Af Amer 81 mL/min >60 [facility] Comment on above: Non- GFR Calc Platelets bldOrdered By: Dr. Ruvalcaba on 03-17-2023 Platelets (Bld) [#/Vol] 302 10*3/uL 150-450 [facility] Serum or plasma calcium venkatesh urement (mass/volume)Ordered By: Dr. Ruvalcaba on 03-17-2023 Calcium [Mass/Vol] 9.1 mg/dL 8.5-10.1 [facility] Serum or plasma creatinine m easurement (mass/volume)Ordered By: Dr. Ruvalcaba on 03-17-2023 Creatinine [Mass/Vol] 0.82 mg/dL 0.55-1.02 [facility] Comment on above: The validity of the calculated GFR & GFRAA in patients over 70 years has not been determined. Clinical correlation is essential. Serum or plasma urea nitroge n measurement (mass/volume)Ordered By: Dr. Ruvalcaba on 03-17-2023 Urea nitrogen [Mass/Vol] 11 mg/dL 7-18 [facility] Thin prep Papanicolaou smear with manual screeningOrdered By: Dr. Ruvalcaba on 03-17-2023 Thin prep Papanicolaou smear with manual screening 4 -15 [facility] Absolute lymphocyte countOrd ered By: Dr. Narayanan on 12-20-2022 Lymphocytes Auto (Unsp spec) [#/Vol] 1.49 10*3/uL 0.83-4.51 [facility] Basophil percentageOrdered B y: Dr. Narayanan on 12-20-2022 Basophils/100 WBC (Bld) 0.3 % 0-1 [facility] Bilirubin [Mass/Vol] 0.60 mg/dL 0.20-1.00 [facility] Comment on above: For patients on eltr ombopag therapy, use of Dimension [place] TBIL is not recommended. Chloride [Moles/Vol] 106 mmol/L 98-107 [facility] Cholesterol [Mass/Vol] 137 mg/dL <200 [facility] Comment on above: <200 mg/dL Desirable 200-240 mg/dL Borderline >240 mg/dL High Risk Eosinophils/100 WBC (Bld) 2.6 % 0-5 [facility] Glucose [Mass/Vol] 91 mg/dL 74-106 [facility] Neutrophils (Bld) [#/Vol] 3.6 10*3/uL 2.0-7.7 [facility] Neutrophils/100 WBC (Bld) 62.7 % 47-70 [facility] Potassium [Moles/Vol] 3.6 mmol/L 3.5-5.1 [facility] Protein [Mass/Vol] 7.6 g/dL 6.4-8.2 [facility] Sodium [Moles/Vol] 139 mmol/L 136-145 [facility] Triglyceride [Mass/Vol] 72 mg/dL <199 [facility] Comment on above: The drugs N-Acetylcy steine and Metamizole may falsely depress this assay.Serum Triglycerides Reference Interval Normal <150 mg/dL Borderline high 150 - 199 mg/dL High 200 - 499 mg/dL Very High > or = 500 mg/dL WBC (Bld) [#/Vol] 5.8 10*3/uL 4.4-11.0 [facility] Blood erythrocytes count (nu mber/volume)Ordered By: Dr. Narayanan on 12-20-2022 RBC (Bld) [#/Vol] 5.20 10*6/uL 4.2-5.4 [facility] Blood hemoglobin measurement (mass/volume)Ordered By: Dr. Narayanan on 12-20-2022 Hemoglobin (Bld) [Mass/Vol] 14.7 g/dL 12.0-15.0 [facility] Blood lymphocytes/100 leukoc ytesOrdered By: Dr. Narayanan on 12-20-2022 Lymphocytes/100 WBC (Bld) 25.7 % 19-41 [facility] Blood monocytes/100 leukocyt esOrdered By: Dr. Narayanan on 12-20-2022 Monocytes/100 WBC (Bld) 8.4 % 0-10 [facility] Blood platelet mean volumeOr dered By: Dr. Narayanan on 12-20-2022 Platelet mean volume (Bld) [Entitic vol] 10.3 fL 6.2-12.0 [facility] Determination of erythrocyte mean corpuscular volume (MCV)Ordered By: Dr. Narayanan on 12-20-2022 MCV (RBC) [Entitic vol] 89.2 fL 81-99 [facility] Hematocrit Auto (Bld) [Volum e fraction]Ordered By: Dr. Narayanan on 12-20-2022 Hematocrit (Bld) [Volume fraction] 46.4 % 37-47 [facility] Laboratory - Chemistry and C hemistry - challengeOrdered By: Dr. Narayanan on 12-20-2022 ALP [Catalytic activity/Vol] 57 U/L 45-117 [facility] ALT [Catalytic activity/Vol] 47 U/L 13-56 [facility] CO2 [Moles/Vol] 25.0 mmol/L 21.0-32.0 [facility] Globulin (S) [Mass/Vol] 4.1 g/dL 2.2-4.2 [facility] Urea nitrogen/Creatinine [Mass ratio] 11.4 mg/mg 10-20 [facility] Laboratory - Hematology and Cell countsOrdered By: Dr. Narayanan on 12-20-2022 Erythrocyte distribution width (RBC) [Entitic vol] 39.3 fL 35.1-43.9 [facility] Erythrocyte distribution width (RBC) [Ratio] 11.9 % 11.6-14.6 [facility] Immature granulocytes/100 WBC (Bld) 0.300 % 0.0-0.9 [facility] Comment on above: IG% - Immature Granu locytes (promyelocytes, myelocytes and metamyelocytes) > 1% indicates that a LEFT SHIFT is Present. MCH (RBC) [Entitic mass] 28.3 pg 27.0-32.0 [facility] Nucleated RBC/100 WBC (Bld) [Ratio] 0 % 0-5 [facility] MCHC Auto (RBC) [Mass/Vol]Or dered By: Dr. Narayanan on 12-20-2022 MCHC (RBC) [Mass/Vol] 31.7 g/dL 32-36 [facility] No Panel InformationOrdered By: Dr. Narayanan on 12-20-2022 Estimated GFR (MDRD) Amer 101 mL/min >60 [facility] Comment on above: GFR Calc Estimated GFR (MDRD) Non-Af Amer 84 mL/min >60 [facility] Comment on above: Non- GFR Calc Platelets bldOrdered By: Dr. Narayanan on 12-20-2022 Platelets (Bld) [#/Vol] 345 10*3/uL 150-450 [facility] Serum or plasma albumin venkatesh urement (mass/volume)Ordered By: Dr. Narayanan on 12-20-2022 Albumin [Mass/Vol] 3.5 g/dL 3.2-5.0 [facility] Serum or plasma albumin/glob ulin mass ratioOrdered By: Dr. Narayanan on 12-20-2022 Albumin/Globulin [Mass ratio] 0.9 {ratio} 0.9-2.4 [facility] Serum or plasma calcium venkatesh urement (mass/volume)Ordered By: Dr. Narayanan on 12-20-2022 Calcium [Mass/Vol] 8.4 mg/dL 8.5-10.1 [facility] Serum or plasma cholesterol in HDL measurement (mass/volume)Ordered By: Dr. Narayanan on 12-20-2022 Cholesterol in HDL [Mass/Vol] 44 mg/dL >40 [facility] Comment on above: The drugs N-Acetylcy steine and Metamizole may falsely depress this assay. Reference Range HDL <40 mg/dL Low HDL Cholesterol HDL >or= 60 mg/dL High HDL Cholesterol Serum or plasma cholesterol in VLDL measurement (mass/volume)Ordered By: Dr. Narayanan on 12-20-2022 Cholesterol in VLDL [Mass/Vol] 14 mg/dL 5-40 [facility] Serum or plasma creatinine m easurement (mass/volume)Ordered By: Dr. Narayanan on 12-20-2022 Creatinine [Mass/Vol] 0.79 mg/dL 0.55-1.02 [facility] Comment on above: The validity of the calculated GFR & GFRAA in patients over 70 years has not been determined. Clinical correlation is essential. Serum or plasma low density lipoprotein (LDL) cholesterol measurement (mass/volume)Ordered By: Dr. Narayanan on 12-20-2022 Cholesterol in LDL [Mass/Vol] 79 mg/dL 0-130 [facility] Serum or plasma urea nitroge n measurement (mass/volume)Ordered By: Dr. Narayanan on 12-20-2022 Urea nitrogen [Mass/Vol] 9 mg/dL 7-18 [facility] Thin prep Papanicolaou smear with manual screeningOrdered By: Dr. Narayanan on 12-20-2022 Thin prep Papanicolaou smear with manual screening 27 U/L 15-37 [facility] Thin prep Papanicolaou smear with manual screening 8 5-15 [facility] Absolute lymphocyte counton 07-30-2022 Lymphocytes Auto (Unsp spec) [#/Vol] 1.95 10*3/uL 0.83-4.51 [facility] Work Phone: Basophil percentageon 2021 Basophils/100 WBC (Bld) 0.3 % 0-1 [facility] Work Phone: Chloride [Moles/Vol] 108 mmol/L 98-107 [facility]: Eosinophils/100 WBC (Bld) 3.7 % 0-5 [facility] Work Phone: Glucose [Mass/Vol] 95 mg/dL 74-106 [facility] Work Phone: Neutrophils (Bld) [#/Vol] 4.9 10*3/uL 2.0-7.7 [facility] Work Phone: Neutrophils/100 WBC (Bld) 63.9 % 47-70 [facility] Work Phone: Potassium [Moles/Vol] 3.6 mmol/L 3.5-5.1 [facility] Work Phone: Sodium [Moles/Vol] 140 mmol/L 136-145 [facility] Work Phone: WBC (Bld) [#/Vol] 7.6 10*3/uL 4.4-11.0 [facility] Work Phone: [phone] Blood erythrocytes count (nu mber/volume)on 07-30-2022 RBC (Bld) [#/Vol] 4.93 10*6/uL 4.2-5.4 [facility] Work Phone: Blood hemoglobin measurement (mass/volume)on 07-30-2022 Hemoglobin (Bld) [Mass/Vol] 14.3 g/dL 12.0-15.0 [facility] Work Phone: Blood lymphocytes/100 leukoc yteson 07-30-2022 Lymphocytes/100 WBC (Bld) 25.6 % 19-41 [facility] Work Phone: Blood monocytes/100 leukocyt eson 07-30-2022 Monocytes/100 WBC (Bld) 6.4 % 0-10 [facility] Work Phone: Blood platelet mean volumeon 07-30-2022 Platelet mean volume (Bld) [Entitic vol] 9.7 fL 6.2-12.0 [facility] Work Phone: Determination of erythrocyte mean corpuscular volume (MCV)on 07-30-2022 MCV (RBC) [Entitic vol] 87.0 fL 81-99 [facility] Work Phone: Hematocrit Auto (Bld) [Volum e fraction]on 07-30-2022 Hematocrit (Bld) [Volume fraction] 42.9 % 37-47 [facility] Work Phone: Laboratory - Chemistry and C hemistry - challengeon 07-30-2022 CO2 [Moles/Vol] 26.0 mmol/L 21.0-32.0 [facility] Work Phone: Urea nitrogen/Creatinine [Mass ratio] 21.4 mg/mg 10- [facility] Work Phone: Laboratory - Hematology and Cell countson 07-30-2022 Erythrocyte distribution width (RBC) [Entitic vol] 38.5 fL 35.1-43.9 [facility] Work Phone: Erythrocyte distribution width (RBC) [Ratio] 12.2 % 11.6-14.6 [facility] Work Phone: Immature granulocytes/100 WBC (Bld) 0.100 % 0.0-0.9 [facility] Work Phone: Comment on above: IG% - Immature Granu locytes (promyelocytes, myelocytes and metamyelocytes) > 1% indicates that a LEFT SHIFT is Present. MCH (RBC) [Entitic mass] 29.0 pg 27.0-32.0 [facility] Work Phone: Nucleated RBC/100 WBC (Bld) [Ratio] 0 % 0-5 [facility] Work Phone: MCHC Auto (RBC) [Mass/Vol]on 07-30-2022 MCHC (RBC) [Mass/Vol] 33.3 g/dL 32-36 [facility] Work Phone: No Panel Informationon 07-30 D-Dimer Quantitative (PE/DVT) 0.36 FEU/ug/m 0.27-0.49 [facility] Work Phone: Comment on above: NORMAL D-Dimer level (<0.50) indicates no DVT or PE. Estimated Creatinine Clearance Calc 85.72 ml/min [facility] Work Phone: Estimated GFR (MDRD) Amer 117 mL/min >60 [facility] Work Phone: Comment on above: GFR Calc Estimated GFR (MDRD) Non-Af Amer 97 mL/min >60 [facility] Work Phone: Comment on above: Non- GFR Calc Platelets bldon 07-30-2022 Platelets (Bld) [#/Vol] 301 10*3/uL 150-450 [facility] Work Phone: Serum or plasma calcium venkatesh urement (mass/volume)on 07-30-2022 Calcium [Mass/Vol] 8.7 mg/dL 8.5-10.1 [facility] Work Phone: Serum or plasma creatinine m easurement (mass/volume)on 07-30-2022 Creatinine [Mass/Vol] 0.70 mg/dL 0.55-1.02 [facility] Work Phone: Comment on above: The validity of the calculated GFR & GFRAA in patients over 70 years has not been determined. Clinical correlation is essential. Serum or plasma urea nitroge n measurement (mass/volume)on 07-30-2022 Urea nitrogen [Mass/Vol] 15 mg/dL 7-18 [facility] Work Phone: Thin prep Papanicolaou smear with manual screeningon 07-30-2022 Thin prep Papanicolaou smear with manual screening 6 5-15 [facility] Work Phone: Vital Signs Date Time Vital Sign Value Performing Clinician Facility 05-30-2023 07:59-0400 Body height 162.6 cm Andrei Webster MD Work Phone: [facility] 05-30-2023 07:59-0400 Body mass index (BMI) [Ratio] 42.43 kg/m2 Andrei Webster MD Work Phone: [facility] 05-30-2023 07:59-0400 Body temperature 98.1 [degF] Andrei Webster MD Work Phone: [facility] 05-30-2023 07:59-0400 Body weight 112.13 kg Andrei Webster MD Work Phone: [facility] 05-02-2023 07:52-0400 Body height 162.6 cm Andrei Webster MD Work Phone: [facility] 05-02-2023 07:52-0400 Body mass index (BMI) [Ratio] 42.74 kg/m2 Andrei Webster MD Work Phone: [facility] 05-02-2023 07:52-0400 Body temperature 97.39 [degF] Andrei Webster MD Work Phone: [facility] 05-02-2023 07:52-0400 Body weight 112.95 kg Andrei Webster MD Work Phone: [facility] 03-21-2023 08:57-0400 Body height 162.6 cm Andrei Webstre MD Work Phone: [facility] 03-21-2023 08:57-0400 Body mass index (BMI) [Ratio] 42.05 kg/m2 Andrei Webster MD Work Phone: [facility] 03-21-2023 08:57-0400 Body temperature 97.59 [degF] Andrei Webster MD Work Phone: [facility] 03-21-2023 08:57-0400 Body weight 111.13 kg Andrei Webster MD Work Phone: [facility] 03-17-2023 16:54-0400 Diastolic blood pressure 82 mm[Hg] Dr. Alize Narayanan Work Phone: [facility] 03-17-2023 16:54-0400 Systolic blood pressure 128 mm[Hg] Dr. Alize Narayanan Work Phone: [facility] 03-17-2023 16:00-0400 Heart rate 89 /min Dr. Alize Narayanan Work Phone: [facility] 03-17-2023 16:00-0400 Respiratory rate 17 /min Dr. Alize Narayanan Work Phone: [facility] 03-17-2023 16:00-0400 SaO2% (BldA) [Mass fraction] 97 % Dr. Alize Narayanan Work Phone: [facility] 03-17-2023 13:55-0400 Body mass index (BMI) [Ratio] 44.2 kg/m2 Dr. Alize Narayanan Work Phone: [facility] 03-17-2023 13:55-0400 Body weight 113.[address] Alize Narayanan Work Phone: [facility] 03-17-2023 13:41-0400 Body height 160.[address] Alize Narayanan Work Phone: [facility] 03-17-2023 13:41-0400 Body temperature 97.8 [degF] Dr. Alize Narayanan Work Phone: [facility] 12-07-2022 08:02-0500 Body temperature 98 [degF] Dr. Alize Narayanan Work Phone: [facility] 12-07-2022 08:02-0500 Diastolic blood pressure 80 mm[Hg] Dr. Alize Narayanan Work Phone: [facility] 12-07-2022 08:02-0500 Heart rate 136 /min Dr. Alize Narayanan Work Phone: [facility] 12-07-2022 08:02-0500 Respiratory rate 16 /min Dr. Alize Narayanan Work Phone: [facility] 12-07-2022 08:02-0500 SaO2% (BldA) [Mass fraction] 98 % Dr. Alize Narayanan Work Phone: [facility] 12-07-2022 08:02-0500 Systolic blood pressure 124 mm[Hg] Dr. Alize Narayanan Work Phone: [facility] 07-30-2022 15:25-0400 Respiratory rate 16 /min [facility] Work Phone: 07-30-2022 14:05-0400 Diastolic blood pressure 94 mm[Hg] [facility] Work Phone: 07-30-2022 14:05-0400 Heart rate 90 /min [facility] Work Phone: 07-30-2022 14:05-0400 SaO2% (BldA) [Mass fraction] 99 % [facility] Work Phone: 07-30-2022 14:05-0400 Systolic blood pressure 158 mm[Hg] [facility] Work Phone: 07-30-2022 13:55-0400 Body height 160.02 cm [facility] Work Phone: 07-30-2022 13:55-0400 Body mass index (BMI) [Ratio] 42.6 kg/m2 [facility] Work Phone: 07-30-2022 13:55-0400 Body temperature 98.2 [degF] [facility] Work Phone: 07-30-2022 13:55-0400 Body weight 109.22 kg [facility] Work Phone: Encounters Encounter Date Encounter Type Care Provider Facility Start: 10-09-2024 End: 10-09-2024 ambulatory Alize Malys Facility:[facility] Start: 07-02-2024 End: 07-06-2024 ambulatory VINCENZO HERNÁNDEZ [facility] Start: 06-05-2024 Encounter for genera l adult medical examination with abnormal findings Ciera Ray [facility] Start: 06-01-2024 End: 06-01-2024 ambulatory Ciera Ray Facility:[facility] Start: 05-01-2024 End: 05-01-2024 ambulatory Alize Malys Facility:[facility] Start: 02-29-2024 End: 02-29-2024 ambulatory Al[place] Malys [facility] Start: 02-13-2024 End: 02-13-2024 ambulatory Alize Malys Facility:[facility] Start: 10-12-2023 End: 10-12-2023 ambulatory [facility] Work Phone: Start: 10-12-2023 End: 10-12-2023 Patient encounter procedure [facility] Work Phone: Start: 08-03-2023 Orders Only Andrei seo MD Work Phone: [facility] Comment on above: Seasonal allergic rh initis, unspecified trigger (Primary Dx) Start: 05-30-2023 End: 05-30-2023 Office outpatient visit 25 minutes Andrei Webster MD Work Phone: [facility] [place] Comment on above: Sensorineural hearin g loss, unilateral, right ear, with restricted hearing on the contralateral side (Primary Dx); Subjective tinnitus of both ears Start: 05-20-2023 End: 05-21-2023 ambulatory PROVIDER NOT IN SYSTEM [facility] Start: 05-18-2023 End: 05-18-2023 ambulatory [facility] Work Phone: Start: 05-18-2023 End: 05-18-2023 Patient encounter procedure [facility] Work Phone: Start: 05-02-2023 End: 05-06-2023 ambulatory ANDREI WEBSTER [facility] Start: 05-02-2023 End: 05-02-2023 Clinical Support Vincenzo Ovalle Work Phone: [facility] Comment on above: Sensorineural hearin g loss, bilateral (Primary Dx); Hearing loss of right ear, unspecified hearing loss type Start: 05-02-2023 End: 05-02-2023 Office outpatient visit 25 minutes Andrei Webster MD Work Phone: [facility] Comment on above: Sensorineural hearin g loss, unilateral, right ear, with restricted hearing on the contralateral side (Primary Dx); Hearing loss of right ear, unspecified hearing loss type; Osteoma of external ear canal Start: 03-21-2023 End: 03-21-2023 Office outpatient new 45 minutes Tono Reillyrose mary AdenLissa Work Phone: [facility] Comment on above: Seasonal allergic rh initis due to pollen (Primary Dx); BPPV (benign paroxysmal positional vertigo), right; Hearing loss of right ear, unspecified hearing loss type; Osteoma of external ear canal Start: 03-17-2023 End: 03-17-2023 Emergency department patient visit Dr. Alize Narayanan Work Phone: [facility]-Emergency Department Start: 12-20-2022 End: 12-20-[address] Alize Narayanan Work Phone: [facility] Work Phone: Start: 12-20-2022 End: 12-20-[address] Alize Narayanan [facility] Phone[facility] Start: 12-07-2022 End: 12-07-[address] Alize Narayanan Work Phone: [facility] Start: 11-01-2022 End: 11-01-[address] Alize Narayanan Work Phone: [facility]Occ[facility]ational [facility] Start: 07-30-2022 End: 07-30-2022 Emergency department patient visit [facility] Start: 03-17-[address] [facility] Procedures Date Procedure Procedure Detail Performing Clinician Start: 05-18-2023 MRI of brain with contrast Start: 03-17-2023 Plain chest X-ray Dr. Bert Narayanan Work Phone: Start: 07-30-2022 Plain chest X-ray Plan of Treatment Date Care Activity Detail Author Start: 03-17-2031 Tetanus vaccination Tetanus: Every 1 0yrs [facility] Start: 05-28-2024 End: 05-28-2024 Patient encounter procedure [facility] Start: 06-03-2023 COVID-19 Vaccine ( season) COVID-19 Vaccine () [facility] Start: 06-03-2023 Influenza vaccination [facility] Start: 05-30-2023 End: 05-30-2023 Patient encounter procedure 05/30/2023 8:00 AM EDT Office Visit [facility] [address] [place] [id number] Andrei Webster MD [address] [place] [id number] [facility] Start: 05-02-2023 End: 05-02-2023 Patient encounter procedure [facility] Start: 03-17-2023 [facility] Start: 12-11-2021 COVID-19 Vaccine (4 - Moderna series) COVID-19 Vaccine (4 - Moderna series) [facility] Start: 2019 Screening for malign ant neoplasm of breast Mammogram [facility] Start: 02-09-2000 Screening for malign ant neoplasm of cervix Pap Smear [facility] Start: 1997 Hepatitis C screening Hepatitis C Sc reening [facility] Start: 1994 HIV screening HIV Screening [facility] Start: 1991 Depression screening using PHQ-9 (Patient Health Questionnaire 9) score Depression Screening (PHQ-2/9) [facility] Start: 1982 History and physical examination, annual for health maintenance Wellness Visit [facility] Start: 1979 Screening for malign ant neoplasm of cervix Pap Smear [facility] End: 05-02-2024 Creatinine [Mass/volume] in Serum or Plasma Creatinine, Serum Lab Routine Sensorineural hearing loss, unilateral, right ear, with restricted hearing on the contralateral side 1 Occurrences starting 05/02/2023 until 05/02/2024 [facility] Comment on above: 1 Occurrences starti ng 05/02/2023 until 05/02/2024 Creatinine [Mass/vol ume] in Serum or Plasma Creatinine, Serum Lab Routine Sensorineural hearing loss, unilateral, right ear, with restricted hearing on the contralateral side 05/02/2023 9:09 AM EDT [facility] End: 05-02-2024 MRI of head MR IAC With And Without Contrast Imaging Routine Sensorineural hearing loss, unilateral, right ear, with restricted hearing on the contralateral side 1 Occurrences starting 05/02/2023 until 05/02/2024 [facility] Work Phone: Comment on above: 1 Occurrences starti ng 05/02/2023 until 05/02/2024 Patient Education [facility] Work Phone: Patient referral [facility] Work Phone: Immunizations Immunization Date Immunization Notes Care Provider [facility] 03-17-2021 tetanus toxoid, redu yary diphtheria toxoid, and acellular pertussis vaccine, adsorbed [facility] 07-23-2013 Influenza virus vaccine [facility] Payers Date Payer Category Payer Unknown [id number] 2024 Self-pay [id number] 2012 Unknown [facility] U[facility] [employer] CE PLUS [id number] 2012-Present [phone] [address] [address] [place] [address] [id number] 2012 Unknown [id number] 1979 Unknown [id number] 1979 Unknown [id number] 1979 Unknown [id number] 1979 Unknown [id number] Unknown [id number] Unknown [id number] Unknown [id number] Unknown [id number] Unknown [id number] Unknown [id number] Social History Date Type Detail Facility Start: 07-30-2022 End: 03-17-2023 Tobacco smoking status [facility] Unknown if ever smoked [facility] Start: 12-18-2020 Non-smoker [facility] Start: 1980 Sex Assigned At Female [facility] Start: 03-21-2023 Tobacco smoking status RIIS Never smoked tobacco [facility] Start: 03-21-2023 Tobacco use and exposure Smokeless tobacco non-user [facility] Start: 03-21-2023 End: 05-30-2023 Alcohol intake Current drinker of alcohol (finding) [facility] Start: 1980 Sex Assigned At Not on file [facility] Start: 03-21-2023 End: 05-30-2023 Gender identity Not on file [facility] Start: 03-21-2023 End: 05-30-2023 History of Social function [facility] NEGATED: Highlighted row [facility] Work Phone: NEGATED: Highlighted row [facility] Medical Equipment Procedure Code Equipment Code Equipment Origin al Text Equipment Identifier Dates Robot-assisted total abdominal hysterectomy with bilateral salpingo-oophorectomy ([facility]GRM HEMOSTAT ABS FDA Start: 11-02-2018 Robot-assisted total abdominal hysterectomy with bilateral salpingo-oophorectomy ([facility]M HEMOSTAT ABS FDA Start: 11-02-2018 Robot-assisted total abdominal hysterectomy with bilateral salpingo-oophorectomy ([facility]M HEMOSTAT ABS FDA Start: 11-02-2018 Robot-assisted total abdominal hysterectomy with bilateral salpingo-oophorectomy ([facility]M HEMOSTAT ABS FDA Start: 11-02-2018 Robot-assisted total abdominal hysterectomy with bilateral salpingo-oophorectomy ([facility] HEMOSTAT ABS FDA Start: 11-02-2018 Clinical Notes 03-21-2023 to 07-02-2024 Andrei Webster MD - 05/30/2023 8:12 AM Laisha Ferrara MA - 05/30/2023 8:00 AM Vincenzo Colvin AuD - 05/02/2023 8:12 AM Andrei Melendez MD - 05/02/2023 8:06 AM EDT Note Date & Type Note Facility 07-02-2024 Note [facility] [address] [facility] [address] [facility] [address] Dept: [phone] MD Elaine Rolon 44 y.o. female Patient presents with a chief complaint of 1 yr f/u tinnitus with audio Ht 5' 4 Wt 104.6 kg (230 lb 8 oz) BMI 39.57 kg/m History of Presenting Illness: The patient/caregiver reports a history of complaint with the following features: She presents for follow-up of her tinnitus. This remains mildly in her right ear. 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 This does impair her communication a bit if her provider is behind a shield, but otherwise there is no restriction. Review of systems covering 10 systems is reviewed and pertinent positives and negatives are noted as above. Past Medical History: Diagnosis Date Allergic rhinitis Current Outpatient Medications: albuterol sulfate 90 mcg/actuation aebs, Inhale ., Disp: , Rfl: loratadine (CLARITIN) 10 mg tablet, Take 1 (one) tablet (10 mg total) by mouth daily ., Disp: 30 tablet, Rfl: 11 losartan-hydrochlorothiazide (HYZAAR) 50-12.5 mg per tablet, Take 1 (one) tablet by mouth daily ., Disp: , Rfl: meloxicam (MOBIC) 15 MG tablet, Take 1 (one) tablet (15 mg total) by mouth daily ., Disp: , Rfl: montelukast (SINGULAIR) 10 mg tablet, Take 1 (one) tablet (10 mg total) by mouth daily ., Disp: , Rfl: MULTIVITAMIN ORAL, Take by mouth ., Disp: , Rfl: phentermine 37.5 MG capsule, Take by mouth daily ., Disp: , Rfl: topiramate (TOPAMAX) 25 MG tablet, Take 1 (one) tablet (25 mg total) by mouth nightly ., Disp: , Rfl: fluticasone propionate (FLONASE) 50 mcg/actuation nasal spray, Instill 2 (two) sprays into each nostril daily ., Disp: 16 mL, Rfl: [address]: Iodinated Contrast- Oral And Iv Dye Anaphylaxis Shellfish Derived Anaphylaxis Past Surgical History: Procedure Laterality Date CHOLECYSTECTOMY 02/22/2007 HYSTERECTOMY 2020 Social History Socioeconomic History Marital status: Tobacco Use Smoking status: Never Smokeless tobacco: Never Substance and Sexual Activity Alcohol use: Yes Drug use: Never History reviewed. No pertinent family history. PHYSICAL EXAM: The patient was examined today 07/02/2024 with findings as follows: CONSTITUTIONAL: General Appearance: well-appearing, nontoxic, alert, no acute distress Communication: normal voicing, hearing intact to spoken voice HEAD/FACE: Head: atraumatic, normocephalic, no lesions Facial Inspection: no lesions, healthy skin Facial Strength: motor strength normal, symmetric strength, symmetric movement EYES: Pupils: PERRLA, extra-ocular movements intact, no nystagmus, sclera white, no redness of eyes, no watering of eyes EARS: Bilateral External Ears: no pits, no tags Right External Ear: normally formed, no lesions, no mastoid tenderness Left External Ear: normally formed, no lesions, no mastoid tenderness Right External Auditory Canal: normal, healthy skin with mucoid debris trail, no obstructing cerumen, no discharge Left External Auditory Canal: normal, healthy skin, no obstructing cerumen, no discharge, osteoma of anterior superior canal Right Tympanic Membrane: normal landmarks, patchy tympanosclerosis Left Tympanic Membrane: normal landmarks, patchy tympanosclerosis Hearing: intact to spoken voice NECK: Neck: no masses, trachea midline, normal range of motion, no cysts or pits, no tenderness to palpation LYMPH NODES: Cervical: no palpable lymph node enlargement SKIN: General Appearance: no lesions, warm and dry, normal turgor, no bruising PSYCHIATRIC: Mood and affect: normal mood, normal affect Assessment and Plan: Her tinnitus has improved with increase use of noise protection in the workplace. She has a stable left canal osteoma. There is a debris trail on th right canal, but no obvious perforation or cholesteatoma. Audiometric testing is performed today and independently reviewed and interpreted. This shows a stable hearing loss slightly worse on the right with excellent speech discrimination. Tympanometry shows normal compliance consistent with normally ventilated middle ear space on the left and a large volume flat pattern on the right consistent with perforation. This is also suggested by the mucous debris trail. Observation for now given the absence of pain, drainage, or significant hearing loss. Imaging may be warranted if any of these develop over time. The patient and/or caregiver is advised on the avoidance of water exposure to the ear and mechanical trauma such as the use of cotton tipped swabs or the insertion of objects into the ear is advised. The patient and/or caregiver is to notify the office if no improvement or worsening of symptoms is noted prior to the scheduled follow-up for sooner evaluation. The patient and/or caregiver is able to state an understanding o (more content not included)... [facility] 05-01-2024 Note [facility] Medical Records Department [address] [place] [address] History Physical Exam 05/01/24 0738 MR#: [id number] Acct: [id number] Name: ELAINE APPIAH Rep #: [id number] : 1980 44 From: Jany Fam MD PCP: Dr. Alize Narayanan, DO [place] [facility] [place] [facility] HPI - General General Date of Service: 05/01/24 HPI Narrative ELAINE APPIAH, is a 44 F who presents for screening colonoscopy. Patient denies any changes since her office visit denies any more blood per rectum. office visit 02/29/24 HPI HPI: 44-year-old female presents for colonoscopy. Patient is a history of constipation/looser stools states this been going on since her 20s. Patient states she has bowel moods about every 2 to 3 days. Patient will occasionally have some bright red blood which she had previously been for about 7 days but also noticed some blood in her urine at that time to that has resolved. Patient's urine sample was contaminated they did not give her any antibiotics and that did resolve. Patient denies any family history of colon cancer. Patient denies any chronic abdominal pain/nausea/vomiting/reflux. [facility] Medical History Loss of hearing Wears glasses Anxiety Alcohol use Arthritis Low iron Easy bruising Heartburn Non-smoker Shortness of breath on exertion History of edema Hypertension Endometrioma Subcutaneous mass of abdominal wall Asthma Endometrial thickening on ultrasound Menorrhagia Home Medications ???Medication ???Instructions ???Recorded ???Last Taken ???Type albuterol sulfate 90 mcg/actuation 1 - 2 puff inhalation Q4H PRN PRN 10/26/18 Unknown History aerosol inhaler Sob /Or Wheezing montelukast 10 mg tablet 10 mg PO DAILY 12/18/20 Unknown History meloxicam 15 mg tablet 15 mg PO DAILY 12/07/22 Unknown History losartan 50 mg-hydrochlorothiazide 1 tab PO DAILY 03/17/23 Unknown History 12.5 mg tablet phentermine 37.5 mg tablet 37.5 mg PO DAILY 02/29/24 04/20/24 History ferrous sulfate 325 mg (65 mg 325 mg PO DAILY 04/26/24 Unknown History iron) tablet (Feosol) fluticasone propionate 50 2 spray intranasal DAILY 04/26/24 Unknown History mcg/actuation nasal spray,suspension loratadine 10 mg tablet 10 mg PO DAILY 04/26/24 Unknown History Allergy/AdvReac Type Severity Reaction Status Date / Time iodine Allergy Hives Verified 04/26/24 11:34 shellfish derived Allergy Anaphylaxis Verified 04/26/24 11:34 Family History Father Heart disease Hypertension Mother Heart disease Hypertension Kidney disease Surgical History History of hisory of biopsy abd mass S/P laparoscopic cholecystectomy S/P hysterectomy Social History household members: spouse Smoking Status: Never smoker alcohol intake: current alcohol intake frequency: a few times a month Past Medical/Surgical History Planned Operation Planned Operative Procedure(s): CSCOPE S.O.S: No Previous Hospitalizations/Surgeries HX Hospitalizations: No HX of Surgeries: D C GALLBLADDER W/ TUBAL hysteroscopy d c 2018 HYSTERECTOMY BSO 2019 Any Problems With Anesthesia: No You/Your Family Experience Fever (Hyperthermia) With Anes: No Cholinesterase deficiency: No Cardiovascular Hx Chest Pain within Last 2 months: No Hx of Irregular Heartbeat and/or Afib: No Hx Heart Attack: No Hx Congestive Heart Failure: No Hx Rheumatic Fever: No Hx Hypertension: Yes (CONTROLLED WITH MED) Hx Internal Defibrillator: No Hx Pacemaker: No Hx Cardiac Catheterization: No Hx Cardiac Surgery/Stents/Etc.: No Hx Stress Test: No Hx Pain in Legs when Walking/Leg Cramps: No Respiratory Chronic Cough: No HX of Shortness of Breath: Yes (slightly sob with 2 flights of stairs) Hoarseness: No Hx Chronic Obstructive Pulmonary Disease (COPD): No Hx Asthma: Yes (prn inhaler) Hx Emphysema: No Hx Sleep Apnea: No Hx Respiratory Tract Infection/Cold (presently): No Do You Snore Loudly (louder than talking or can be heard): Yes Do You Often Feel Tired/ Fatigued/ Sleepy Dring Daytime?: No Has Anyone Observed You Stop Breathing During Sleep?: No Result (for STOP score): Positive Hx Smoking: No Smoking Status: Never smoker Gastrointestinal Controlled With Meds: No (.) Hx Gastrointestinal Disorders: No Hx Gastrointestinal Bleed: No Hx Ulcer: No Hx Hiatal Hernia: No Difficulty Chewing/Swallowing: No Special diet followed at home: No Hx Unplanned Weight Loss of 20#: No HX Unplanned Weight Gain of 20#: No Neurological Hx Seizures: No HX Syncope/Blackout Spells/Unconsciousness: No Hx Transient Ischemic Attacks (TIA) (more content not included)... [facility] 05-30-2023 History of Present illness Narrative [facility] [address] [facility] [place] [address] [facility] [address] Dept: [phone] MD Elaine Rolon 43 y.o. female Patient presents with a chief complaint of Follow-up (Follow up MRI/No concerns) Temp 98.1 F (36.7 C) Ht 5' 4 Wt 112.1 kg (247 lb 3.2 oz) BMI 42.43 kg/m History of Presenting Illness: The patient/caregiver reports a history of complaint with the following features: She reports that she still has some decreased hearing on the right, but this has not worsened. She as a maternal history of hearing loss. 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 She has been wearing hearing protection at work and has noted that her ears no longer ring at the end of the day. His is more one the right [place] the left. Review of systems covering 10 systems is reviewed and pertinent positives and negatives are noted as above. Past Medical History: Diagnosis Date Allergic rhinitis Current Outpatient Medications: albuterol sulfate 90 mcg/actuation aebs, Inhale ., Disp: , Rfl: fluticasone propionate (FLONASE) 50 mcg/actuation nasal spray, Instill 2 (two) sprays into each nostril daily ., Disp: 16 mL, Rfl: 3 losartan-hydrochlorothiazide (HYZAAR) 50-12.5 mg per tablet, Take 1 (one) tablet by mouth daily ., Disp: , Rfl: meloxicam (MOBIC) 15 MG tablet, Take 1 (one) tablet (15 mg total) by mouth daily ., Disp: , Rfl: montelukast (SINGULAIR) 10 mg tablet, Take 1 (one) tablet (10 mg total) by mouth daily ., Disp: , Rfl: MULTIVITAMIN ORAL, Take by mouth ., Disp: , Rfl: Allergies Allergen Reactions Ct: Iodinated Contrast- Oral And Iv Dye Anaphylaxis Shellfish Derived Anaphylaxis Past Surgical History: Procedure Laterality Date CHOLECYSTECTOMY 02/22/2007 HYSTERECTOMY 2020 Social History Socioeconomic History Marital status: Single Tobacco Use Smoking status: Never Smokeless tobacco: Never Substance and Sexual Activity Alcohol use: Yes Drug use: Never History reviewed. No pertinent family history. PHYSICAL EXAM: The patient was examined today 05/02/2023 with findings as follows: CONSTITUTIONAL: General Appearance: well-appearing, nontoxic, alert, no acute distress Communication: understanding at normal conversational tones, normal voicing, speech intelligible HEAD/FACE: Head: atraumatic, normocephalic, no lesions Facial Inspection: no lesions, healthy skin Facial Strength: motor strength normal, symmetric strength, symmetric movement Sinuses: no sinus tenderness Salivary Glands: no enlargements of parotid glands, no tenderness of parotid glands, no masses of parotid glands, clear salivary flow on palpation from Stensen's ducts, no duct stones of Stensen's duct, no enlargement of submandibular glands, no tenderness of submandibular glands, no masses of submandibular glands, clear salivary flow from [place]'s ducts, no stones of Michael's ducts Temporomandibular Joint: no crepitus with motion, no tenderness on palpation, no trismus, motion symmetric EYES: Pupils: PERRLA, extra-ocular movements intact, no nystagmus, sclera white, no redness of eyes, no watering of eyes EARS: Bilateral External Ears: no pits, no tags Right External Ear: normally formed, no lesions, no mastoid tenderness Left External Ear: normally formed, no lesions, no mastoid tenderness Right External Auditory Canal: normal, healthy skin, no obstructing cerumen, no discharge Left External Auditory Canal: 2 mm anterior osteoma, healthy skin, no obstructing cerumen, no discharge Right Tympanic Membrane: normal landmarks, translucent, mobile to pneumatic otoscopy, no perforation Left Tympanic Membrane: normal landmarks, translucent, mobile to pneumatic otoscopy, no perforation Hearing: intact to spoken voice, intact to finger rub, Goodson midline, Right Ear: Rinne AC>BC, Left Left Ear: Rinne AC>BC NOSE: Nasal Skin: no lesions, no lacerations, no scars Nasal Dorsum: symmetric with no visible or palpable deformities Nasal Tip: normal symmetric nasal tip, normal nasal valves Nasal Mucosa: normal, pink and moist Septum: not markedly deformed, midline, no exposed vessels, no bleeding, no septal granuloma Turbinates: normal size and conformation Nasopharynx: normal ORAL CAVITY/MOUTH: Lips, teeth, gums: normal lips, normal gums, dentition intact, no dental pain on palpation Oral Mucosa: normal, moist, no lesions Palate: normal hard palate, normal soft palate, symmetric palatal elevation Floor of Mouth: normal floor of mouth Tongue: normal tongue, no lesions, no edema, no masses, normal mucosa, mobile Tonsils: normal tonsils, symmetric, no lesions Posterior pharynx: normal NECK: Neck: no masses, trachea midline, normal range of motion, no cysts or pits, no tenderness to palpation Thyroid: normal thyroid, no enlargement, no tenderness, no nodules LYMPH NODES: Cervical: no palpable lymph node enlargement SKIN: General Appearance: no lesions, warm and dry, normal turgor, no bruising NEUROLOGICAL SYSTEM: Orientation: oriented to time, oriented to place, oriented to person Cranial Nerves: Cranial Nerves II-XII intact, normal facial movement PSYCHIATRIC: Mood and affect: normal mood, normal affect Assessment and Plan: I have independently reviewed her MRI images with her today. No abnormality is noted and reassurance is offered. She has noted improvement with wearing hearing protection at work. Ongoing care to prevent excess noise exposure as the hearing loss pattern noted does have a noise type pattern is advised. Repeat hearing testing in a year is encouraged to evaluate stability. The causes of hearing loss are discussed in the context of the patient's history and exam findings. We have discussed that exposure to excess environmental noise can result in worsened symptoms and that hearing protection in high noise environments is recommended. We have discussed that hearing aids can be helpful when hearing loss is disruptive and the features of hearing loss that respond well to amplification. An appointment with the undraped artist model in the office is offered if the patient wishes to explore options in this regard. The patient and/or caregiver is able to state an understanding of these recommendations and is agreeable to the treatment plan. 1. Sensorineural hearing loss, unilateral, right ear, with restricted hearing on the contralateral side 2. Subjective tinnitus of both ears Return in about 1 year (around 05/30/2024) for Hearing test. The patient and/or caregiver is to notify the office if no improvement or worsening of symptoms is noted prior to the scheduled follow-up for sooner evaluation. The patient and/or caregiver is able to state an understanding of these recommendations and is agreeable to the treatment plan. --Andrei Webster MD on 05/30/2023 at 8:22 AM An electronic signature was used to authenticate this note. Review of Systems Constitutional: Negative. HENT: Positive for hearing loss. Eyes: Negative. Respiratory: Positive for chest tightness. Gastrointestinal: Negative. Endocrine: Negative. Genitourinary: Negative. Musculoskeletal: Negative. Skin: Negative. Allergic/Immunologic: Positive for environmental allergies and food allergies. Neurological: Negative. Hematological: Negative. Psychiatric/Behavioral: Negative. documented in this encounter [facility] 05-02-2023 History of Present illness Narrative Images from the original note were not included. [facility] [address] [address] Name: Elaine Appiah : 1980 Date: 05/02/23 History & Purpose of Evaluation: Elaine Appiah was seen today for audiologic evaluation at the request of Andrei Webster MD. Ms. Appiah reported that she first began noticing hearing loss in her right ear approximately three years ago. She commented that she may have hearing loss in the left ear as well, but it has not been as noticeable as it has in the right ear. Given the family history of hearing loss on her mothers side, she wanted to have her hearing evaluated. Please see below for other pertinent case history information as reported by Ms. Appiah. 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 Skills Ear Surgery R L Vertigo [] [x] Appropriate [x] [] PE Tubes [] [] Dizziness [] [x] In Therapy [] [x] Mastoidectomy [] [] Imbalance [] [x] Social Acoustic Neuroma [] [] Vestibular Rehab [] [x] Depression [] [x] Tympanoplasty [] [] Other: Results: Otoscopy: Performed by Dr. Webster prior to testing. Puretone Air & Bone Conduction Audiometry: Pure tone audiometry revealed a mild sensorineural hearing loss, bilaterally, right ear worse than the left ear. Speech Audiometry: Speech recognition thresholds were in good agreement with puretone averages. Word recognition was excellent (96% in the right ear and 100% in the left ear) when assessed at an above-normal conversational loudness level using recorded male voice. Immittance Audiometry: Could not test secondary to unavailable equipment. Distortion Product Otoacoustic Emissions (DPOAE; 1500-6k Hz): Did not assess. Impression: Test results revealed a mild sensorineural hearing loss bilaterally, right ear worse than the left ear. Medical evaluation for the asymmetry is recommended. Recommendations: Follow up with Dr. Webster. Further testing and/or re-evaluation at Dr. Webster' discretion. Re-evaluate in one year, or sooner if concerns arise, to monitor hearing. Use of hearing protection is recommended when in high levels of noise. The above was explained to Ms. Appiah and she expressed understanding. Electronically Signed by: Vasquez Yarbrough, [facility] 05/02/23 8:12 AM Audiogram: documented in this encounter [facility] 05-02-2023 History of Present illness Narrative [facility] [address] [facility] [place] [address] [facility] [address] Dept: [phone] Andrei Webster MD Elaine Appiah 43 y.o. female Patient presents with a chief complaint of Hearing Loss (Follow up hearing loss ) Temp 97.4 F (36.3 C) (Temporal) Ht 5' 4 Wt 112.9 kg (249 lb) BMI 42.74 kg/m History of Presenting Illness: The patient/caregiver reports a history of complaint with the following features: She reports that she still has some decreased hearing on the right, but this has not worsened. She as a maternal history of hearing loss. Her vertigo has fully resolved. The fluticasone nasal spray has helped with her nasal congestion. She recently had COVID after travel, but has recovered with treatment. Review of systems covering 10 systems is reviewed and pertinent positives and negatives are noted as above. Past Medical History: Diagnosis Date Allergic rhinitis Current Outpatient Medications: albuterol sulfate 90 mcg/actuation aebs, Inhale ., Disp: , Rfl: fluticasone propionate (FLONASE) 50 mcg/actuation nasal spray, Instill 2 (two) sprays into each nostril daily ., Disp: 16 mL, Rfl: 3 loratadine (CLARITIN) 10 mg tablet, Take 1 (one) tablet (10 mg total) by mouth daily ., Disp: 30 tablet, Rfl: 11 losartan-hydrochlorothiazide (HYZAAR) 50-12.5 mg per tablet, Take 1 (one) tablet by mouth daily ., Disp: , Rfl: meloxicam (MOBIC) 15 MG tablet, Take 1 (one) tablet (15 mg total) by mouth daily ., Disp: , Rfl: montelukast (SINGULAIR) 10 mg tablet, Take 1 (one) tablet (10 mg total) by mouth daily ., Disp: , Rfl: Allergies Allergen Reactions Ct: Iodinated Contrast- Oral And Iv Dye Anaphylaxis Shellfish Derived Anaphylaxis Past Surgical History: Procedure Laterality Date CHOLECYSTECTOMY 02/22/2007 HYSTERECTOMY 2019 Social History Socioeconomic History Marital status: Single Tobacco Use Smoking status: Never Smokeless tobacco: Never Substance and Sexual Activity Alcohol use: Yes Drug use: Never No family history on file. PHYSICAL EXAM: The patient was examined today 05/02/2023 with findings as follows: CONSTITUTIONAL: General Appearance: well-appearing, nontoxic, alert, no acute distress Communication: understanding at normal conversational tones, normal voicing, speech intelligible HEAD/FACE: Head: atraumatic, normocephalic, no lesions Facial Inspection: no lesions, healthy skin Facial Strength: motor strength normal, symmetric strength, symmetric movement Sinuses: no sinus tenderness Salivary Glands: no enlargements of parotid glands, no tenderness of parotid glands, no masses of parotid glands, clear salivary flow on palpation from Stensen's ducts, no duct stones of Stensen's duct, no enlargement of submandibular glands, no tenderness of submandibular glands, no masses of submandibular glands, clear salivary flow from [place]'s ducts, no stones of Michael's ducts Temporomandibular Joint: no crepitus with motion, no tenderness on palpation, no trismus, motion symmetric EYES: Pupils: PERRLA, extra-ocular movements intact, no nystagmus, sclera white, no redness of eyes, no watering of eyes EARS: Bilateral External Ears: no pits, no tags Right External Ear: normally formed, no lesions, no mastoid tenderness Left External Ear: normally formed, no lesions, no mastoid tenderness Right External Auditory Canal: normal, healthy skin, no obstructing cerumen, no discharge Left External Auditory Canal: 2 mm anterior osteoma, healthy skin, no obstructing cerumen, no discharge Right Tympanic Membrane: normal landmarks, translucent, mobile to pneumatic otoscopy, no perforation Left Tympanic Membrane: normal landmarks, translucent, mobile to pneumatic otoscopy, no perforation Hearing: intact to spoken voice, intact to finger rub, [place]son midline, Right Ear: Rinne AC>BC, Left Left Ear: Rinne AC>BC NOSE: Nasal Skin: no lesions, no lacerations, no scars Nasal Dorsum: symmetric with no visible or palpable deformities Nasal Tip: normal symmetric nasal tip, normal nasal valves Nasal Mucosa: normal, pink and moist Septum: not markedly deformed, midline, no exposed vessels, no bleeding, no septal granuloma Turbinates: normal size and conformation Nasopharynx: normal ORAL CAVITY/MOUTH: Lips, teeth, gums: normal lips, normal gums, dentition intact, no dental pain on palpation Oral Mucosa: normal, moist, no lesions Palate: normal hard palate, normal soft palate, symmetric palatal elevation Floor of Mouth: normal floor of mouth Tongue: normal tongue, no lesions, no edema, no masses, normal mucosa, mobile Tonsils: normal tonsils, symmetric, no lesions Posterior pharynx: normal NECK: Neck: no masses, trachea midline, normal range of motion, no cysts or pits, no tenderness to palpation Thyroid: normal thyroid, no enlargement, no tenderness, no nodules LYMPH NODES: Cervical: no palpable lymph node enlargement RESPIRATORY: Inspection/Auscultation: good air movement, chest expands symmetrically, normal breath sounds, no wheezing, no stridor CARDIOVASCULAR SYSTEM: Auscultation: regular rate and rhythm, carotid pulse normal, no carotid thrills, no carotid bruits Observation/Palpation of Peripheral Vascular System: no varicosities, no cyanosis, no edema SKIN: General Appearance: no lesions, warm and dry, normal turgor, no bruising NEUROLOGICAL SYSTEM: Orientation: oriented to time, oriented to place, oriented to person Cranial Nerves: Cranial Nerves II-XII intact, normal facial movement PSYCHIATRIC: Mood and affect: normal mood, normal affect Assessment and Plan: Audiometric testing is performed today with an asymmetric loss on the right. Speech discrimination remands good. Given her recent vertigo, imaging for a possible retrocochlear lesion is advised. The possible finding of a tumor of the hearing nerve called an acoustic neuroma and its role in the cause of the patient's symptoms is discussed. The benign, non-cancerous nature of this lesion, the likelihood of slow, or possibly no significant growth, but the possibility for becoming of large size with potential injury to the brain and its nerves is reviewed. The possibility of hearing loss, of either gradual or sudden onset, worsening balance problems, and weakness of facial movement is discussed. The management options of observation with serial MRI, gamma knife therapy, and surgical resection are discussed. A referral for neuro-otology consultation is offered. The patient/caregiver is to notify the office if no improvement or worsening of symptoms is noted prior to the scheduled follow-up for sooner evaluation. The patient/caregiver is able to state an understanding of these recommendations and is agreeable to the treatment plan. 1. Sensorineural hearing loss, unilateral, right ear, with restricted hearing on the contralateral side MR IAC With And Without Contrast Creatinine, Serum 2. Hearing loss of right ear, unspecified hearing loss type Ambulatory referral to Audiology 3. Osteoma of external ear canal Return in about 1 month (around 06/02/2023). The patient and/or caregiver is to notify the office if no improvement or worsening of symptoms is noted prior to the scheduled follow-up for sooner evaluation. The patient and/or caregiver is able to state an understanding of these recommendations and is agreeable to the treatment plan. --Andrei Webster MD on 05/02/2023 at 9:02 AM An electronic signature was used to authenticate this note. Review of Systems Constitutional: Negative. HENT: Positive for hearing loss, sinus pressure and sinus pain. Negative for tinnitus. Eyes: Negative. Cardiovascular: Positive for leg swelling. Gastrointestinal: Negative. Endocrine: Negative. Genitourinary: Negative. Musculoskeletal: Negative. Skin: Negative. Allergic/Immunologic: Positive for environmental allergies and food allergies. Neurological: Positive for headaches. Psychiatric/Behavioral: Negative. documented in this encounter [facility] 03-21-2023 Instructions Andrei Webster MD - 03/21/2023 9:19 AM EDT BENIGN PAROXYSMAL POSITIONAL VERTIGO (BPPV) You have been diagnosed with Benign Paroxysmal Positional Vertigo (BPPV.) BPPV is the most common cause of vertigo (sensation of motion.) It may occur in adults or children. Most people describe a profound spinning sensation with changes in position, such as rolling over in bed, or bending over to tie their shoes, which lasts a few seconds to minutes and then resolves until the next change in position. This may change in severity over time, and may not occur with all movements. Sometimes, people will describe a rocking sensation, like that of being on a boat, instead. Sufferers or people around them may also notice a jumping of the eyes during the symptom of vertigo. It is also very common to become nauseated during the vertigo, and for people to be reluctant to go out by themselves or to drive. This type of vertigo is generally not associated with lightheadedness or loss of consciousness. CAUSES: BPPV results from small calcium crystals (otoliths) breaking free from their normal location (where they occur naturally, allowing us to detect the effects of gravity) and entering one of the three canals of the balance organ (semicircular canals.) The presence of these particles in the semicircular canals acts to prolong stimulation of the balance organ with movements of the head, causing the brief, but sometimes profound, spinning or rocking sensation that you may experience after head movements or positional changes. The release of these particles has been associated with viral illnesses, head trauma, vascular accident (stroke), and migraine headaches, but most of the time a cause cannot be identified. Very rarely, BPPV can occur as a result of other diseases of the ear. Your doctor may recommend other tests to evaluate the ear and balance organ, especially if you do not respond normally to treatment or have additional or unusual symptoms. DIAGNOSIS: The diagnosis of BPPV is usually done by your doctor in the office. The most important part of making a diagnosis is your history and symptoms. By placing your head into several positions, your doctor can confirm the diagnosis by observation of characteristic movement of the eyes. These occur from the abnormal stimulation of the balance organ as the otoliths move about the semicircular canal causing your eyes to jump . The direction of these eye movements will tell your doctor which canal is affected and which treatments should be advised to resolve the symptom of vertigo. Your doctor may also recommend a hearing test or other tests of the balance organ. TREATMENT: The treatment of BPPV is removal of the particles from the semicircular canals. Because the particles are usually free floating, positioning the head in a way that allows the particle to exit the canals will often relieve the sensation of vertigo. This is done by performing the Radha maneuver, or by Semont exercises. Your doctor may ask you to see a physical therapist to perform and teach you about these. You may experience vertigo and nausea during this treatment, which is normal, and usually subsides quickly. Symptomatic improvement is usually achieved with as little as one or two treatment sessions, although some people may need several treatments for complete relief. Surgical treatment is rarely indicated, but is sometimes offered if symptoms fail the usual treatments, are severe, or recur with great frequency and the person desires surgical intervention. Fortunately, most cases of BPPV will resolve spontaneously, although this can sometimes take several weeks or months. The free particles tend to dissolve over time with relief of the vertigo symptoms. Staying active can help to stir up the particles and encourage them to dissolve, much in the same way stirring coffee or tea speeds sugar crystals to dissolve. MEDICATION: You may have been given medication by your primary care doctor or others to help relieve the symptom of vertigo. The most commonly prescribed medications include meclizine (Antivert , Bonine ,) diphenhydramine (Benadryl ,) and Dramamine . These medications are antihistamines (act against allergy symptoms) that also act to suppress nausea by their sedative effect on the central nervous system. Although helpful in this regard, they do not treat the underlying cause of vertigo, and in fact, may prolong the duration of this symptom. Your doctor may ask you to stop this medication or limit your use once a diagnosis of BPPV has been made. ONGOING CARE: After treatment, it is important to avoid allowing the particles to re-enter the semicircular canals. This is best achieved by avoiding certain head positions. In the first 48 hours after treatment, keep your head in an upright position. Avoid extending the neck backward or forward. Instead, try to keep your head in a forward looking direction. Avoid looking upward like you would to change a light bulb, or in gathering objects from a high shelf. Also, avoid looking downward as you would to tie your shoes or pick an object up off the floor. Instead, squat down while keeping your head level to do these activities. It is fine to turn your head from side to side when you are in a standing position. When entering or exiting your bed, sit at the edge of the bed, turn, and then lie straight back. When you awake in the morning, sit straight up, then turn , resting at the edge of the bed until any vertigo subsides before standing. Avoid rolling over in bed, and sleep with your head elevated on two pillows. Until your symptoms have resolved, avoid operating your car or other machinery which might place you in danger if you would experience vertigo. Do not drive or operate machinery of you are on any medications as addressed above. Avoid sedatives or alcohol, as this may make you less able to avoid a fall if you should experience vertigo. Avoid working at heights, or other areas where you would be at risk for fall or injury. Use hand rails and other support when climbing stairs. Let others know about your vertigo, and ask for assistance if you need it. Notify your doctor if your symptoms fail to improve, or if they recur. Repeated treatment can often give prompt relief. If you notice any change in your hearing, ringing or buzzing in the ear, ear fullness or pain, headaches, changes in vision, vertigo lasting longer that a few minutes, or any other problems, notify your doctor as this may be a sign of other disease of the ear or balance organ. NOTICE: THIS DOCUMENT IS INTENDED SOLELY FOR PATIENT EDUCATIONAL PURPOSES AND IS PROVIDED A COURTESY TO PATIENTS OF DR. ANDREI WEBSTER MD. IT IS NOT INTENDED A SUBSTITUTE FOR PROFESSIONAL MEDICAL CARE OR ADVICE. THE PATIENT SHOULD SEEK ADVICE FROM THE PHYSICIAN IF THERE ARE ANY QUESTIONS ABOUT THE CONTENTS OR DIRECTIONS PROVIDED IN THIS DOCUMENT documented in this encounter [facility] 03-21-2023 History of Present illness Narrative [facility] [address] [facility] [place] [address] [facility] [id number] Dept: [phone] Andrei Webster MD Elaine Appiah 43 y.o. 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 Past Medical History: Diagnosis Date Allergic rhinitis Current Outpatient Medications: albuterol sulfate 90 mcg/actuation aebs, Inhale ., Disp: , Rfl: losartan-hydrochlorothiazide (HYZAAR) 50-12.5 mg per tablet, Take 1 (one) tablet by mouth daily ., Disp: , Rfl: meloxicam (MOBIC) 15 MG tablet, Take 1 (one) tablet (15 mg total) by mouth daily ., Disp: , Rfl: montelukast (SINGULAIR) 10 mg tablet, Take 1 (one) tablet (10 mg total) by mouth daily ., Disp: , Rfl: fluticasone propionate (FLONASE) 50 mcg/actuation nasal spray, Instill 2 (two) sprays into each nostril daily ., Disp: 16 mL, Rfl: 3 loratadine (CLARITIN) 10 mg tablet, Take 1 (one) tablet (10 mg total) by mouth daily ., Disp: 30 tablet, Rfl: 11 [address]erg[address]erg[address] Reactions [address]: Iodinated Contrast- Oral And Iv Dye Anaphylaxis Shellfish Derived Anaphylaxis Past Surgical History: Procedure Laterality Date CHOLECYSTECTOMY 02/22/2007 HYSTERECTOMY 2019 Social History Socioeconomic History Marital status: Single Tobacco Use Smoking status: Never Smokeless tobacco: Never Substance and Sexual Activity Alcohol use: Yes Drug use: Never History reviewed. No pertinent family history. PHYSICAL EXAM: The patient was examined today 03/21/2023 with findings as follows: CONSTITUTIONAL: General Appearance: well-appearing, nontoxic, alert, no acute distress Communication: understanding at normal conversational tones, normal voicing, speech intelligible HEAD/FACE: Head: atraumatic, normocephalic, no lesions Facial Inspection: no lesions, healthy skin Facial Strength: motor strength normal, symmetric strength, symmetric movement Sinuses: no sinus tenderness Salivary Glands: no enlargements of parotid glands, no tenderness of parotid glands, no masses of parotid glands, clear salivary flow on palpation from Stensen's ducts, no duct stones of Stensen's duct, no enlargement of submandibular glands, no tenderness of submandibular glands, no masses of submandibular glands, clear salivary flow from [place]'s ducts, no stones of Michael's ducts Temporomandibular Joint: no crepitus with motion, no tenderness on palpation, no trismus, motion symmetric EYES: Pupils: PERRLA, extra-ocular movements intact, no nystagmus, sclera white, no redness of eyes, no watering of eyes EARS: Bilateral External Ears: no pits, no tags Right External Ear: normally formed, no lesions, no mastoid tenderness Left External Ear: normally formed, no lesions, no mastoid tenderness Right External Auditory Canal: normal, healthy skin, no obstructing cerumen, no discharge Left External Auditory Canal: 2 mm anterior osteoma, healthy skin, no obstructing cerumen, no discharge Right Tympanic Membrane: normal landmarks, translucent, mobile to pneumatic otoscopy, no perforation Left Tympanic Membrane: normal landmarks, translucent, mobile to pneumatic otoscopy, no perforation Hearing: intact to spoken voice, intact to finger rub, Goodson midline, Right Ear: Rinne AC>BC, Left Left Ear: Rinne AC>BC NOSE: Nasal Skin: no lesions, no lacerations, no scars Nasal Dorsum: symmetric with no visible or palpable deformities Nasal Tip: normal symmetric nasal tip, normal nasal valves Nasal Mucosa: normal, pink and moist Septum: not markedly deformed, midline, no exposed vessels, no bleeding, no septal granuloma Turbinates: normal size and conformation Nasopharynx: normal ORAL CAVITY/MOUTH: Lips, teeth, gums: normal lips, normal gums, dentition intact, no dental pain on palpation Oral Mucosa: normal, moist, no lesions Palate: normal hard palate, normal soft palate, symmetric palatal elevation Floor of Mouth: normal floor of mouth Tongue: normal tongue, no lesions, no edema, no masses, normal mucosa, mobile Tonsils: normal tonsils, symmetric, no lesions Posterior pharynx: normal NECK: Neck: no masses, trachea midline, normal range of motion, no cysts or pits, no tenderness to palpation Thyroid: normal thyroid, no enlargement, no tenderness, no nodules LYMPH NODES: Cervical: no palpable lymph node enlargement RESPIRATORY: Inspection/Auscultation: good air movement, chest expands symmetrically, normal breath sounds, no wheezing, no stridor CARDIOVASCULAR SYSTEM: Auscultation: regular rate and rhythm, carotid pulse normal, no carotid thrills, no carotid bruits Observation/Palpation of Peripheral Vascular System: no varicosities, no cyanosis, no edema SKIN: General Appearance: no lesions, warm and dry, normal turgor, no bruising NEUROLOGICAL SYSTEM: Orientation: oriented to time, oriented to place, oriented to person Cranial Nerves: Cranial Nerves II-XII intact, normal facial movement, Lorenzo-Hallpike with geotropic rotatory nystagmus with right ear down PSYCHIATRIC: Mood and affect: normal mood, normal affect Assessment and Plan: We have discussed that allergy management with daily nasal steroid use, addition of antihistamine to the montelukast may be helpful for allergy management. This may also be contributing to her aural fulness. I see no middle ear disease. She has a strong family history of hearing loss and formal audiometric testing is advised. We will scheduled this at another time as our software is down due to an unsuccessful update. 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 I have advised the patient that the symptoms and exam findings are most consistent with benign paroxysmal positional vertigo. We have discussed that the symptoms result from small calcium particles shed from the gravity sensing organ of the inner ear entering the movement sensing organ rendering it sensitive to changes in the force of gravity. An information sheet describing this in more detail is given. We have discussed that although this usually occurs spontaneously in isolation, these symptoms can also result from other disease of the ear or central nervous system. Treatment options of observation, physical therapy with Radha manuever, home Semont maneuver, and vestibular sedatives are discussed. The patient and/or caregiver is to notify the office if no improvement or worsening of symptoms is noted prior to the scheduled follow-up for sooner evaluation. The patient and/or caregiver is able to state an understanding of these recommendations and is agreeable to the treatment plan. 1. Seasonal allergic rhinitis due to pollen fluticasone propionate (FLONASE) 50 mcg/actuation nasal spray loratadine (CLARITIN) 10 mg tablet 2. BPPV (benign paroxysmal positional vertigo), right 3. Hearing loss of right ear, unspecified hearing loss type Ambulatory referral to ENT Ambulatory referral to Audiology 4. Osteoma of external ear canal Return in about 6 weeks (around 05/02/2023). The patient and/or caregiver is to notify the office if no improvement or worsening of symptoms is noted prior to the scheduled follow-up for sooner evaluation. The patient and/or caregiver is able to state an understanding of these recommendations and is agreeable to the treatment plan. --Andrei Webster MD on 03/21/2023 at 9:21 AM An electronic signature was used to authenticate this note. Review of Systems Constitutional: Negative. HENT: Positive for ear discharge, hearing loss, postnasal drip, sinus pressure, sinus pain and tinnitus. Eyes: Positive for itching and visual disturbance. Respiratory: Positive for shortness of breath. Cardiovascular: Negative. Gastrointestinal: Negative. Endocrine: Negative. Genitourinary: Negative. Musculoskeletal: Negative. Skin: Negative. Allergic/Immunologic: Positive for environmental allergies and food allergies. Neurological: Positive for dizziness and light-headedness. Hematological: Negative. Psychiatric/Behavioral: Negative. 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 [facility] Diagnosis Sensorineural hearing loss, unilateral, right ear, with restricted hearing on the contralateral side- Primary Hearing loss of right ear, unspecified hearing loss type 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 [facility] Diagnosis Sensorineural hearing loss, bilateral- Primary Hearing loss of right ear, unspecified hearing loss type [facility] Diagnosis Sensorineural hearing loss, unilateral, right ear, with restricted hearing on the contralateral side- Primary Subjective tinnitus of both ears [facility] Diagnosis Seasonal allergic rhinitis, unspecified trigger- Primary documented in this encounter [facility] Chief Complaint and Reason for Visit Chief Complaint LT mid back pain Chief Complaint R HAND PAIN RX HERE RIGHT EAR PAIN/SORE THROAT Reason for Visit Right acute otitis m edia Strep throat Chief Complaint RIGHT EAR PAIN/SORE THROAT chest pain Reason for Visit Right acute otitis m edia Strep throat Chief Complaint chest pain HEARING LOSS *ATTENTION IAC* Chief Complaint SNORING, SLEEP APNEA , DAYTIME FATIGUE Advance Directives No Advanced Directives Records Found Advance Directive Response Recorded Date/ Time Living Will No July 30 2:05pm Power of Customer Contact Specialist No July 30, 2022 2:05pm Advance Directive Response Recorded Date/ Time Living Will No August 07 1:54pm Power of Customer Contact Specialist No August 07, 2022 1:54pm Advance Directive Response Recorded Date/ Time Living Will No March 17, 2023 1:55pm Power of Customer Contact Specialist No March 17 1:55pm Advance Directive Response Recorded Date/ Time Living Will No March 17, 2023 12:55pm Power of Customer Contact Specialist No March 17 12:55pm Reason for Referral Specialty Diagnoses / Procedures Referred By Contac t Referred To Contact Audiology Diagnoses Hearing loss of right ear, unspecified hearing loss type Andrei Webster MD [address] [place] [address] [facility] [address] [place] [address] [place] [address] Referral ID Status Reason Start Date Expiration Date V isits Requested Visits Authorized [id number] Authorized 03/21/2023 03/20/2024 1 1 Specialty Diagnoses / Procedures Referred By Contac t Referred To Contact Radiology Diagnoses Sensorineural hearing loss, unilateral, right ear, with restricted hearing on the contralateral side Procedures MR IAC With And Without Contrast Andrei Webster MD [address] [facility] [address] [place] [id number] Referral ID Status Reason Start Date Expiration Date V isits Requested Visits Authorized [id number] New Request 05/02/2023 05/01/2024 1 1 Referral ID Status Reason Start Date Expiration Date V isits Requested Visits Authorized [id number] Authorized 05/02/2023 05/01/2024 1 1 Summary Purpose Family History No Family History Records FoundNo Family History Records FoundNo Family History Records FoundNo Family History Records Found Additional Source Comments Goals (unrecognized section and content) Goals may be documented in a n alternate sectionGoals may be documented in an alternate sectionGoals may be documented in an alternate sectionGoals may be documented in an alternate sectionGoals may be documented in an alternate section Care Teams (unrecognized sec tion and content) Team Status: Active Member Role Status Dates Dr. Alize Narayanan DO Family Provider Active Dr. Alize Narayanan DO Primary Care Provider Active Team Status: Inactive Member Role Status Dates Dr. Alize Narayanan DO Primary Care Provider, Referring P claudio Active Charlene Thayer PA, PA Attending Provider Active Team Status: Inactive Member Role Status Dates Dr. Alize Narayanan DO Primary Care Provider Active Dr. Porfirio Barrientos DO Attending Provider, Referring Provider Active Team Status: Inactive Member Role Status Dates Dr. Alize Narayanan DO Primary Care Provide r, Attending Provider, Referring Provider Active Team Status: Inactive Member Role Status Dates Dr. Alize Narayanan DO Primary Care Provider Active Dr. Demario Palomares MD Emergency Provider Active Acid Dumper Relationship Specialty Start Date End Date Tono Alcaraz, DO [address] [place] [address] PCP - General Family Medicine 02/17/23 Acid Dumper Relationship Specialty Start Date End Date Tono Alcaraz, DO [address] [place] [address] PCP - General Family Medicine 02/17/23 Acid Dumper Relationship Specialty Start Date End Date Tono Alcaraz, DO [address] [place] [address] PCP - General Family Medicine 02/17/23 Team Status: Inactive Member Role Status Dates Dr. Alize Narayanan DO Primary Care Provider Active Dr. Demario Palomares MD Attending Provider, Emergency Provider Active Team Status: Inactive Member Role Status Dates Dr. Alize Narayanan DO Primary Care Provider Active Dr. Andrei Webster MD Attending Provider, Referring Pro vider Active Acid Dumper Relationship Specialty Start Date End Date Tono Alcaraz Alan, DO [address] [place] [address] PCP - General Family Medicine 02/17/23 Acid Dumper Relationship Specialty Start Date End Date Tono Alcaraz DO [facility] [place] [address] PCP - General Family Medicine 02/17/23 Team Status: Inactive Member Role Status Dates Dr. Alize Narayanan DO Primary Care Provider Active GERA Valverde Attending Provider Active Reason for Visit (unrecogniz ed section and content) Reason Comments Consult Hearing loss Specialty Diagnoses / Procedures Referred By Lilia reynaga Referred To Contact Otolaryngology Diagnoses Hearing loss of right ear, unspecified hearing loss type Tono Alcaraz DO [address] [place] [address] Andrei Webster MD [address] [address] Referral ID Status Reason Start Date Expiration Date Visits Re quested Visits Authorized [id number] Closed 02/17/2023 02/17/2024 1 1 Reason Comments Hearing Loss Follow up hearing lo ss Specialty Diagnoses / Procedures Referred By Lilia reynaga Referred To Contact Audiology Diagnoses Hearing loss of right ear, unspecified hearing loss type Andrei Webster MD [address] [place] [address] [facility] [address] [place] [address] Referral ID Status Reason Start Date Expiration Date Visits Re quested Visits Authorized [id number] Closed 03/21/2023 03/20/2024 1 1 Reason Comments Follow-up Follow up [facility] erns INFORMATION SOURCE (unrecogn ized section and content) DATE CREATED AUTHOR 05/07/2023 [facility] DATE CREATED AUTHOR AUTHOR'S ORGANIZ ATION 05/21/2023 [facility] DATE CREATED AUTHOR AUTHOR'S ORGANIZ ATION 07/07/2024 [facility] DATE CREATED AUTHOR AUTHOR'S ORGANIZ ATION 11/03/2024 [facility] FOR RECORDS PERTAINING TO PATIENTS WHO ARE OR HAVE BEEN ENROLLED IN A CHEMICAL DEPENDENCY/SUBSTANCEABUSE PROGRAM, SOME INFORMATION MAY BE OMITTED. This clinical summary was aggregated from multiple sources. Caution should be exercised in using it in the provision of clinical care. This summary normalizes information from multiple sources, and as a consequence, information in this document may materially change the coding, format and clinical context of patient data. In addition, data may be omitted in some cases. CLINICAL DECISIONS SHOULD BE BASED ON THE PRIMARY CLINICAL RECORDS. [facility] [employer] [facility]. provides no warranty or guarantee of the accuracy or completeness of information in this document.
--- OUTSIDE RECORDS SUMMARY | 2025-05-30 06:44 | XMS RPT_ITS | CCD ---
Author Organization [facility] Inform ion Partnership [facility] Care Team Providers Care Field Pipe Lines Supervisor Name Role Phone Dr. Alize Narayanan Primary Care Provider Dr. Alize Narayanan Referring Provider [phone] Jeovany CHERY, [place] Charlene Iverson Attending Provider Tono Alcaraz DO Primary Care Provider [phone] ANDREI WEBSTER Referring Unavailable TONO ALCARAZ Primary Care Unavailable SYSTEM, PROVIDER NOT IN Referring Unavaila ble SYSTEM, PROVIDER NOT IN Attending Unavaila ble TONO ALCARAZ Primary Care Unavailable ANDREI WEBSTER Attending Unavailable LISSA, TONO ABARCA Primary Care Unavailable VINCENZO HERNÁNDEZ Attending Unavailable ANDREI WEBSTER Referring Unavailable LISSA, TONO TEVIN Primary Care Unavailable Malys, Alize Primary Care Unavailable Malys, Alize Attending Unavailable Malys, Alize Referring Unavailable Cory, Ciera Referring Unavailable Malys, Alize Primary Care Unavailable Cory, Ciera Attending Unavailable Malys, Alize Primary Care Unavailable Malys, Alize Attending Unavailable Malys, Alize Referring Unavailable Allergies Allergy Classification Reported Allergen(s) Allergy Type Date of Onset Reaction(s) Facility (5 sources) Iodine Drug Allergy 2 Hives [facility] (14 sources) Shellfish; Translations: [SHELLFISH DERIVED] Allergy to substance 2 Anaphylaxis [facility] (8 sources) Ct: Iodinated Contrast- Oral And Iv Dye; Translations: [CT: IODINATED CONTRAST- ORAL AND IV DYE] Propensity to adverse reactions to drug 3 Anaphylaxis [facility] (1 source) Iodine Drug Allergy 4 [facility] Repository Medications Current Medications Medication Drug Class(es) [...] Discontinued 1 TABLET PO EVERY 6 HOURS 10 August 07, 2022 December 07, 2022 8:01am acetaminophen [...] Discontinued 500 MG PO TWICE A DAY 22 07December 07, 2022 12:00am December 16, 2022 11:05pm B5-R8-Athq-Cord-Rho d-P.Ginseng (5 sources) Start: 12-18-2020 End: 12-07-2022 X3-Q4-Pnfc-Cord-Rh od-P.Ginseng Discontinued 1 EACH PO DAILY December 17, 2020 11:00pm December 07, 2022 8:01am Start: 12-18-2020 End: 12-07-2022 O6-S1-Zlwt-Cord-Rhod-P.Nel de jesus Discontinued 1 EACH PO DAILY December 18, 2020 12:00am December 07, 2022 9:01am Start: 12-18-2020 U1-X0-Laju-Cor d-Rhod-P.Ginseng Active 1 EACH PO DAILY December [...] hour prior to the procedure or exam Vit,Nsgr07-Eebt-Ciio c (Prenatabs Fa ) 1 TABLET tablet (5 sources) Start: 07-20-2013 End: 07-23-2013 take 1 tablet by mouth once daily Vit,Xtqa89-Cuaa-Oml ic (Prenatabs Fa ) 1 TABLET tablet Discontinued 1 TABLET PO DAILY July 19, 2013 11:00pm July 23, 2013 7:18am Start: 07-20-2013 End: 07-23-2013 take 1 tablet by mouth once daily Vit,Ikdj33-Opha-Hhdui (Prenatab s Fa ) 1 TABLET tablet [...] and hand, initial encounter for closed fracture] 11-05-2022 Episodic Menstrual disorders (10 sources) Menorrhagia; Translations: [...] of the circulatory system] 03-17-2023 Episodic Other ear and sense organ disorders [...] other specified body structures] 11-19-2020 Chronic Other screening for suspected conditions (not mental disorders or infectious disease) (1 source) Encounter for screening mammogram for malignant neoplasm of breast; Translations: [Encounter for screening mammogram for malignant neoplasm of breast] Onset: 05-24-2025 Episodic Other skin disorders (5 sources) Mass of [...] Classification Problem Date Documented Da te Episodic/Chronic Other connective tissue disease (1 source) Pain in unspecified thigh; Translations: [Pain in unspecified thigh] Onset: 11-01-2024 Episodic Unclassified (5 sources) hisory of biopsy abd mass 04-23-2022 Results Test Name Value Interpretation Reference Range Facility Venous Duplex US, Unilateral on 10-09-2024 Venous Duplex US, Unilateral [facility] [address] [place] [address] Venous Duplex US, Unilateral 10/09/24 0859 MR#: [id number] Acct: [id number] Name: ELAINE APPIAH Rep #: [id number] : 1980 44 From: Mario Wagoner MD Attending Dr: Dr. Alize Narayanan, DO Status: REG CL I Ordering Dr: Alize [...] Referring Physician: Alize Narayanan Performed By: Sandra Cordoba RVT 10/09/24 2721 Date Mario Wagoner MD CC: Dr. Alize Narayanan, Date Dictated: 10/09/24 0859 Date Transcribed: 10/09/242311 Director Social Service: Signed Normal [facility] CBC W/Diff, Automatedon 08-3 0-202 Absolute Lymph 1.76 X10 3/uL Normal 0.83-4.51 [facility] Comment on above: Performed By: #### L 503.6550, L500.4050, L100.0100, L501.9520, L506.0400, L503.0105, L506.1000, L500.4100, L503.6150 #### [facility] [address] [place], [address] Absolute Neut 15.2 X10 3/uL High 2.0-7.7 [facility] Comment on above: Performed By: #### L 503.6550, L500.4050, L100.0100, L501.9520, L506.0400, L503.0105, L506.1000, L500.4100, L503.6150 #### [facility] [address] [place], [address] Basophils/100 WBC (Bld) 0.2 % Normal 0-[address] [facility] Comment on above: Performed By: #### L 503.6550, L500.4050, L100.0100, L501.9520, L506.0400, L503.0105, L506.1000, L500.4100, L503.6150 #### [facility] [address] [place], [address] Eosinophils/100 WBC (Bld) 0.0 % Normal 0-5 [facility] Comment on above: Performed By: #### L 503.6550, L500.4050, L100.0100, L501.9520, L506.0400, L503.0105, L506.1000, L500.4100, L503.6150 #### [facility] [address] [place], [place], [phone] ([phone] Erythrocyte distribution width (RBC) [Ratio] 12.4 % Normal 11.6-14.6 [facility] Comment on above: Performed By: #### L 503.6550, L500.4050, L100.0100, L501.9520, L506.0400, L503.0105, L506.1000, L500.4100, L503.6150 #### [facility] [address] [place], [address] Hematocrit (Bld) [Volume fraction] 41.1 % Normal 37-47 [facility] Comment on above: Performed By: #### L 503.6550, L500.4050, L100.0100, L501.9520, L506.0400, L503.0105, L506.1000, L500.4100, L503.6150 #### [facility] [address] [place], [address] Hemoglobin (Bld) [Mass/Vol] 13.5 g/dL Normal 12.0-15.0 [facility] Comment on above: Performed By: #### L 503.6550, L500.4050, L100.0100, L501.9520, L506.0400, L503.0105, L506.1000, L500.4100, L503.6150 #### [facility] [address] [place], [address] IG% 0.800 Normal 0.0-0.9 [facility] Comment on above: Result Comment: IG% - Immature Granulocytes (promyelocytes, myelocytes and metamyelocytes) > 1% indicates that a LEFT SHIFT is Present. Performed By: #### L 503.6550, L500.4050, L100.0100, L501.9520, L506.0400, L503.0105, L506.1000, L500.4100, L503.6150 #### [facility] [address] [place], [address] Lymphocytes/100 WBC (Bld) 9.6 % Low 19-41 [facility] Comment on above: Performed By: #### L 503.6550, L500.4050, L100.0100, L501.9520, L506.0400, L503.0105, L506.1000, L500.4100, L503.6150 #### [facility] [address] [place], [address] MCH (RBC) [Entitic mass] 28.3 pg Normal 27.0-32.0 [facility] Comment on above: Performed By: #### L 503.6550, L500.4050, L100.0100, L501.9520, L506.0400, L503.0105, L506.1000, L500.4100, L503.6150 #### [facility] [address] [place], [address] MCHC (RBC) [Mass/Vol] 32.8 g/dL Normal 32-36 [facility] Comment on above: Performed By: #### L 503.6550, L500.4050, L100.0100, L501.9520, L506.0400, L503.0105, L506.1000, L500.4100, L503.6150 #### [facility] [address] [place], [address] MCV (RBC) [Entitic vol] 86.2 fL Normal 81-[address] [facility] Comment on above: Performed By: #### L 503.6550, L500.4050, L100.0100, L501.9520, L506.0400, L503.0105, L506.1000, L500.4100, L503.6150 #### [facility] [address] [place], [address] Monocytes/100 WBC (Bld) 6.0 % Normal 0-[address] [facility] Comment on above: Performed By: #### L 503.6550, L500.4050, L100.0100, L501.9520, L506.0400, L503.0105, L506.1000, L500.4100, L503.6150 #### [facility] [address] [place], [address] Neutrophils/100 WBC (Bld) 83.4 % High 47-70 [facility] Comment on above: Performed By: #### L 503.6550, L500.4050, L100.0100, L501.9520, L506.0400, L503.0105, L506.1000, L500.4100, L503.6150 #### [facility] [address] [place], [address] Nucleated RBC (Bld) [#/Vol] 0 10*3/uL Normal 0-5 [facility] Comment on above: Performed By: #### L 503.6550, L500.4050, L100.0100, L501.9520, L506.0400, L503.0105, L506.1000, L500.4100, L503.6150 #### [facility] [address] [place], [address] Platelet mean volume (Bld) [Entitic vol] 9.5 fL Normal 6.2-12.0 [facility] Comment on above: Performed By: #### L 503.6550, L500.4050, L100.0100, L501.9520, L506.0400, L503.0105, L506.1000, L500.4100, L503.6150 #### [facility] [address] [place], [address] Platelets (Bld) [#/Vol] 399 10*3/uL Normal 150-450 [facility] Comment on above: Performed By: #### L 503.6550, L500.4050, L100.0100, L501.9520, L506.0400, L503.0105, L506.1000, L500.4100, L503.6150 #### [facility] [address] [place], [address] RBC (Bld) [#/Vol] 4.77 10*6/uL Normal 4.2-5.4 [facility] Comment on above: Performed By: #### L 503.6550, L500.4050, L100.0100, L501.9520, L506.0400, L503.0105, L506.1000, L500.4100, L503.6150 #### [facility] [address] [place], [address] RDW SD 38.9 fl Normal 35.1-43.9 [facility] Comment on above: Performed By: #### L 503.6550, L500.4050, L100.0100, L501.9520, L506.0400, L503.0105, L506.1000, L500.4100, L503.6150 #### [facility] [address] [place], [address] WBC (Bld) [#/Vol] 18.3 10*3/uL High 4.4-11.0 [facility] Comment on above: Performed By: #### L 503.6550, L500.4050, L100.0100, L501.9520, L506.0400, L503.0105, L506.1000, L500.4100, L503.6150 #### [facility] [address] [place], [address] Comprehensive Metabolic Prof wion 06-01-2024 Albumin [Mass/Vol] 3.2 g/dL Normal 3.2-5.0 [facility] Comment on above: Performed By: #### L 503.6550, L500.4050, L100.0100, L501.9520, L506.0400, L503.0105, L506.1000, L500.4100, L503.6150 #### [facility] [address] [place], [address] Albumin/Globulin [Mass ratio] 0.8 {ratio} Low 0.9-2.4 [facility] Comment on above: Performed By: #### L 503.6550, L500.4050, L100.0100, L501.9520, L506.0400, L503.0105, L506.1000, L500.4100, L503.6150 #### [facility] [address] [place], [address] ALK P 58 U/L Normal 45-117 [facility] Comment on above: Performed By: #### L 503.6550, L500.4050, L100.0100, L501.9520, L506.0400, L503.0105, L506.1000, L500.4100, L503.6150 #### [facility] [address] [place], [address] ALT [Catalytic activity/Vol] 27 U/L Normal 13-56 [facility] Comment on above: Performed By: #### L 503.6550, L500.4050, L100.0100, L501.9520, L506.0400, L503.0105, L506.1000, L500.4100, L503.6150 #### [facility] [address] [place], [address] AST [Catalytic activity/Vol] 14 U/L Low 15-37 [facility] Comment on above: Performed By: #### L 503.6550, L500.4050, L100.0100, L501.9520, L506.0400, L503.0105, L506.1000, L500.4100, L503.6150 #### [facility] [address] [place], [address] Bilirubin [Mass/Vol] 0.20 mg/dL Normal 0.20-1.00 [facility] Comment on above: Result Comment: For patients on eltrombopag therapy, use of Dimension [place] TBIL is not recommended. Performed By: #### L 503.6550, L500.4050, L100.0100, L501.9520, L506.0400, L503.0105, L506.1000, L500.4100, L503.6150 #### [facility] [address] [place], [address] BUN/CRE 27.3 RATIO High 10-20 [facility] Comment on above: Performed By: #### L 503.6550, L500.4050, L100.0100, L501.9520, L506.0400, L503.0105, L506.1000, L500.4100, L503.6150 #### [facility] [address] [place], [address] CA,Total 9.0 mg/dL Normal 8.5-10.1 [facility] Comment on above: Performed By: #### L 503.6550, L500.4050, L100.0100, L501.9520, L506.0400, L503.0105, L506.1000, L500.4100, L503.6150 #### [facility] [address] [place], [address] Chloride [Moles/Vol] 107 mmol/L Normal 98-107 [facility] Comment on above: Performed By: #### L 503.6550, L500.4050, L100.0100, L501.9520, L506.0400, L503.0105, L506.1000, L500.4100, L503.6150 #### [facility] [address] [place], [address] CO2 [Moles/Vol] 26.0 mmol/L Normal 21.0-32.0 [facility] Comment on above: Performed By: #### L 503.6550, L500.4050, L100.0100, L501.9520, L506.0400, L503.0105, L506.1000, L500.4100, L503.6150 #### [facility] [address] [place], [place], [phone] ([phone]) Creatinine [Mass/Vol] 0.66 mg/dL Normal 0.55-1.02 [facility] Comment on above: Result Comment: The validity of the calculated GFR GFRAA in patients over 70 years has not been determined. Clinical correlation is essential. Performed By: #### L 503.6550, L500.4050, L100.0100, L501.9520, L506.0400, L503.0105, L506.1000, L500.4100, L503.6150 #### [facility] [address] [place], [address] (863) EST GFR - AA 124 mL/min Normal >60 [facility] Comment on above: Result Comment: Afri can Japanese GFR Calc Performed By: #### L 503.6550, L500.4050, L100.0100, L501.9520, L506.0400, L503.0105, L506.1000, L500.4100, L503.6150 #### [facility] [address] [place], [address] (747) GAP 4 Low 5-15 [facility] Comment on above: Performed By: #### L 503.6550, L500.4050, L100.0100, L501.9520, L506.0400, L503.0105, L506.1000, L500.4100, L503.6150 #### [facility] [address] [place], [address] GFR/1.73 sq M.predicted among non-blacks MDRD (S/P/Bld) [Vol rate/Area] 103 mL/min/{1.73_m2} Normal >60 [facility] Comment on above: Result Comment: Non- GFR Calc Performed By: #### L 503.6550, L500.4050, L100.0100, L501.9520, L506.0400, L503.0105, L506.1000, L500.4100, L503.6150 #### [facility] [address] [place], [address] Globulin (S) [Mass/Vol] 4.0 g/dL Normal 2.2-4.[address] [facility] Comment on above: Performed By: #### L 503.6550, L500.4050, L100.0100, L501.9520, L506.0400, L503.0105, L506.1000, L500.4100, L503.6150 #### [facility] [address] [place], [address] Glucose [Mass/Vol] 106 mg/dL Normal 74-106 [facility] Comment on above: Result Comment: Fast ing Glucose result from 100 to 125 mg/dL suggests IMPAIRED HOMEOSTASIS per A.D.A. criteria. Performed By: #### L 503.6550, L500.4050, L100.0100, L501.9520, L506.0400, L503.0105, L506.1000, L500.4100, L503.6150 #### [facility] [address] [place], [address] Potassium [Moles/Vol] 3.7 mmol/L Normal 3.5-5.1 [facility] Comment on above: Performed By: #### L 503.6550, L500.4050, L100.0100, L501.9520, L506.0400, L503.0105, L506.1000, L500.4100, L503.6150 #### [facility] [address] [place], [address] Sodium [Moles/Vol] 137 mmol/L Normal 136-145 [facility] Comment on above: Performed By: #### L 503.6550, L500.4050, L100.0100, L501.9520, L506.0400, L503.0105, L506.1000, L500.4100, L503.6150 #### [facility] [address] [place], [address] T PROT 7.2 g/dL Normal 6.4-8.2 [facility] Comment on above: Performed By: #### L 503.6550, L500.4050, L100.0100, L501.9520, L506.0400, L503.0105, L506.1000, L500.4100, L503.6150 #### [facility] [address] [place], [place], [phone] ([phone]) Urea nitrogen [Mass/Vol] 18 mg/dL Normal 7-18 [facility] Comment on above: Performed By: #### L 503.6550, L500.4050, L100.0100, L501.9520, L506.0400, L503.0105, L506.1000, L500.4100, L503.6150 #### [facility] [address] [place], [address] Ferritinon 06-01-2024 Ferritin [Mass/Vol] 37 ng/mL Normal 8-252 [facility] Comment on above: Performed By: #### L 503.6550, L500.4050, L100.0100, L501.9520, L506.0400, L503.0105, L506.1000, L500.4100, L503.6150 #### [facility] [address] [place], [address] Ironon 06-01-2024 Iron [Mass/Vol] 43 ug/dL Low 50-170 [facility] Comment on above: Performed By: #### L 503.6550, L500.4050, L100.0100, L501.9520, L506.0400, L503.0105, L506.1000, L500.4100, L503.6150 #### [facility] [address] [place], [address] Lipid Profileon 06-01-2024 Cholesterol [Mass/Vol] 178 mg/dL Normal 200 [facility] Comment on above: Result Comment: <200 mg/dL Desirable 200-240 mg/dL Borderline >240 mg/dL High Risk Performed By: #### L 503.6550, L500.4050, L100.0100, L501.9520, L506.0400, L503.0105, L506.1000, L500.4100, L503.6150 #### [facility] [address] [place], [address] Cholesterol in HDL [Mass/Vol] 73 mg/dL Normal [facility] Comment on above: Result Comment: The drugs N-Acetylcysteine and Metamizole may falsely depress this assay. Reference Range HDL <40 mg/dL Low HDL Cholesterol HDL >or= 60 mg/dL High HDL Cholesterol Performed By: #### L 503.6550, L500.4050, L100.0100, L501.9520, L506.0400, L503.0105, L506.1000, L500.4100, L503.6150 #### [facility] [address] [place], [address] Cholesterol in LDL [Mass/Vol] 92 mg/dL Normal 0-130 [facility] Comment on above: Performed By: #### L 503.6550, L500.4050, L100.0100, L501.9520, L506.0400, L503.0105, L506.1000, L500.4100, L503.6150 #### [facility] [address] [place], [address] Cholesterol in VLDL [Mass/Vol] 13 mg/dL Normal 5-40 [facility] Comment on above: Performed By: #### L 503.6550, L500.4050, L100.0100, L501.9520, L506.0400, L503.0105, L506.1000, L500.4100, L503.6150 #### [facility] [address] [place], [place], [phone] Triglyceride [Mass/Vol] 66 mg/dL Normal [facility] Comment on above: Result Comment: The drugs N-Acetylcysteine and Metamizole may falsely depress this assay. Serum Triglycerides Reference Interval Normal <150 mg/dL Borderline high 150 - 199 mg/dL High 200 - 499 mg/dL Very High > or = 500 mg/dL Performed By: #### L 503.6550, L500.4050, L100.0100, L501.9520, L506.0400, L503.0105, L506.1000, L500.4100, L503.6150 #### [facility] [address] [facility] [address] [place], [place], [id number] T4 Free Directon 06-01-2024 T4 FREE DIRECT 0.97 ng/dL Normal 0.76-1.46 [facility] Comment on above: Performed By: #### L 503.6550, L500.4050, L100.0100, L501.9520, L506.0400, L503.0105, L506.1000, L500.4100, L503.6150 #### [facility] [address] [facility] [place], [place], [phone] Thyroid Stim Hormone (TSH)on 06-01-2024 TSH 0.651 uIU/mL Normal 0.358-3.740 [facility] Comment on above: Performed By: #### L 503.6550, L500.4050, L100.0100, L501.9520, L506.0400, L503.0105, L506.1000, L500.4100, L503.6150 #### [facility] [address] [facility] [address] [place], [place], [phone] Vitamin B12on 06-01-2024 Cobalamin (Vitamin B12) [Mass/Vol] 282 pg/mL Normal 211-911 [facility] Comment on above: Performed By: #### L 503.6550, L500.4050, L100.0100, L501.9520, L506.0400, L503.0105, L506.1000, L500.4100, L503.6150 #### [facility] [address] [place], [place], [id number] Vitamin D,25 Hydroxyon 06-016 Vitamin D 25-OH 16.7 ng/mL Normal [facility] Comment on above: Result Comment: Aggie min D 25(OH) Status Range Deficiency <20 ng/mL (50nmol/L) Insufficiency 20 - 30 ng/mL (50 - 75 nmol/L) Sufficiency 30 - 100 ng/mL (75 - 250 nmol/L) Toxicity >100 ng/mL (>250 nmol/L) Performed By: #### L 503.6550, L500.4050, L100.0100, L501.9520, L506.0400, L503.0105, L506.1000, L500.4100, L503.6150 #### [facility] [address] [place], [place], [phone] Basophil percentageOrdered B y: Andrei Webster on 05-18-2023 Basophil percentage < 0.9 mg/dL 0.55-1.02 [facility] No Panel InformationOrdered By: Andrei Webster on 05-18-2023 Bedside Estimated GFR (eGFR) > 60.0000 mL/min >60 [facility] Absolute lymphocyte countOrd ered By: Dr. Ruvalcaba on 03-17-2023 Lymphocytes Auto (Unsp spec) [#/Vol] 2.05 10*3/uL 0.83-4.51 [facility] Basophil percentageOrdered B y: Dr. Ruvalcaba on 03-17-2023 Basophils/100 WBC (Bld) 0.4 % 0-[address] [facility] Chloride [Moles/Vol] 104 mmol/L 98-107 [facility] Eosinophils/100 WBC (Bld) 3.5 % 0-5 [facility] Glucose [Mass/Vol] 111 mg/dL 74-106 [facility] Comment on above: Fasting Glucose resu lt from 100 to 125 mg/dL suggests IMPAIRED HOMEOSTASIS per A.D.A. criteria. Neutrophils (Bld) [#/Vol] 5.4 10*3/uL 2.0-7.7 [facility] Neutrophils/100 WBC (Bld) 65.5 % 47-70 [facility] Potassium [Moles/Vol] 3.6 mmol/L 3.5-5.1 [facility] Sodium [Moles/Vol] 137 mmol/L 136-145 [facility] WBC (Bld) [#/Vol] 8.3 10*3/uL 4.4-11.0 [facility] Blood erythrocytes count (nu mber/volume)Ordered By: Dr. Ruvalcaba on 03-17-2023 RBC (Bld) [#/Vol] 5.11 10*6/uL 4.2-5.4 [facility] Blood hemoglobin measurement (mass/volume)Ordered By: Dr. Ruvalcaba on 03-17-2023 Hemoglobin (Bld) [Mass/Vol] 14.6 g/dL 12.0-15.0 [facility] Blood lymphocytes/100 leukoc ytesOrdered By: Dr. Ruvalcaba on 03-17-2023 Lymphocytes/100 WBC (Bld) 24.8 % 19-41 [facility] Blood monocytes/100 leukocyt esOrdered By: Dr. Ruvalcaba on 03-17-2023 Monocytes/100 WBC (Bld) 5.4 % 0-10 [facility] Blood platelet mean volumeOr dered By: Dr. Ruvalcaba on 03-17-2023 Platelet mean volume (Bld) [Entitic vol] 9.9 fL 6.2-12.0 [facility] Determination of erythrocyte mean corpuscular volume (MCV)Ordered By: Dr. Ruvalcaba on 03-17-2023 MCV (RBC) [Entitic vol] 87.1 fL 81-[address] [facility] Hematocrit Auto (Bld) [Volum e fraction]Ordered By: Dr. Ruvalcaba on 03-17-2023 Hematocrit (Bld) [Volume fraction] 44.5 % 37-47 [facility] Laboratory - Chemistry and C hemistry - challengeOrdered By: Dr. Ruvalcaba on 03-17-2023 CO2 [Moles/Vol] 29.0 mmol/L 21.0-32.0 [facility] Urea nitrogen/Creatinine [Mass ratio] 13.4 mg/mg 10-20 [facility] Laboratory - Hematology and Cell countsOrdered By: Dr. Ruvalcaba on 03-17-2023 Erythrocyte distribution width (RBC) [Entitic vol] 38.3 fL 35.1-43.9 [facility] Erythrocyte distribution width (RBC) [Ratio] 12.0 % 11.6-14.6 [facility] Immature granulocytes/100 WBC (Bld) 0.400 % 0.0-0.9 [facility] Comment on above: IG% - Immature Granu locytes (promyelocytes, myelocytes and metamyelocytes) > 1% indicates that a LEFT SHIFT is Present. MCH (RBC) [Entitic mass] 28.6 pg 27.0-32.0 [facility] Nucleated RBC/100 WBC (Bld) [Ratio] 0 % 0-5 [facility] MCHC Auto (RBC) [Mass/Vol]Or dered By: Dr. Ruvalcaba on 03-17-2023 MCHC (RBC) [Mass/Vol] 32.8 g/dL 32-36 [facility] No Panel InformationOrdered By: Dr. Ruvalcaba on 03-17-2023 Troponin I High Sensitivity 4 pg/mL 3.0-54.0 [facility] Comment on above: Please Note: New Kimberly t Units and Gender Specific Reference Ranges. For more information see Policy Stat Procedure [place] High Sensitivity Troponin (TNIH) and attachments. D-Dimer Quantitative (PE/DVT) 0.27 FEU/ug/m 0.27-0.49 [facility] Comment on above: NORMAL D-Dimer level (<0.50) indicates no DVT or PE. Estimated Creatinine Clearance Calc 72.42 ml/min [facility] Estimated GFR (MDRD) Amer 98 mL/min >60 [facility] Comment on above: GFR Calc Estimated GFR (MDRD) Non-Af Amer 81 mL/min >60 [facility] Comment on above: Non- GFR Calc Platelets bldOrdered By: Dr. Ruvalcaba on 03-17-2023 Platelets (Bld) [#/Vol] 302 10*3/uL 150-450 [facility] Serum or plasma calcium venkatesh urement (mass/volume)Ordered By: Dr. Ruvalcaba on 03-17-2023 Calcium [Mass/Vol] 9.1 mg/dL 8.5-10.1 [facility] Serum or plasma creatinine m easurement (mass/volume)Ordered By: Dr. Ruvalcaba on 03-17-2023 Creatinine [Mass/Vol] 0.82 mg/dL 0.55-1.02 [facility] Comment on above: The validity of the calculated GFR & GFRAA in patients over 70 years has not been determined. Clinical correlation is essential. Serum or plasma urea nitroge n measurement (mass/volume)Ordered By: Dr. Ruvalcaba on 03-17-2023 Urea nitrogen [Mass/Vol] 11 mg/dL 7-18 [facility] Thin prep Papanicolaou smear with manual screeningOrdered By: Dr. Ruvalcaba on 03-17-2023 Thin prep Papanicolaou smear with manual screening 4 5-15 [facility] Absolute lymphocyte countOrd ered By: Dr. Narayanan on 12-20-2022 Lymphocytes Auto (Unsp spec) [#/Vol] 1.49 10*3/uL 0.83-4.51 [facility] Basophil percentageOrdered B y: Dr. Narayanan on 12-20-2022 Basophils/100 WBC (Bld) 0.3 % 0-[address] [facility] Bilirubin [Mass/Vol] 0.60 mg/dL 0.20-1.00 [facility] Comment on above: For patients on eltr ombopag therapy, use of Dimension [place] TBIL is not recommended. Chloride [Moles/Vol] 106 mmol/L 98-107 [facility] Cholesterol [Mass/Vol] 137 mg/dL <200 [facility] Comment on above: <200 mg/dL Desirable 200-240 mg/dL Borderline >240 mg/dL High Risk Eosinophils/100 WBC (Bld) 2.6 % 0-5 [facility] Glucose [Mass/Vol] 91 mg/dL 74-106 [facility] Neutrophils (Bld) [#/Vol] 3.6 10*3/uL 2.0-7.7 [facility] Neutrophils/100 WBC (Bld) 62.7 % 47-70 [facility] Potassium [Moles/Vol] 3.6 mmol/L 3.5-5.1 [facility] Protein [Mass/Vol] 7.6 g/dL 6.4-8.2 [facility] Sodium [Moles/Vol] 139 mmol/L 136-145 [facility] Triglyceride [Mass/Vol] 72 mg/dL <[address] [facility] Comment on above: The drugs N-Acetylcy steine and Metamizole may falsely depress this assay.Serum Triglycerides Reference Interval Normal <150 mg/dL Borderline high 150 - 199 mg/dL High 200 - 499 mg/dL Very High > or = 500 mg/dL WBC (Bld) [#/Vol] 5.8 10*3/uL 4.4-11.0 [facility] Blood erythrocytes count (nu mber/volume)Ordered By: Dr. Narayanan on 12-20-2022 RBC (Bld) [#/Vol] 5.20 10*6/uL 4.2-5.4 [facility] Blood hemoglobin measurement (mass/volume)Ordered By: Dr. Narayanan on 12-20-2022 Hemoglobin (Bld) [Mass/Vol] 14.7 g/dL 12.0-15.0 [facility] Blood lymphocytes/100 leukoc ytesOrdered By: Dr. Narayanan on 12-20-2022 Lymphocytes/100 WBC (Bld) 25.7 % 19-41 [facility] Blood monocytes/100 leukocyt esOrdered By: Dr. Narayanan on 12-20-2022 Monocytes/100 WBC (Bld) 8.4 % 0-10 [facility] Blood platelet mean volumeOr dered By: Dr. Narayanan on 12-20-2022 Platelet mean volume (Bld) [Entitic vol] 10.3 fL 6.2-12.0 [facility] Determination of erythrocyte mean corpuscular volume (MCV)Ordered By: Dr. Narayanan on 12-20-2022 MCV (RBC) [Entitic vol] 89.2 fL 81-[address] [facility] Hematocrit Auto (Bld) [Volum e fraction]Ordered By: Dr. Narayanan on 12-20-2022 Hematocrit (Bld) [Volume fraction] 46.4 % 37-47 [facility] Laboratory - Chemistry and C hemistry - challengeOrdered By: Dr. Narayanan on 12-20-2022 ALP [Catalytic activity/Vol] 57 U/L 45-117 [facility] ALT [Catalytic activity/Vol] 47 U/L 13-56 [facility] CO2 [Moles/Vol] 25.0 mmol/L 21.0-32.0 [facility] Globulin (S) [Mass/Vol] 4.1 g/dL 2.2-4.[address] [facility] Urea nitrogen/Creatinine [Mass ratio] 11.4 mg/mg 10-20 [facility] Laboratory - Hematology and Cell countsOrdered By: Dr. Narayanan on 12-20-2022 Erythrocyte distribution width (RBC) [Entitic vol] 39.3 fL 35.1-43.9 [facility] Erythrocyte distribution width (RBC) [Ratio] 11.9 % 11.6-14.6 [facility] Immature granulocytes/100 WBC (Bld) 0.300 % 0.0-0.9 [facility] Comment on above: IG% - Immature Granu locytes (promyelocytes, myelocytes and metamyelocytes) > 1% indicates that a LEFT SHIFT is Present. MCH (RBC) [Entitic mass] 28.3 pg 27.0-32.0 [facility] Nucleated RBC/100 WBC (Bld) [Ratio] 0 % 0-5 [facility] MCHC Auto (RBC) [Mass/Vol]Or dered By: Dr. Narayanan on 12-20-2022 MCHC (RBC) [Mass/Vol] 31.7 g/dL 32-36 [facility] No Panel InformationOrdered By: Dr. Narayanan on 12-20-2022 Estimated GFR (MDRD) Amer 101 mL/min >60 [facility] Comment on above: GFR Calc Estimated GFR (MDRD) Non-Af Amer 84 mL/min >60 [facility] Comment on above: Non- GFR Calc Platelets bldOrdered By: Dr. Narayanan on 12-20-2022 Platelets (Bld) [#/Vol] 345 10*3/uL 150-450 [facility] Serum or plasma albumin venkatesh urement (mass/volume)Ordered By: Dr. Narayanan on 12-20-2022 Albumin [Mass/Vol] 3.5 g/dL 3.2-5.0 [facility] Serum or plasma albumin/glob ulin mass ratioOrdered By: Dr. Narayanan on 12-20-2022 Albumin/Globulin [Mass ratio] 0.9 {ratio} 0.9-2.4 [facility] Serum or plasma calcium venkatesh urement (mass/volume)Ordered By: Dr. Narayanan on 12-20-2022 Calcium [Mass/Vol] 8.4 mg/dL 8.5-10.1 [facility] Serum or plasma cholesterol in HDL measurement (mass/volume)Ordered By: Dr. Narayanan on 12-20-2022 Cholesterol in HDL [Mass/Vol] 44 mg/dL >40 [facility] Comment on above: The drugs N-Acetylcy steine and Metamizole may falsely depress this assay. Reference Range HDL <40 mg/dL Low HDL Cholesterol HDL >or= 60 mg/dL High HDL Cholesterol Serum or plasma cholesterol in VLDL measurement (mass/volume)Ordered By: Dr. Narayanan on 12-20-2022 Cholesterol in VLDL [Mass/Vol] 14 mg/dL 5-40 [facility] Serum or plasma creatinine m easurement (mass/volume)Ordered By: Dr. Narayanan on 12-20-2022 Creatinine [Mass/Vol] 0.79 mg/dL 0.55-1.02 [facility] Comment on above: The validity of the calculated GFR & GFRAA in patients over 70 years has not been determined. Clinical correlation is essential. Serum or plasma low density lipoprotein (LDL) cholesterol measurement (mass/volume)Ordered By: Dr. Narayanan on 12-20-2022 Cholesterol in LDL [Mass/Vol] 79 mg/dL 0-130 [facility] Serum or plasma urea nitroge n measurement (mass/volume)Ordered By: Dr. Narayanan on 12-20-2022 Urea nitrogen [Mass/Vol] 9 mg/dL 7-18 [facility] Thin prep Papanicolaou smear with manual screeningOrdered By: Dr. Malys on 12-20-2022 Thin prep Papanicolaou smear with manual screening 27 U/L 15-37 [facility] Thin prep Papanicolaou smear with manual screening 8 5-15 [facility] Absolute lymphocyte counton 07-30-2022 Lymphocytes Auto (Unsp spec) [#/Vol] 1.95 10*3/uL 0.83-4.51 [facility] Work Phone: Basophil percentageon 2021 Basophils/100 WBC (Bld) 0.3 % 0-[address] [facility] Work Phone: Chloride [Moles/Vol] 108 mmol/L 98-107 [facility] Work Phone: Eosinophils/100 WBC (Bld) 3.7 % 0-5 [facility] Work Phone: Glucose [Mass/Vol] 95 mg/dL 74-106 [facility] Work Phone: Neutrophils (Bld) [#/Vol] 4.9 10*3/uL 2.0-7.7 [facility] Work Phone: Neutrophils/100 WBC (Bld) 63.9 % 47-70 [facility] Work Phone: Potassium [Moles/Vol] 3.6 mmol/L 3.5-5.1 [facility] Work Phone: Sodium [Moles/Vol] 140 mmol/L 136-145 [facility] Work Phone: WBC (Bld) [#/Vol] 7.6 10*3/uL 4.4-11.0 [facility] Work Phone: Blood erythrocytes count (nu mber/volume)on 07-30-2022 RBC (Bld) [#/Vol] 4.93 10*6/uL 4.2-5.4 [facility] Work Phone: Blood hemoglobin measurement (mass/volume)on 07-30-2022 Hemoglobin (Bld) [Mass/Vol] 14.3 g/dL 12.0-15.0 [facility] Work Phone: Blood lymphocytes/100 leukoc yteson 07-30-2022 Lymphocytes/100 WBC (Bld) 25.6 % 19-41 [facility] Work Phone: Blood monocytes/100 leukocyt eson 07-30-2022 Monocytes/100 WBC (Bld) 6.4 % 0-[address] [facility] Work Phone: Blood platelet mean volumeon 07-30-2022 Platelet mean volume (Bld) [Entitic vol] 9.7 fL 6.2-12.0 [facility] Work Phone: Determination of erythrocyte mean corpuscular volume (MCV)on 07-30-2022 MCV (RBC) [Entitic vol] 87.0 fL 81-[address] [facility] Work Phone: Hematocrit Auto (Bld) [Volum e fraction]on 07-30-2022 Hematocrit (Bld) [Volume fraction] 42.9 % 37-47 [facility] Work Phone: Laboratory - Chemistry and C hemistry - challengeon 07-30-2022 CO2 [Moles/Vol] 26.0 mmol/L 21.0-32.0 [facility] Work Phone: Urea nitrogen/Creatinine [Mass ratio] 21.4 mg/mg 10-20 [facility] Work Phone: Laboratory - Hematology and Cell countson 07-30-2022 Erythrocyte distribution width (RBC) [Entitic vol] 38.5 fL 35.1-43.9 [facility] Work Phone: Erythrocyte distribution width (RBC) [Ratio] 12.2 % 11.6-14.6 [facility] Work Phone: Immature granulocytes/100 WBC (Bld) 0.100 % 0.0-0.9 [facility] Work Phone: Comment on above: IG% - Immature Granu locytes (promyelocytes, myelocytes and metamyelocytes) > 1% indicates that a LEFT SHIFT is Present. MCH (RBC) [Entitic mass] 29.0 pg 27.0-32.0 [facility] Work Phone: Nucleated RBC/100 WBC (Bld) [Ratio] 0 % 0-5 [facility] Work Phone: MCHC Auto (RBC) [Mass/Vol]on 07-30-2022 MCHC (RBC) [Mass/Vol] 33.3 g/dL 32-36 [facility] Work Phone: No Panel Informationon 07-30 D-Dimer Quantitative (PE/DVT) 0.36 FEU/ug/m 0.27-0.49 [facility] Work Phone: Comment on above: NORMAL D-Dimer level (<0.50) indicates no DVT or PE. Estimated Creatinine Clearance Calc 85.72 ml/min [facility] Work Phone: Estimated GFR (MDRD) Amer 117 mL/min >60 [facility] Work Phone: Comment on above: GFR Calc Estimated GFR (MDRD) Non-Af Amer 97 mL/min >60 [facility] Work Phone: Comment on above: Non- GFR Calc Platelets bldon 07-30-2022 Platelets (Bld) [#/Vol] 301 10*3/uL 150-450 [facility] Work Phone: Serum or plasma calcium venkatesh urement (mass/volume)on 07-30-2022 Calcium [Mass/Vol] 8.7 mg/dL 8.5-10.1 [facility] Work Phone: Serum or plasma creatinine m easurement (mass/volume)on 07-30-2022 Creatinine [Mass/Vol] 0.70 mg/dL 0.55-1.02 [facility] Work Phone: Comment on above: The validity of the calculated GFR & GFRAA in patients over 70 years has not been determined. Clinical correlation is essential. Serum or plasma urea nitroge n measurement (mass/volume)on 07-30-2022 Urea nitrogen [Mass/Vol] 15 mg/dL 7-18 [facility] Work Phone: Thin prep Papanicolaou smear with manual screeningon 07-30-2022 Thin prep Papanicolaou smear with manual screening 6 02-14 [facility] Work Phone: Vital Signs Date Time Vital Sign Value Performing Clinician Facility 05-30-2023 07:59-0400 Body height 162.6 cm Andrei Webster MD Work Phone: [facility] 05-30-2023 07:59-0400 Body mass index (BMI) [Ratio] 42.43 kg/m2 Andrei Webster MD Work Phone: [facility] 05-30-2023 07:59-0400 Body temperature 98.1 [degF] Andrei Webster MD Work Phone: [facility] 05-30-2023 07:59-0400 Body weight 112.13 kg Andrei Webster MD Work Phone: [facility] 05-02-2023 07:52-0400 Body height 162.6 cm Andrei Webster MD Work Phone: [facility] 05-02-2023 07:52-0400 Body mass index (BMI) [Ratio] 42.74 kg/m2 Andrei Webster MD Work Phone: [facility] 05-02-2023 07:52-0400 Body temperature 97.39 [degF] Andrei Webster MD Work Phone: [facility] 05-02-2023 07:52-0400 Body weight 112.95 kg Andrei Webster MD Work Phone: [facility] 03-21-2023 08:57-0400 Body height 162.6 cm Andrei Webster MD Work Phone: [facility] 03-21-2023 08:57-0400 Body mass index (BMI) [Ratio] 42.05 kg/m2 Andrei Webster MD Work Phone: [facility] 03-21-2023 08:57-0400 Body temperature 97.59 [degF] Andrei Webster MD Work Phone: [facility] 03-21-2023 08:57-0400 Body weight 111.13 kg Andrei Webster MD Work Phone: [facility] 03-17-2023 16:54-0400 Diastolic blood pressure 82 mm[Hg] Dr. Alize Narayanan Work Phone: [facility] 03-17-2023 16:54-0400 Systolic blood pressure 128 mm[Hg] Dr. Alize Narayanan Work Phone: [facility] 03-17-2023 16:00-0400 Heart rate 89 /min Dr. Alize Narayanan Work Phone: [facility] 03-17-2023 16:00-0400 Respiratory rate 17 /min Dr. Alize Narayanan Work Phone: [facility] 03-17-2023 16:00-0400 SaO2% (BldA) [Mass fraction] 97 % Dr. Alize Narayanan Work Phone: [facility] 03-17-2023 13:55-0400 Body mass index (BMI) [Ratio] 44.2 kg/m2 Dr. Alize Narayanan Work Phone: [facility] 03-17-2023 13:55-0400 Body weight 113.[address] Aliez Narayanan Work Phone: [facility] 03-17-2023 13:41-0400 Body height 160.[address] Alize Narayanan Work Phone: [facility] 03-17-2023 13:41-0400 Body temperature 97.8 [degF] Dr. Alize Narayanan Work Phone: [facility] 12-07-2022 08:02-0500 Body temperature 98 [degF] Dr. Alize Narayanan Work Phone: [facility] 12-07-2022 08:02-0500 Diastolic blood pressure 80 mm[Hg] Dr. Alize Narayanan Work Phone: [facility] 12-07-2022 08:02-0500 Heart rate 136 /min Dr. Alize Narayanan Work Phone: [facility] 12-07-2022 08:02-0500 Respiratory rate 16 /min Dr. Alize Narayanan Work Phone: [facility] 12-07-2022 08:02-0500 SaO2% (BldA) [Mass fraction] 98 % Dr. Alize Narayanan Work Phone: [facility] 12-07-2022 08:02-0500 Systolic blood pressure 124 mm[Hg] Dr. Alize Narayanan Work Phone: [facility] 07-30-2022 15:25-0400 Respiratory rate 16 /min [facility] Work Phone: 07-30-2022 14:05-0400 Diastolic blood pressure 94 mm[Hg] [facility] Work Phone: 07-30-2022 14:05-0400 Heart rate 90 /min [facility] Work Phone: 07-30-2022 14:05-0400 SaO2% (BldA) [Mass fraction] 99 % [facility] Work Phone: 07-30-2022 14:05-0400 Systolic blood pressure 158 mm[Hg] [facility] Work Phone: 07-30-2022 13:55-0400 Body height 160.02 cm [facility] Work Phone: 07-30-2022 13:55-0400 Body mass index (BMI) [Ratio] 42.6 kg/m2 [facility] Work Phone: 07-30-2022 13:55-0400 Body temperature 98.2 [degF] [facility] Work Phone: 07-30-2022 13:55-0400 Body weight 109.22 kg [facility] Work Phone: Encounters Encounter Date Encounter Type Care Provider Facility Start: 06-12-2025 ambulatory [facility] Facility:[facility] Start: 10-09-2024 End: 10-09-2024 ambulatory [facility] Facility:[facility] Start: 07-02-2024 End: 07-06-2024 ambulatory [facility] Start: 06-05-2024 Encounter for genera l adult medical examination with abnormal findings Ciera Cory [facility] Start: 06-01-2024 End: 06-01-2024 ambulatory [facility] Facility:[facility] Start: 10-12-2023 End: 10-12-2023 ambulatory [facility] Work Phone: Start: 10-12-2023 End: 10-12-2023 Patient encounter procedure [facility] Work Phone: Start: 08-03-2023 Orders Only Andrei seo MD Work Phone: [facility] Comment on above: Seasonal allergic rh initis, unspecified trigger (Primary Dx) Start: 05-30-2023 End: 05-30-2023 Office outpatient visit 25 minutes Andrei Webster MD Work Phone: [facility] [place] Comment on above: Sensorineural hearin g loss, unilateral, right ear, with restricted hearing on the contralateral side (Primary Dx); Subjective tinnitus of both ears Start: 05-20-2023 End: 05-21-2023 ambulatory PROVIDER NOT IN SYSTEM [facility] Start: 05-18-2023 End: 05-18-2023 ambulatory [facility] Work Phone: Start: 05-18-2023 End: 05-18-2023 Patient encounter procedure [facility] Work Phone: Start: 05-02-2023 End: 05-06-2023 ambulatory ANDREI WEBSTER [facility] Start: 05-02-2023 End: 05-02-2023 Clinical Support Vincenzo Ovalle Work Phone: [facility] Comment on above: Sensorineural hearin g loss, bilateral (Primary Dx); Hearing loss of right ear, unspecified hearing loss type Start: 05-02-2023 End: 05-02-2023 Office outpatient visit 25 minutes Andrei Webster MD Work Phone: [facility] [place] Comment on above: Sensorineural hearin g loss, unilateral, right ear, with restricted hearing on the contralateral side (Primary Dx); Hearing loss of right ear, unspecified hearing loss type; Osteoma of external ear canal Start: 03-21-2023 End: 03-21-2023 Office outpatient new 45 minutes Tono Tevinrose mary AdenLissa Work Phone: [facility] Comment on above: Seasonal allergic rh initis due to pollen (Primary Dx); BPPV (benign paroxysmal positional vertigo), right; Hearing loss of right ear, unspecified hearing loss type; Osteoma of external ear canal Start: 03-17-2023 End: 03-17-2023 Emergency department patient visit Dr. Alize Narayanan Work Phone: [facility] Start: 12-20-2022 End: 12-20-[address] Alize Narayanan Work Phone: [facility] Work Phone: Start: 12-20-2022 End: 12-20-[address] Alize Narayanan Work Phone: [facility] Start: 12-07-2022 End: 12-07-[address] Alize Narayanan Work Phone: [facility] Start: 11-01-2022 End: 11-01-[address] Alize Narayanan Work Phone: [facility] Start: 07-30-2022 End: 07-30-2022 Emergency department patient visit [facility] Start: 03-17-2021 Physical examination [facility] Procedures Date Procedure Procedure Detail Performing Clinician Start: 05-18-2023 MRI of brain with contrast Start: 03-17-2023 Plain chest X-ray Dr. Bert Narayanan Work Phone: Start: 07-30-2022 Plain chest X-ray Plan of Treatment Date Care Activity Detail Author Start: 03-17-2031 Tetanus vaccination Tetanus: Every 1 0yrs [facility] Start: 05-28-2024 End: 05-28-2024 Patient encounter procedure [facility] Start: 06-03-2023 COVID-19 Vaccine () COVID-19 Vaccine () [facility] Start: 06-03-2023 Influenza vaccination [facility] Start: 05-30-2023 End: 05-30-2023 Patient encounter procedure 05/30/2023 8:00 AM EDT Office Visit [facility] [address] [place] [address] Andrei Webster MD [address] [place] [id number] [facility] Start: 05-02-2023 End: 05-02-2023 Patient encounter procedure [facility] Start: 03-17-2023 [facility] Start: 12-11-2021 COVID-19 Vaccine (4 - Moderna series) COVID-19 Vaccine (4 - Moderna series) [facility] Start: 2019 Screening for malign ant neoplasm of breast Mammogram [facility] Start: 02-09-2000 Screening for malign ant neoplasm of cervix Pap Smear [facility] Start: 1997 Hepatitis C screening Hepatitis C Sc reening [facility] Start: 1994 HIV screening HIV Screening [facility] Start: 1991 Depression screening using PHQ-9 (Patient Health Questionnaire 9) score Depression Screening (PHQ-2/9) [facility] Start: 1982 History and physical examination, annual for health maintenance Wellness Visit [facility] Start: 1979 Screening for malign ant neoplasm of cervix Pap Smear [facility] End: 05-02-2024 Creatinine [Mass/volume] in Serum or Plasma Creatinine, Serum Lab Routine Sensorineural hearing loss, unilateral, right ear, with restricted hearing on the contralateral side 1 Occurrences starting 05/02/2023 until 05/02/2024 [facility] Comment on above: 1 Occurrences starti ng 05/02/2023 until 05/02/2024 Creatinine [Mass/vol ume] in Serum or Plasma Creatinine, Serum Lab Routine Sensorineural hearing loss, unilateral, right ear, with restricted hearing on the contralateral side 05/02/2023 9:09 AM EDT [facility] End: 05-02-2024 MRI of head MR IAC With And Without Contrast Imaging Routine Sensorineural hearing loss, unilateral, right ear, with restricted hearing on the contralateral side 1 Occurrences starting 05/02/2023 until 05/02/2024 [facility] Work Phone: Comment on above: 1 Occurrences starti ng 05/02/2023 until 05/02/2024 Patient Education [facility] Work Phone: Patient referral [facility] Work Phone: Immunizations Immunization Date Immunization Notes Care Provider Fa vedaty 03-17-2021 tetanus toxoid, redu yary diphtheria toxoid, and acellular pertussis vaccine, adsorbed [facility] 07-23-2013 Influenza virus vaccine W [facility] Payers Date Payer Category Payer Unknown [id number] 2024 Self-pay [id number] 2012 Unknown [facility] [employer] [id number] 2012-Present [phone] [address] [address] [place] [address] [id number] 2012 Unknown [id number] 1979 Unknown [id number] 1979 Unknown [id number] 1979 Unknown [id number] 1979 Unknown [id number] Unknown [id number] Unknown [id number] Unknown [id number] Social History Date Type Detail Facility Start: 07-30-2022 End: 03-17-2023 Tobacco smoking status MIIS Unknown if ever smoked [facility] Start: 12-18-2020 Non-smoker [facility] Start: 1979 Sex [facility]igned At Female [facility] [facility] Start: 03-21-2023 Tobacco smoking status MIIS Never smoked tobacco [facility] Start: 03-21-2023 Tobacco use and exposure Smokeless tobacco non-user [facility] Start: 03-21-2023 End: 05-30-2023 Alcohol intake Current drinker of alcohol (finding) [facility] Start: 1980 Sex Assigned At Not on file [facility] Start: 03-21-2023 End: 05-30-2023 Gender identity Not on file [facility] Start: 03-21-2023 End: 05-30-2023 History of Social function [facility] NEGATED: Highlighted row [facility] Work Phone: NEGATED: Highlighted row [facility] Medical Equipment Procedure Code Equipment Code Equipment Origin al Text Equipment Identifier Dates Robot-assisted total abdominal hysterectomy with bilateral salpingo-oophorectomy (BRITTANI MARLENI 3GRM HEMOSTAT ABS FDA Start: 11-02-2018 Robot-assisted total abdominal hysterectomy with bilateral salpingo-oophorectomy (BRITTANI MARLENI 3GRM HEMOSTAT ABS FDA Start: 11-02-2018 Robot-assisted total abdominal hysterectomy with bilateral salpingo-oophorectomy (BRITTANI MARLENI 3GRM HEMOSTAT ABS FDA Start: 11-02-2018 Robot-assisted total abdominal hysterectomy with bilateral salpingo-oophorectomy (BRITTANI MARLENI 3GRM HEMOSTAT ABS FDA Start: 11-02-2018 Robot-assisted total abdominal hysterectomy with bilateral salpingo-oophorectomy (BRITTANI MARLENI 3GRM HEMOSTAT ABS FDA Start: 11-02-2018 Clinical Notes 03-21-2023 to 07-02-2024 Andrei Webster MD - 05/30/2023 8:12 AM Laisha Ferrara MA - 05/30/2023 8:00 AM Vincenzo Colvin AuD - 05/02/2023 8:12 AM Andrei Melendez MD - 05/02/2023 8:06 AM EDT Note Date & Type Note Facility 07-02-2024 Note [facility] [address] [facility] [address] [facility] [id number] Dept: [phone] Andrei Webster MD Elaine Appiah 44 y.o. female Patient presents with a [...] 2019 Social History Socioeconomic History Marital status: Tobacco [...] an understanding o (more content not included)... [facility] 05-30-2023 History of Present illness Narrative [facility] [address] [facility] [place] [address] [facility] [address] Dept: [phone] MD Elaine Rolon 43 y.o. female Patient [...] of submandibular glands, clear salivary flow from Adjuntas's ducts, no stones of Michael's ducts Temporomandibular [...] well to amplification. An appointment with the hospital medicine director in the office is offered if the [...] Negative. Psychiatric/Behavioral: Negative. documented in this encounter [facility] 05-02-2023 History of Present illness Narrative Images from the original note were not included. [facility] [address] [address] Name: Elaine Appiah : 1980 Date: 05/02/23 [...] expressed understanding. Electronically Signed by: Vasquez Yarbrough, [facility] 05/02/23 8:12 AM Audiogram: documented in this encounter [facility] 05-02-2023 History of Present illness Narrative [facility] [address] [facility] [place] [address] [facility] [address] Dept: [phone] Andrei Webster MD Elaine Appiah 43 y.o. [...] of submandibular glands, clear salivary flow from Michael's ducts, no stones of Adjuntas's ducts Temporomandibular Joint: no crepitus with motion, [...] headaches. Psychiatric/Behavioral: Negative. documented in this encounter [facility] 03-21-2023 Instructions Andrei Webster MD - [...] IN THIS DOCUMENT documented in this encounter [facility] 03-21-2023 History of Present illness Narrative [facility] [address] [facility] [place] [address] [facility] [id number] Dept: [phone] Andrei Webster MD Elaine Appiah 43 y.o. 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 Psychiatric/Behavioral: Negative. 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 [facility] Sensorineural hearing loss, unilateral, right ear, with restricted hearing on the contralateral side- Primary Hearing loss of right ear, unspecified hearing loss type 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 [facility] Sensorineural hearing loss, bilateral- Primary Hearing loss of right ear, unspecified hearing loss type [facility] Diagnosis Sensorineural hearing loss, unilateral, right ear, with restricted hearing on the contralateral side- Primary Subjective tinnitus of both ears [facility] Diagnosis Seasonal allergic rhinitis, unspecified trigger- Primary documented in this encounter [facility] Chief Complaint and Reason for Visit [...] Will No July 30 2:05pm Power of Facility Service Associate No July 30, 2022 2:05pm Advance Directive Response Recorded Date/ Time Living Will No August 07 1:54pm Power of Facility Service Associate No August 07, 2022 1:54pm Advance Directive Response Recorded Date/ Time Living Will No March 17, 2023 1:55pm Power of Facility Service Associate No March 17 1:55pm Advance Directive Response Recorded Date/ Time Living Will No March 17, 2023 12:55pm Power of Facility Service Associate No March 17 12:55pm Reason for Referral Specialty Diagnoses / Procedures Referred By Lilia t Referred To Contact Audiology Diagnoses Hearing loss of right ear, unspecified hearing loss type Andrei Webster MD [address] [place] [address] [place] [id number] [address] [address] [place], [place] [id number] [place] [address] Referral ID Status Reason Start Date Expiration Date V isits Requested Visits Authorized [id number] Authorized 03/21/2023 03/20/2024 1 1 Specialty Diagnoses / Procedures Referred By Contac t Referred To Contact Radiology Diagnoses Sensorineural hearing loss, unilateral, right ear, with restricted hearing on the contralateral side Procedures MR IAC With And Without Contrast Andrei Webster MD [facility] [address] [place] [address] Referral ID Status Reason Start Date Expiration Date V isits Requested Visits Authorized [id number] New Request 05/02/2023 05/01/2024 1 1 Referral ID Status Reason Start Date Expiration Date V isits Requested Visits Authorized [id number] Authorized 05/02/2023 05/01/2024 1 1 Summary Purpose [...] Dr. Demario Palomares MD Emergency Provider Active [employer]ipe [employer] Supervisor Relationship Specialty Start Date End Date Tono Alcaraz DO [address] [place] [id number] PCP - General Family Medicine 02/17/23 [employer]ipe [employer] Supervisor Relationship Specialty Start Date End Date Tono Alcaraz DO [address] [place] [address] PCP - General Family Medicine 02/17/23 [employer] Supervisor Relationship Specialty Start Date End Date Tono Alcaraz DO [address] [place], [place] [address] PCP - General Family Medicine 02/17/23 Team Status: Inactive Member Role Status Dates Dr. Alize Narayanan DO Primary Care Provider Active Dr. Demario Palomares MD Attending Provider, Emergency Provider Active Team Status: Inactive Member Role Status Dates Dr. Alize Narayanan DO Primary Care Provider Active Dr. Andrei Webster MD Attending Provider, Referring Pro vider Active [employer] Supervisor Relationship Specialty Start Date End Date Lissa Tono DO [place] [address] [place] [address] PCP - General Family Medicine 02/17/23 [employer] Pipe Lines Supervisor Relationship Specialty Start Date End Date Tono AlcarazDO [address] [place] [id number] PCP - General Family Medicine 02/17/23 Team Status: Inactive Member Role Status Dates Dr. Alize Narayanan DO Primary Care Provider Active GERA Valverde Attending Provider Active Reason for Visit (unrecogniz ed section and content) Reason Comments Consult Hearing loss Specialty Diagnoses / Procedures Referred By Lilia t Referred To Contact Otolaryngology Diagnoses Hearing loss of right ear, unspecified hearing loss type Tono Alcaraz DO [address] [place] [address] Andrei Webster MD [address] [address] Referral ID Status Reason Start Date Expiration Date Visits Re quested Visits Authorized [id number] Closed 02/17/2023 02/17/2024 1 1 Reason Comments Hearing Loss Follow up hearing lo ss Specialty Diagnoses / Procedures Referred By Lilia reynaga Referred To Contact Audiology Diagnoses Hearing loss of right ear, unspecified hearing loss type Andrei Webster MD [address] [place] [address] [facility] [address] [place] [address] Referral ID Status Reason Start Date Expiration Date Visits Re quested Visits Authorized [id number] Closed 03/21/2023 03/20/2024 1 1 Reason Comments Follow-up Follow up [facility]IN[facility] conc erns INFORMATION SOURCE (unrecogn ized section and content) DATE CREATED AUTHOR 05/07/2023 [facility] DATE CREATED AUTHOR AUTHOR'S ORGANIZ ATION 05/21/2023 [facility] DATE CREATED AUTHOR AUTHOR'S ORGANIZ ATION 07/07/2024 [facility] DATE CREATED AUTHOR AUTHOR'S ORGANIZ ATION 05/27/2025 [facility] FOR RECORDS PERTAINING TO PATIENTS WHO [...] BE BASED ON THE PRIMARY CLINICAL RECORDS. [email or web address] [facility]. provides no warranty or guarantee of the accuracy or completeness of information in this document.
[2025-05-30 07:35] LABS: Hematocrit 39.1 % (37-47); Hemoglobin 12.9 g/dL (12.0-15.0); Immature Granulocytes Count 0.010 X10^3/uL (0.0-0.0); Mean Corp Hgb Conc 33.0 g/dL (32-36); Mean Corpuscular Volume 87.9 fL (81-99); Mean Platelet Vol. 9.6 fl (6.2-12.0); NRBC Flagged by Analyzer 0 % (0-5); Platelet Count 306 K/mm3 (150-450); RBC Distribution Width CV 12.1 % (11.6-14.6); RBC Distribution Width SD 38.8 fl (35.1-43.9); Red Blood Count 4.45 M/mm3 (4.2-5.4); White Blood Count 5.7 K/mm3 (4.4-11.0)
[2025-05-30 08:23] LABS: AST(SGOT) 12 U/L (<=31); Alanine Aminotransfer ALT/SGPT 16 U/L (<=34); Albumin, Serum 3.8 g/dL (3.5-5.0); Alkaline Phosphatase 49 U/L (35-104); Anion Gap 11 (5-15); BUN 19 mg/dL (4-19); BUN/Creat Ratio 27.3 RATIO (10-20); Calcium,Total 8.8 mg/dL (7.6-11.0); Carbon Dioxide 24.1 mmol/L (21.0-32.0); Chloride 105 mmol/L (98-108); Cholesterol 165 mg/dL (<=200); Globulin 2.6 g/dL (2.2-4.2); Glucose 99 mg/dL (70-99); Low Density Lipoprotein Calc. 92 mg/dL; Potassium 4.2 mmol/L (3.3-5.1); Triglycerides 69 mg/dL; Very Low Density Lipoprotein 14 mg/dL (5-40); cholesterol:hdl ratio screen 2.81
[2025-05-30 08:47] LABS: Ferritin 50 ng/mL (22-378); Iron 47 ug/dL (50-170); Vitamin B12 513 pg/mL (180-914); Vitamin D,25 Hydroxy 18.7 ng/mL (30-100)
[2025-05-31 04:07] LABS: PROGESTERONE 0.3 ng/mL (.)
[2025-06-06 14:08] LABS: Testosterone, % Free 1.11 % (0.50-2.80); Testosterone, Free 0.36 ng/dL (0.10-0.85)
== END | disposition home or self-care (01) ==
LOC: LAB 06:41
PROVIDERS: PCP Family Medicine; Referring Provider Family Medicine; Visit Provider Family Medicine
DX: E55.9 Vitamin D deficiency, unspecified (principal); E11.69 Type 2 diabetes mellitus with other specified complication; E61.1 Iron deficiency
CPT/HCPCS: 36415; 80053; 80061; 82306; 82607; 82670; 82728; 83540; 84144; 84402; 84403; 84439; 84443; 85025

== ENCOUNTER → 2025-06-12 | Outpatient (CLI) | payer BC, SELFPAY ==
--- NOTE | 2025-06-12 07:54 | BI_ITS ---
EXAM: SCRN MAMM (CAD)W/DI BILAT DATE: 06/12/2025 CLINICAL HISTORY: F, Age 45 y/o , SCREENING No family history. TECHNIQUE: Procedure Code: [id number] Modality: MG Procedure: SCRN MAMM (CAD)W/DI BILAT COMPARISON: Prior exam(s) dated July 21, 2020.. FINDINGS: TISSUE DENSITY: The breasts are heterogeneously dense, which may obscure small masses. Bilateral Breast Mammographic Findings: No significant masses, calcifications or other abnormalities are identified. Stable small benign-appearing axillary lymph nodes. No suspicious masses, areas of developing architectural distortion, or suspicious calcifications. There has been no significant interval change. BI/SCRN MAMM (CAD)W/DI BILAT IMPRESSION: Stable bilateral screening mammogram. OVERALL FINAL ASSESSMENT BI-RADS 2: BENIGN RECOMMENDATION: Routine annual follow-up in 1 Year A letter with findings and recommendations will be mailed to the patient. Reading Location: [facility]
== END | disposition home or self-care (01) ==
PROVIDERS: PCP Family Medicine; Referring Provider Family Medicine; Visit Provider Family Medicine
DX: Z12.31 Encounter for screening mammogram for malignant neoplasm of breast (principal)
CPT/HCPCS: 77063; 77067